=== PATIENT | male | born 1940 | race Caucasian/White ===

== ENCOUNTER 2017-04-10 14:38 | Emergency (ER) | payer MEDICARE, SELFPAY ==
--- NOTE | 2017-04-10 | CT_ITS ---
CT head/brain wo con HISTORY: Headache, pain, contusion, abrasion, hematoma following injury to the right side of the forehead ITS.REASON: FALL ORDERING PHYSICIAN: Darline Catalan MD PATIENT AGE: 76 years COMPARISON: None TECHNIQUE: Axial images obtained without contrast. Brain and bone windows reviewed. FINDINGS: No midline shift, mass effect, intracranial hemorrhage, hydrocephalus, or extra-axial fluid collection is evident. Mild soft tissue swelling is present in the right frontal region on the right The calvarium has an unremarkable appearance. No mastoid effusion. No sinus air-fluid levels.. IMPRESSION: 1. No acute intracranial findings. 2. Right frontal scalp hematoma
[2017-04-10 15:15] VITALS: BP 139/86; PULSE 60; RESP 16; TEMP 36.4; O2SAT 96; BMI 23.8
--- NOTE | 2017-04-10 15:31 | CT_ITS ---
CT cervical spine wo con INDICATION: Neck pain following injury ITS.REASON: fall ORDERING PHYSICIAN: Darline Catalan MD PATIENT AGE: 76 years COMPARISON: None TECHNIQUE: Axial images are obtained without contrast. Sagittal and coronal reformatted images are reviewed as well. FINDINGS: No acute fracture is evident. There is multilevel cervical spondylosis. C2-C3: Anterior osteophytes with 4 mm anterolisthesis of C2 and bulging disc with right-sided foraminal narrowing and mild left foraminal narrowing from uncovertebral hypertrophy. C3-C4: Degenerative disc disease with endplate hypertrophic change and minimal central disc protrusion. C4-C5: Degenerative disc disease with endplate disc osteophyte complex and uncovertebral hypertrophy with moderate to severe bilateral foraminal narrowing and bilateral lateral recess narrowing greater on the left. C5-C6: Severe degenerative disc disease with endplate disc osteophyte complex and uncovertebral hypertrophy with borderline bony canal stenosis and severe bilateral foraminal narrowing C6-C7: Degenerative disc disease with bulging disc and endplate osteophytes. Moderate bilateral foraminal narrowing. C7-T1 3 mm anterolisthesis of C7. Lung apices are clear. There are scattered small lymph nodes in the neck. IMPRESSION: 1. No acute fracture. 2. Severe cervical spondylosis as described above with degenerative disc disease, bulging disc with disc osteophyte complexes, and uncovertebral hypertrophy with varying degrees of lateral recess and foraminal narrowing and borderline canal stenosis. Please see above for detailed description at each level.
--- NOTE | 2017-04-10 15:31 | CT_ITS ---
CT facial bones wo con CLINICAL INDICATION: Right-sided facial pain and swelling following injury with abrasion and hematoma ITS.REASON: fall ORDERING PHYSICIAN: Darline Catalan MD PATIENT AGE: 76 years TECHNIQUE:Axial, sagittal, and coronal images are generated and reviewed without contrast COMPARISON: None FINDINGS: No acute fracture or dislocation evident. Soft tissue swelling is present in the right frontal region. No underlying fracture. There is an old nasal bone fracture on the left There are scattered small nodes in the neck. Prior bilateral ocular surgery with scleral banding. IMPRESSION: 1. No acute fracture. 2. Right frontal scalp hematoma. 3. Old left nasal bone fracture
--- NOTE | 2017-04-10 17:10 | HMH.EDFALL ---
ED Disposition Clinical Impression: Nasal fracture, Soft tissue swelling Disposition: Home, Self-Care Condition on Discharge: Good Additional Instructions: 1- rest. 2- wam soap and water. 3- daily neosporin. 4- do not blow your nose. 5- keflex 500 mg tid. 6- see pcp in am 7- follow up with dr ferguson. Prescriptions: cephALEXin [cephALEXin 500mg capsule] 500 mg PO QID #28 cap Referrals: Israel Ugalde [Primary Care Provider] - Kvng Ferguson MD [Staff Physician] - - Critical Care Critical Care Time: No Attestation: On 04/10/17, the high probability of a clinically significant, sudden or life threatening deterioration of the following system(s) required my full and direct attention, intervention and personal management. The time I documented below is in addition to time spent performing reported procedures but includes the following listed in this critical care notation. Medical Decision Making Vital Signs: 04/10/17 15:15 Temperature 97.6 F Temperature Source Oral Pulse Rate [Right Radial] 60 Respiratory Rate 16 Blood Pressure [Right Arm] 139/86 Blood Pressure Mean [Right Arm] 103 Blood Pressure Source [Right Arm] Automatic Cuff Blood Pressure Position [Right Arm] Supine 02 Sat by Pulse Oximetry 96 Oxygen Delivery Method Room Air Orders (Tests/Meds): ORDERS Category Date Time Status CT cervical spine wo con Stat Cat Scan 04/10/17 15:[address] facial bones wo con Stat Cat Scan 04/10/17 15:[address] head/brain wo con Routine Cat Scan 04/10/17 Taken - CT Data CT Scan: Head, C-Spine Time Received: 17:[address] Reviewed: Yes: I have viewed the radiologist's interpretation Preliminary Findings: Normal/NAD Findings Narrative: The CT scan shows soft tissue swelling righ tcheeck. Question old fracture nasal fracture. - Moisés Inquiry Pt receiving controlled substance: No Moisés was queried for this patient: No Fall HPI - General Chief Complaint: Fall Stated Complaint: AO 04/10/17 hit head on rock Mode of Arrival: Ambulatory Limitations: No Limitations Description of Symptoms (Recalled from ER Triage Doc. by RN): FELL AND HIT HEAD ON RIGHT SIDE. EMS SEEN PT HOURS AGO AND PT REFUSED TRANSFER AT THAT TIME. PT FELT THAT HE SHOULD COME TO HOSPITAL NOW D/T FEAR OF HIGH PAIN TOLERANCE. - History of Present Illness HPI Narrative: 76 years old white male who slipped over rocks at 10 am. He scarped his right face on the rocks.. Developed facial abrasions on the right cheek and right knee. There was no loss of consciousness there is no neck pain no nausea or vomiting. He is not on blood thinners. He was brought by the family for recheck. I discussed with him using [address] scan and he requested CT scan. MD complaint: fall Onset (ago): hour(s) (5-6 hours .) Fall from: standing Fall witnessed: no Place fall occurred: other Loss of consciousness: none Prolonged down time: no Symptoms prior to fall: none Context: tripped/slipped Location of injury: face, other (His right knee. ) Associated symptoms (after fall): denies - Related Data Previous Rx's Medication Instructions Recorded cephALEXin [cephALEXin 500mg 500 mg PO QID #28 cap 04/10/17 capsule] Allergies Allergy/AdvReac Type Severity Reaction Status Date / Time No Known Allergies Allergy Unverified 01/25/17 14:24 [facility] History I have reviewed the patient's past medical history: Yes (He has a right knee replacement history of infection. ) - Social History Alcohol Intake: never - Psychiatric History Expresses thoughts of harming self/others: None Suicide Plan Description: No Plan ROS Obtained: Yes All systems reviewed & no additional complaints Physical Exam - General General appearance: alert, in no apparent distress - Head Head exam: normocephalic, other (Superficial abrasions of the right cheekbone. No deformity. ) - Eye Eye exam: Present: normal ap
--- NOTE | 2017-04-10 17:13 | ED_ITS ---
ED Disposition Clinical Impression: Nasal fracture, Soft tissue swelling Disposition: Home, Self-Care Condition on Discharge: Good Additional Instructions: 1- rest. 2- wam soap and water. 3- daily neosporin. 4- do not blow your nose. 5- keflex 500 mg tid. 6- see pcp in am 7- follow up with dr ferguson. Prescriptions: cephALEXin [cephALEXin 500mg capsule] 500 mg PO QID #28 cap Referrals: Israel Ugalde [Primary Care Provider] - Kvng Ferguson MD [Staff Physician] - - Critical Care Critical Care Time: No Attestation: On 04/10/17, the high probability of a clinically significant, sudden or life threatening deterioration of the following system(s) required my full and direct attention, intervention and personal management. The time I documented below is in addition to time spent performing reported procedures but includes the following listed in this critical care notation. Medical Decision Making Vital Signs: 04/10/17 15:15 Temperature 97.6 F Temperature Source Oral Pulse Rate [Right Radial] 60 Respiratory Rate 16 Blood Pressure [Right Arm] 139/86 Blood Pressure Mean [Right Arm] 103 Blood Pressure Source [Right Arm] Automatic Cuff Blood Pressure Position [Right Arm] Supine 02 Sat by Pulse Oximetry 96 Oxygen Delivery Method Room Air Orders (Tests/Meds): ORDERS Category Date Time Status CT cervical spine wo con Stat Cat Scan 04/10/17 15:[address] facial bones wo con Stat Cat Scan 04/10/17 15:[address] head/brain wo con Routine Cat Scan 04/10/17 Taken - CT Data CT Scan: Head, C-Spine Time Received: 17:[address] Reviewed: Yes: I have viewed the radiologist's interpretation Preliminary Findings: Normal/NAD Findings Narrative: The CT scan shows soft tissue swelling righ tcheeck. Question old fracture nasal fracture. - Moisés Inquiry Pt receiving controlled substance: No Moisés was queried for this patient: No Fall HPI - General Chief Complaint: Fall Stated Complaint: AO 04/10/17 hit head on rock Mode of Arrival: Ambulatory Limitations: No Limitations Description of Symptoms (Recalled from ER Triage Doc. by RN): FELL AND HIT HEAD ON RIGHT SIDE. EMS SEEN PT HOURS AGO AND PT REFUSED TRANSFER AT THAT TIME. PT FELT THAT HE SHOULD COME TO HOSPITAL NOW D/T FEAR OF HIGH PAIN TOLERANCE. - History of Present Illness HPI Narrative: 76 years old white male who slipped over rocks at 10 am. He scarped his right face on the rocks.. Developed facial abrasions on the right cheek and right knee. There was no loss of consciousness there is no neck pain no nausea or vomiting. He is not on blood thinners. He was brought by the family for recheck. I discussed with him using [address] scan and he requested CT scan. MD complaint: fall Onset (ago): hour(s) (5-6 hours .) Fall from: standing Fall witnessed: no Place fall occurred: other Loss of consciousness: none Prolonged down time: no Symptoms prior to fall: none Context: tripped/slipped Location of injury: face, other (His right knee. ) Associated symptoms (after fall): denies - Related Data Previous Rx's Medication Instructions Recorded cephALEXin [cephALEXin 500mg 500 mg PO QID #28 cap 04/10/17 capsule] Allergies Allergy/AdvReac
[2017-04-10 17:30] VITALS: BP 135/78; PULSE 61; RESP 18; TEMP 36.7; O2SAT 96
== END 2017-04-10 17:30 | disposition home or self-care (01) ==
PROVIDERS: Emergency Provider Emergency Medicine; Family Provider Internal Medicine; PCP Internal Medicine
DX: S02.2XXA Fracture of nasal bones, initial encounter for closed fracture (principal); S00.81XA Abrasion of other part of head, initial encounter; W01.198A Fall on same level from slipping, tripping and stumbling with subsequent striking against other object, initial encounter; Y92.79 Other farm location as the place of occurrence of the external cause; Z96.651 Presence of right artificial knee joint
CPT/HCPCS: 70450; 70486; 72125; 99281

== ENCOUNTER 2017-08-02 19:12 | Emergency (ER) | payer MEDICARE, SELFPAY ==
[2017-08-02 19:18] VITALS: BP 169/78; PULSE 60; RESP 14; TEMP 36.4; O2SAT 100; BMI 24.9
--- NOTE | 2017-08-02 19:36 | HMH.EDEYEP ---
ED Disposition Clinical Impression: Foreign body of left eye Disposition: Home, Self-Care Condition on Discharge: Fair Instructions: DI for Skin Abscess Additional Instructions: 1- use gentamicine eye drops q 6 hours to the left eye. 2- cold compresses. 3- follow up withthe eye docpercy garza for afull eye exam. 4- return if needed. Referrals: Israel Ugalde [Primary Care Provider] - - Critical Care Critical Care Time: No Attestation: On 08/02/17, the high probability of a clinically significant, sudden or life threatening deterioration of the following system(s) required my full and direct attention, intervention and personal management. The time I documented below is in addition to time spent performing reported procedures but includes the following listed in this critical care notation. Medical Decision Making - Moisés Inquiry Pt receiving controlled substance: No Moisés was queried for this patient: No Vital Signs: 08/02/17 19:18 Temperature 97.6 F Temperature Source Oral Pulse Rate [Right Brachial] 60 Respiratory Rate 14 Blood Pressure [Right Arm] 169/78 Blood Pressure Mean [Right Arm] 108 Blood Pressure Source [Right Arm] Automatic Cuff Blood Pressure Position [Right Arm] Sitting 02 Sat by Pulse Oximetry 100 Oxygen Delivery Method Room Air Medical Decision Narrative: Under sterile technique using tetracaine and fluorescein stain I found a small tree-in-bud embedded in the low left lower fornix close to the epicanthus. Was removed in one piece using a Q-tip with no complication. Patient felt immediate relief. There was no corneal injury. Eye Problem HPI - General Chief complaint: Skin/Abscess/Foreign Body Stated complaint: AO [id number] FB(wood in Left eye Time Seen by Provider: 08/02/17 19:30 Mode of Arrival: Ambulatory Limitations: No Limitations Description of Symptoms (Recalled from ER Triage Doc. by RN): Pt has a piece of wood in his left eye. - History of Present Illness HPI Narrative: 77 years old male was walking [place] the [place] when a branch hit him in the left eye result of a foreign body in the left epicanthal. He is sitting in the room reading newspapers. chief complaint: foreign body Onset (ago): hour(s) (Hour prior to arrival.) Duration: constant Location: left eye Eye Symptoms: foreign body sensation Place: street/outdoors Mechanism: direct trauma Severity: mild Associated symptoms: none Treatments Prior to Arrival: none - Related Data Patient tetanus UTD: No Home Medications Medication Instructions Recorded Confirmed Bisoprol/Hydrochlorothiazide 5 mg PO DAILY 08/02/17 08/02/17 [Bisoprolol-Hctz 5-6.25 mg Tab] Losartan Potassium 100 mg PO DAILY 08/02/17 08/02/17 Allergies Allergy/AdvReac Type Severity Reaction Status Date / Time No Known Allergies Allergy Verified 08/02/17 19:25 [facility] History I have reviewed the patient's past medical history: Yes Medical History: Denies:: Diabetes Mellitus Type 1 Laterality Cases: Bilateral: Total Knee Replacement - Social History Alcohol Intake: never - Psychiatric History Expresses thoughts of harming self/others: None Suicide Plan Description: No Plan ROS Obtained: Yes All systems reviewed & no additional complaints Physical Exam - General General appearance: alert, in no apparent distress - Head Head exam: atraumatic, normocephalic, normal inspection - Eye Eye exam: Present: normal appearance, PERRL, EOMI. Absent: scleral icterus, conjunctival redness - ENT ENT exam: Present: normal exam, normal oropharynx, mucous membranes moist, TM's normal bilaterally, normal external ear exam - Neck Neck exam: Present: normal inspection, full ROM, trachea midline. Absent: meningismus, lymphadenopathy - Chest Chest inspection: Present: normal inspection, symmetric chest wall rise. Absent: tenderness - Respiratory Respiratory exam: Present: normal lung sounds bilaterally. Abse
--- NOTE | 2017-08-02 19:39 | ED_ITS ---
ED Disposition Clinical Impression: Foreign body of left eye Disposition: Home, Self-Care Condition on Discharge: Fair Instructions: DI for Skin Abscess Additional Instructions: 1- use gentamicine eye drops q 6 hours to the left eye. 2- cold compresses. 3- follow up withthe eye docpercy garza for afull eye exam. 4- return if needed. Referrals: Israel Ugalde [Primary Care Provider] - - Critical Care Critical Care Time: No Attestation: On 08/02/17, the high probability of a clinically significant, sudden or life threatening deterioration of the following system(s) required my full and direct attention, intervention and personal management. The time I documented below is in addition to time spent performing reported procedures but includes the following listed in this critical care notation. Medical Decision Making - Moisés Inquiry Pt receiving controlled substance: No Moisés was queried for this patient: No Vital Signs: 08/02/17 19:18 Temperature 97.6 F Temperature Source Oral Pulse Rate [Right Brachial] 60 Respiratory Rate 14 Blood Pressure [Right Arm] 169/78 Blood Pressure Mean [Right Arm] 108 Blood Pressure Source [Right Arm] Automatic Cuff Blood Pressure Position [Right Arm] Sitting 02 Sat by Pulse Oximetry 100 Oxygen Delivery Method Room Air Medical Decision Narrative: Under sterile technique using tetracaine and fluorescein stain I found a small tree-in-bud embedded in the low left lower fornix close to the epicanthus. Was removed in one piece using a Q-tip with no complication. Patient felt immediate relief. There was no corneal injury. Eye Problem HPI - General Chief complaint: Skin/Abscess/Foreign Body Stated complaint: AO [id number] FB(wood in Left eye Time Seen by Provider: 08/02/17 19:30 Mode of Arrival: Ambulatory Limitations: No Limitations Description of Symptoms (Recalled from ER Triage Doc. by RN): Pt has a piece of wood in his left eye. - History of Present Illness HPI Narrative: 77 years old male was walking [place] when a branch hit him in the left eye result of a foreign body in the left epicanthal. He is sitting in the room reading newspapers. chief complaint: foreign body Onset (ago): hour(s) (Hour prior to arrival.) Duration: constant Location: left eye Eye Symptoms: foreign body sensation Place: street/outdoors Mechanism: direct trauma Severity: mild Associated symptoms: none Treatments Prior to Arrival: none - Related Data Patient tetanus UTD: No Home Medications Medication Instructions Recorded Confirmed Bisoprol/Hydrochlorothiazide 5 mg PO DAILY 08/02/17 08/02/17 [Bisoprolol-Hctz 5-6.25 mg Tab] Losartan Potassium 100 mg PO DAILY 08/02/17 08/02/17 Allergies Allergy/AdvReac Type Severity Reaction Status Date / Time No Known Allergies Allergy Verified 08/02/17 19:25 [facility] History I have reviewed the patient's past medical history: Yes Medical History: Denies:: Diabetes Mellitus Type 1 Laterality Cases: Bilateral: Total Knee Replacement - Social History Alcohol Intake: never - Psychiatric History Expresses thoughts of harming self/others: None Suicide Plan Description: No Plan ROS Obtained: Yes All systems reviewed & no additional complaints Physical Exam - General G
[2017-08-02 19:47] VITALS: BP 160/78; PULSE 65; RESP 14; TEMP 36.9; O2SAT 100
== END 2017-08-02 19:57 | disposition home or self-care (01) ==
PROVIDERS: Emergency Provider Emergency Medicine; Family Provider Internal Medicine; PCP Internal Medicine
DX: T15.92XA Foreign body on external eye, part unspecified, left eye, initial encounter (principal); Z96.651 Presence of right artificial knee joint; Z96.652 Presence of left artificial knee joint
CPT/HCPCS: 65205; 99281

== ENCOUNTER → 2017-09-26 15:48 | Outpatient (CLI) | payer MEDICARE, SELFPAY ==
--- NOTE | 2017-09-26 15:57 | XR_ITS ---
XR foot LT min 3V, XR ankle LT min 3V Ordering Physician: Israel Ugalde Patient Age: 77 years: Male HISTORY: ITS.REASON: LT LATERAL ANKLE PAIN AND LT FOOT PAIN Left foot and ankle pain TECHNIQUE: Left foot 3 views. Left ankle 3 views. COMPARISON Left foot 3 views :07/27/2013 No previous left ankle study LEFT FOOT 3 VIEWS No acute findings. No fracture. No erosions. 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 There appears to been fusion at the PIP joint and possibly DIP joint of the second toe. Possibly the old healed fracture midshaft proximal phalanx second toe. Stable. The third fourth and fifth toe appear stable and intact. Metatarsals intact. Note very prominent sesamoid bone at the plantar aspect of first metatarsal neck. Mild degenerative changes first MTP joint. Plantar calcaneal spur 10 mm length noted. Sesamoid bone at the IMPRESSION: Left foot shows no acute findings. 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 Old Fusion at PIP joint second toe. Question Possible interval fusion at DIP joint second toe. Other observations in text LEFT ANKLE 3 VIEWS. There is narrowing at the medial aspect of the ankle mortise. Associated Sclerotic changes on both sides of this narrowed medial tibial talar joint... There is a large 3 cm x 0.8 cm old corticated osseous fragment off the tip of the medial malleolus.. May Reflects an old posttraumatic osseous fragment without osseous union.. Or possibly a large old hypertrophic bone fragment. The lateral malleolus appears intact. Posterior malleolus unremarkable. Plantar calcaneal spur again noted. IMPRESSION\......... Narrowing at the medial aspect of ankle mortise with slight inversion tilt of the talus associated. Sclerotic changes on both sides of this narrowed medial ankle joint reflecting advanced degenerative changes medially. Large old corticated osseous fragment off the tip of the medial malleolus. Likely reflecting old healed fracture fragment versus less likely large hypertrophic bone fragment
== END ==
PROVIDERS: PCP Internal Medicine; Visit Provider Internal Medicine
DX: M25.572 Pain in left ankle and joints of left foot; M79.672 Pain in left foot
CPT/HCPCS: 73610; 73630

== ENCOUNTER → 2017-11-02 14:47 | Outpatient (CLI) | payer MEDICARE, SELFPAY ==
--- NOTE | 2017-11-02 14:49 | MR_ITS ---
MR foot LT wo/w con HISTORY: Left foot pain and instability following injury ITS.REASON: ankle pain ORDERING PHYSICIAN: Deja Batista DPM PATIENT AGE: 77 years Comparison: 09/26/2017 TECHNIQUE: Standard multiplanar multiecho sequences are performed without and with gadolinium enhancement. FINDINGS: There are multiple abnormalities described in the ankle MRI report regarding the ankle and hindfoot. Please see that report for detail. This report will focus on the mid and forefoot. Phalanx of the great toe is either hypoplastic or there has been prior amputation of the tuft. No acute fractures are evident. Mild amount of fluid surrounds the flexor hallucis longus tendon sheath in the mid to hindfoot region consistent with tenosynovitis. No bone bruise or fracture. Metatarsals are normal in alignment. There are osteoarthritic changes at the head of the first metatarsal with sesamoids and there is mild hypertrophic changes of the distal aspect of the first metatarsal. IMPRESSION: 1. Tenosynovitis of the flexor hallucis longus tendon sheath with mild osteoarthritic change. 2. No acute fracture
--- NOTE | 2017-11-02 14:49 | MR_ITS ---
MR ankle LT wo/w con HISTORY: Left ankle pain and instability. Injury 6 weeks ago with persistent pain, lateral ankle pain numbness ITS.REASON: ankle pain ORDERING PHYSICIAN: Deja Batista DPM PATIENT AGE: 77 years Comparison: 09/26/2017 TECHNIQUE: Standard multiplanar multiecho sequences are performed without and with gadolinium enhancement. FINDINGS: Along the talar down medially there is a 6 mm area of decreased T1 and increased T2 signal. On the lateral aspect of the talar down there is an area of decreased T1 and increased T2 signal measuring approximately 8 mm. These areas are consistent with osteochondrosis. A prominent ununited ossification center or old fracture noted at the medial malleolus region. There is some bone marrow edema involving the distal aspect of the fibula just proximal to the level of the ankle joint. This shows some mild enhancement. The tibiotalar space is slightly widened laterally. The anterior talofibular ligament is not identified consistent with tear of the ATFL. There is a small amount of fluid in this region. The anterior posterior tibiofibular ligaments and posterior talofibular ligament appears intact. Bone marrow edema is present involving the lateral aspect of the calcaneus and the subtalar region. This area does demonstrate some enhancement as well. At this region there is thickening with some mild enhancement of the peroneus longus tendon with a small amount of fluid in this region. A partial tear of the tendon is a consideration. A complete tear is not felt to be present. The peroneus brevis is unremarkable. There are mild osteoarthritic changes of the subtalar joint with a small amount fluid at the sinus Tarsi region. Mild osteoarthritic changes are also present at the ankle joint IMPRESSION: 1. Bone marrow edema of the distal fibula and lateral mid aspect of the calcaneus. There is some mild enhancement at these areas. This may be due to bone bruises. One cannot exclude the possibility of infection. Please correlate with patient's clinical parameters 2. Increased T2 signal of the erroneous longus at the region of the abnormal signal of the calcaneus with a small amount fluid in this area consistent with tenosynovitis. A partial tear is also a consideration. 3. Osteochondrosis of the talar dome. 4. Nonvisualization of the anterior talofibular ligament consistent with ligamentous tear with ankle joint effusion
[2017-11-02 15:27] LABS: Blood Urea Nitrogen 22 mg/dL (7-18); Creatinine,Serum 1.07 mg/dL (0.70-1.30); Estimated Glomerular Filt Rate 67 ml/min (>60); GFR (African American) 81 ML/MIN (>60)
== END ==
PROVIDERS: Family Provider Internal Medicine; PCP Internal Medicine; Visit Provider Podiatrist
DX: M25.372 Other instability, left ankle (principal); M25.572 Pain in left ankle and joints of left foot; S82.52XK Displaced fracture of medial malleolus of left tibia, subsequent encounter for closed fracture with nonunion
CPT/HCPCS: 36415; 73223; 73720; 82565; 84520; A9576

== ENCOUNTER 2018-01-10 13:00 | Outpatient (RCR) | payer MEDICARE, SELFPAY ==
--- NOTE | 2017-11-10 10:37 | HMH.PTOPEV ---
PT Outpatient Evaluation Rehab PT Outpatient Evaluation Start: 11/10/17 09:09 Freq: Status: Active Protocol: Document 11/10/17 10:24 JIGNESH (Rec: 11/10/17 10:37 PHORNE [id number]) Electronically Signed By Cabrera Torres, PT 11/10/17 10:24 Outpatient Therapy Subjective History Subjective History Pt is 77 yowm who presents with c/o pain in left lateral ankle and foot x ~ 2 mos with insidious onset of symptoms. He reports dropping a heavy object on his foot several months ago, but had no problems until 1-2 mos later and is not sure if they are related. He reports hx of multiple ankle sprains throughout his lifetime. He had MRI which shows tendinitis of peroneus longus and nonexistent ATFL ligament. 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 Chief Complaint Pain Weakness Symptom Type Ache Sharp Symptoms Aggravated By Physical Activity Walking Prior Functional Limitations None Current Functional Limitations Standing Walking Symptom Description Constant but Variable Level of pain today (0-10) 2 Pain scale - at its worst (0-10) 9 Ankle/Foot Eval Gait Observation General Gait Pattern Observation Antalgic Gait Palpation Tenderness left Ankle/Foot Palpation Findings Tenderness Ankle/Foot Palpation Overall Comment ATFL and peroneal tendon ATF TTP positive ROM Ankle/Foot Dorsiflexion w/Knee Extended 0-5 Active Range Motion (degrees) Ankle/Foot Plantar Flexion Active Range 0-30 of Motion (degrees) Ankle/Foot Eversion Active Range of 0-5 Motion (degrees) Ankle/Foot Inversion Active Range of 0-45 Motion (degrees) MMT Ankle Dorsiflexion Strength Grade 5 Normal Ankle Plantarflexion Strength Grade 5 Normal Foot Eversion Strength Grade 4 Good Foot Inversion Strength Grade 4 Good Special Tests Ankle Anterior Drawer Test Positive Left Talar Tilt Test Positive Left Outpatient Therapy Assessment Impairments Problems/Impairmments Palpation Tenderness Impaired Range of Motion Impaired Strength
== END 2018-01-10 13:05 | disposition home or self-care (01) ==
LOC: PT 13:00
PROVIDERS: Family Provider Internal Medicine; PCP Internal Medicine; Visit Provider Podiatrist
DX: M25.372 Other instability, left ankle (principal); M25.572 Pain in left ankle and joints of left foot; M76.72 Peroneal tendinitis, left leg
CPT/HCPCS: 97010; 97014; 97016; 97033; 97035; 97110; 97140; 97163; G0283

== ENCOUNTER 2019-08-25 18:09 | Emergency (ER) | payer MEDICARE, SELFPAY ==
[2019-08-25] VITALS (7 sets, daily range): BP systolic 120–156; BP diastolic 55–79; PULSE 55–81; RESP 16–20; TEMP 36.6–36.7; O2SAT 96–99; BMI 24.0
--- NOTE | 2019-08-25 19:11 | ECG_ITS ---
APPROVED REPORT Exam: Resting ECG HR:53 bpm ECG Measurements Heart Rate 53 AXES [place] 180 P 50 QRSd 74 QRS 59 QT 436 T 53 QTc 409 <Conclusion> Sinus bradycardia Otherwise normal ECG Electronically signed by : Harshal Haley, 08/26/2019 06:35:45
--- NOTE | 2019-08-25 19:11 | XR_ITS ---
PROCEDURE: XR CHEST 2V Patient Age:79Y CLINICAL HISTORY: near syncope twice tonight but nonsmoker The COMPARISON: ABDPELW/O CT ABD PELVIS W/O CONTRAST from 02/20/[address] cervical spine wo con from 04/10/2017 FINDINGS: PA and lateral chest performed upright. No previous dedicated chest studies for comparison Lungs appear well expanded and clear with nothing definitely acute . Cardiomediastinal silhouette and pulmonary vascularity are within normal limits. The lungs are clear without infiltrates, suspicious nodules, or pleural effusions. No acute bony abnormalities.. A marginal osteophytes throughout the T-spine of most evident anteriorly to the right. IMPRESSION: Lungs clear with nothing definitely acute Dictated by: Mango Barnes MD 08/25/2019 19:55 Electronically signed by Mango Barnes MD in [place] 08/25/2019 19:55
[2019-08-25 19:32] LABS: Basophils % 0.6 % (0.1-2.0); Eosinophils # 0.3 K/mm3 (0.0-0.4); Eosinophils % 3.9 % (0.1-12.0); Hematocrit 43.1 % (42.0-52.0); Hemoglobin 15.3 g/dL (14.1-18.0); Lymphocytes # 1.8 K/mm3 (0.7-4.5); Lymphocytes % 25.8 % (10-50); Mean Corpuscular HGB Conc 35.6 g/dL (31.8-35.4); Mean Corpuscular Hemoglobin 31.6 pg (27.0-31.2); Mean Corpuscular Volume 88.8 fl (80-94); Mean Platelet Volume 8.5 fl (7.4-10.4); Monocytes # 0.5 K/mm3 (0.1-1.0); Monocytes % 6.6 % (1.7-9.3); Neutrophils # 4.3 K/mm3 (1.8-7.8); Neutrophils % 63.1 % (37.0-80.0); Platelet Count 228 K/mm3 (142-424); Red Blood Count 4.85 M/mm3 (4.60-6.20); Red Cell Distribution Width 12.8 % (11.5-17.5); White Blood Count 6.8 K/mm3 (4.8-10.8)
[2019-08-25 19:35] LABS: Anion Gap 14.4 mEq/L (5-15); Blood Urea Nitrogen 20 mg/dl (9-20); Calcium 9.9 mg/dl (8.4-10.2); Carbon Dioxide 30 mmol/L (22.0-30.0); Chloride 104 mmol/L (98-107); Creatinine Clearance Estimated 56 mL/min (50-200); Estimated Glomerular Filt Rate 58 ml/min (>60); GFR (African American) 70 ML/MIN (>60); Glucose 132 mg/dl (74-100); Potassium 4.4 mmoL/L (3.5-5.1); Sodium 144 mmol/L (136-145)
[2019-08-25 19:56] LABS: Troponin I < 0.01 ng/ml (0.00-0.034)
[2019-08-25 22:33] LABS: Troponin I < 0.01 ng/ml (0.00-0.034)
--- NOTE | 2019-08-25 22:49 | HMH.EDDIZZ ---
ED Disposition Clinical Impression: Near syncope Disposition: Home, Self-Care Condition on Discharge: Good Instructions: Fainting Additional Instructions: call pcp tuesday for testing and follow up and return if any problems Referrals: Israel Ugalde [Primary Care Provider] - - Critical Care Critical Care Time: No Attestation: On 08/25/19, the high probability of a clinically significant, sudden or life threatening deterioration of the following system(s) required my full and direct attention, intervention and personal management. The time I documented below is in addition to time spent performing reported procedures but includes the following listed in this critical care notation. Medical Decision Making - Medical Records Medical records reviewed: Yes: I reviewed the patient's medical records. - Moisés Inquiry Pt receiving controlled substance: No Vital Signs: 08/25/19 19:04 08/25/19 19:12 08/25/19 19:15 Temperature 98 F Temperature Source Oral Pulse Rate [Left Radial] 59 L 55 L Pulse Rate [Orthostatic Lying Left Radial] 59 L Pulse Rate [Orthostatic Standing Left Radial] 59 L Respiratory Rate 16 Blood Pressure [Orthostatic Lying Right Arm] 141/73 H Blood Pressure [Orthostatic Standing Right Arm] 145/65 H Blood Pressure [Right Arm] 144/73 H 145/55 H Blood Pressure Mean [Right Arm] 96 85 Blood Pressure Source [Right Arm] Automatic Cuff Blood Pressure Position [Right Arm] Sitting Sitting 02 Sat by Pulse Oximetry 98 96 Oxygen Delivery Method Room Air Room Air 08/25/19 19:55 08/25/19 20:30 08/25/19 21:00 Temperature Temperature Source Pulse Rate [Left Radial] 60 60 60 Pulse Rate [Orthostatic Lying Left Radial] Pulse Rate [Orthostatic Standing Left Radial] Respiratory Rate 18 20 18 Blood Pressure [Orthostatic Lying Right Arm] Blood Pressure [Orthostatic Standing Right Arm] Blood Pressure [Right Arm] 131/71 156/79 H 131/73 Blood Pressure Mean [Right Arm] 91 104 92 Blood Pressure Source [Right Arm] Automatic Cuff Automatic Cuff Automatic Cuff Blood Pressure Position [Right Arm] Supine Supine Supine 02 Sat by Pulse Oximetry 97 99 98 Oxygen Delivery Method Room Air Room Air Room Air - Lab Data Lab results reviewed: Yes: I reviewed the patient's lab results. Lab Results 08/25/19 18:25: WBC 6.8, RBC 4.85, Hgb 15.3, Hct 43.1, MCV 88.8, MCH 31.6 H, MCHC 35.6 H, RDW 12.8, Plt Count 228, MPV 8.5, Neut % (Auto) 63.1, Lymph % (Auto) 25.8, [place] % (Auto) 6.6, Eos % (Auto) 3.9, Baso % (Auto) 0.6, Neut # (Auto) 4.3, Lymph # (Auto) 1.8, [place] # (Auto) 0.5, Eos # (Auto) 0.3, Baso # (Auto) 0.0 08/25/19 18:25: Sodium 144, Potassium 4.4, Chloride 104, Carbon Dioxide 30, Anion Gap 14.4, BUN 20, Creatinine 1.20, Estimated Creat Clear 56, Estimated GFR 58 L, Est GFR ( Amer) 70, Glucose 132 H, Calcium 9.9, Troponin I < 0.01 08/25/19 22:00: Troponin I < 0.01 Result diagrams: 08/25/19 18:25 08/25/19 18:25 Orders (Tests/Meds): ORDERS Category Date Time Status Troponin I Q3H Lab 08/26/19 01:15 Ordered - ECG Data Tracing #1 Normal Sinus Rhythm: Yes Ischemic changes: non-specific ST-T wave changes Dizzy HPI - General Chief Complaint: Dizziness Stated Complaint: Almost passed out twice Time Seen by Provider: 08/25/19 21:00 Mode of Arrival: Ambulatory Source of Information: Patient, Medical Record Limitations: No Limitations Description of Symptoms (Recalled from ER Triage Doc. by RN): to ed per pvt car with c/o feeling lightheaded and almost passed out twice this afternoon . pt denies any nasuea, vomiting, chest pain, sob. pt denies any c/o at present - History of Present Illness HPI Narrative: pt with acute episode x 2 of brief near syncope with no aura/visual or nfocal neuro sx- not related to standing/meds or fever or exposure - no sense of cardiac arrthymia and no chest pain and no nausea or diaphoresis- MD complaint: near syncope Onset (ago):
[2019-08-25 22:53] LABS: Microscopic, Urine URINE MICROSCOPIC (MICROSCOPIC)
[2019-08-25 22:54] LABS: Appearance,Urine CLEAR (Clear); Bilirubin,Urine Negative (Negative); Blood, Urine Negative (Negative); Color,Urine YELLOW (Yellow); Glucose,Urine (UA) Negative (Negative); Ketones,Urine Negative (Negative); Leukocyte Esterase,Urine 1+ (Negative); Nitrate,Urine Negative (Negative); PH,Urine 5.5 (5.0-8.5); Protein,Urine Negative (Negative); Specific Gravity, Urine >= 1.030 (1.005-1.030); Urobilinogen,Urine 0.2 EU/dl (0.2)
== END 2019-08-26 00:03 | disposition home or self-care (01) ==
PROVIDERS: Emergency Medicine; Emergency Provider Emergency Medicine; PCP Internal Medicine
DX: R55 Syncope and collapse (principal); I10 Essential (primary) hypertension; E78.5 Hyperlipidemia, unspecified; Z88.0 Allergy status to penicillin; Z79.899 Other long term (current) drug therapy
CPT/HCPCS: 36415; 71046; 80048; 81001; 84484; 85025; 87086; 93005; 99284

== ENCOUNTER → 2019-08-29 14:45 | Outpatient (CLI) | payer MEDICARE, SELFPAY | PROVIDERS: PCP Internal Medicine; Visit Provider Internal Medicine | DX: R55 Syncope and collapse (principal); I10 Essential (primary) hypertension | CPT/HCPCS: 93225; 93226 ==

== ENCOUNTER → 2019-09-05 11:23 | Outpatient (CLI) | payer MEDICARE, SELFPAY ==
--- NOTE | 2019-09-05 | CA_ITS ---
APPROVED REPORT Exam: Exercise Treadmill Technologist: Cassi Morrow Ht: 6 ft 0 in Wt: 174 lbs BSA: 2.01 m2 HR: 56 bpm BP: 182/80 mmHg Indications: Hypertension/Synope Medical History Medications: Pravastatin,,,,, HCTZ,,,,, BisOPROLOL,,,,, GlUCOsamine,,,,, CoQ10,,,,, Stress Test Details Test: Marcus HR Resting HR: 60 bpm Max Heart Rate (APMHR): 140 bpm Max HR Achieved: 140 bpm Target HR (85% APMHR): 119 bpm % of APMHR: 100 Recovery HR: 62 bpm BP Resting BP: 182.0/80.0 mmHg Max BP: 210.0/74.0 mmHg Recovery BP: 179.0/81.0 mmHg ECG Clinical Exercise duration: 06:00 min Highest Stage Achieved: Exercise capacity: 7.0 METs Stress ECG Conclusion Resting ECG: Sinus bradycardia, PAC's Patient exercised 6:00 on Marcus Protocol. Test stopped due to shortness of air, fatigue. Symptoms: No chest pain. Arrhythmias/Ectopy: Occasional PAC. Occasional PVC, [address]-T Changes: 2.[address] depression laterally and 1.5 mm inferiorly. Conclusion: GXT positive for ischemia. Myoview images reported separately. Test Summary REST . . . . . . . Standing REST 10:58 0.0 0.0 60 . 182/ 80 . . Stage 1 01:00 10.0 1.7 85 . . . . Stage 1 02:00 10.0 1.7 103 . . . . Stage 1 03:00 10.0 1.7 107 . 164/ 60 . . Stage 2 01:00 12.0 2.5 122 . . . . Stage 2 . . . . . . . Myoview Injected Stage 2 02:00 12.0 2.5 130 . . . . Stage 2 03:00 12.0 2.5 140 . . . Stop exercise at 06:00 RECOVERY 01:00 0.0 0.0 109 . 210/ 74 . . RECOVERY 02:00 0.0 0.0 88 . 210/ 74 . . RECOVERY 03:00 0.0 0.0 62 . 210/ 74 . . RECOVERY 04:00 0.0 0.0 70 . 204/ 81 . . RECOVERY 05:00 0.0 0.0 60 . 204/ 81 . . RECOVERY 06:00 0.0 0.0 59 . 185/ 81 . . RECOVERY 07:00 0.0 0.0 63 . 185/ 81 . . RECOVERY 08:00 0.0 0.0 60 . 179/ 81 . . RECOVERY 09:00 0.0 0.0 61 . 179/ 81 . . RECOVERY 09:23 0.0 0.0 63 . 174/ 80 . . Electronically signed by : Juan Turpin, 09/06/2019 10:38:39
--- NOTE | 2019-09-05 | CA_ITS ---
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) Ht: 6 ft 0 in Wt: 174lbs BSA: 2.01 BP: 131/73 mmHg Indications: HTN, syncope 2D Dimensions LVOT 1.98 cm (M/F) 1.5-2.5 M-Mode Dimensions RVDd 2.70 cm (0.9-2.6) LVDd 4.36 cm (3.5-5.7) LVDs 3.27 cm (3.5-5.7) IVSd 1.01 cm (0.6-1.1) PWd 0.83 cm (0.6-1.1) EF (Teich) 49.70% FS 25.00% EDV (Teich) 85.80 mL ESV (Teich) 43.20 mL LV Diastology E/A Ratio 0.93 Mitral Valve MV A Velocity 84.00 (40-130 cm/s) Left Ventricle Left atrium is mildly enlarged, left ventricle is normal size, mild concentric left ventricular hypertrophy, visually estimated ejection fraction 55% with no regional wall motion abnormality, diastolic parameters are inconclusive. Right Ventricle Right atrium and right ventricular qualitatively normal size and function. Aortic Valve Aortic valve is thickened and calcified leaflet chordae display good mobility, there is no aortic stenosis or aortic insufficiency. Mitral Valve Mitral valve leaflets are minimally thickened, there is no mitral stenosis, there is mild mitral regurgitation. Tricuspid Valve Tricuspid valve is grossly normal, there is mild tricuspid regurgitation, tricuspid regurgitation jet velocity is inadequate for calculation of the right ventricular systolic pressure. Pulmonic Valve Pulmonic valve is poorly visualized. Great Vessels Aortic root is normal size. Pericardium No significant pericardial effusion noted Conclusion 1. Mildly enlarged left atrium, normal left ventricular size, mild concentric left ventricular hypertrophy, visually estimated ejection fraction 55% with no regional wall motion abnormality, diastolic parameters are inconclusive. 2. Thickened and calcified aortic valve without Doppler evidence of aortic stenosis or aortic insufficiency. 3. Mild mitral and tricuspid regurgitation. 4. No significant pericardial effusion noted. Electronically signed by : Juan Turpin, 09/06/2019 16:11:01
--- NOTE | 2019-09-05 11:26 | NM_ITS ---
APPROVED REPORT Exam: Nuclear Stress Test Indication: SOB, Syncope, Fatigue, HTN, High cholesterol, Family history Patient Location: Outpatient Stress Tech: Cassi Morrow [place] Tech:Vira [place], ARRT, RT (R)(N) Ht: 6 ft 0 in Wt: 174 lbs HR: 56 bpm BP: 182/80 mmHg BSA: 2.01 m2 History: SOB, Syncope, Fatigue, HTN, High cholesterol, Family history Procedure: Patient exercised on Marcus protocol 6:00 minutes and sec, resting heart rate 56 bpm, resting blood pressure 182/80 mmHg, with exercise maximum heart rate achived was 140 bpm which is Greater than 85 % of the maximum predicted heart rate and blood pressure was 210/74 mmHg. Test was stopped due to SOA and Fatigue. Patient denied any complaint of chest pain. Patient has Adequate exercise capacity, achieved 7.0 METs of workload on treadmill, the blood pressure response to exercise was Hypertensive. Electrocardiogram Resting electrocardiogram showed sinus rhythm, with exercise there is 1.[address] segment depression noted from the baseline EKG. The EKG portion of the exercise Myoview is positive for ischemia. Cardiac Stress and Resting SPECT Images: Cardiac Stress and Resting SPECT images were obtained using technetium 99m Myoview 31.4 mCi stress and 10.71 mCi at rest. Gated SPECT for the analysis of segmental wall motion and calculation of the ejection fraction also done. Cardiac stress and resting SPECT images show a fixed defect inferoseptally with normal coronary gated SPECT is likely secondary to soft tissue attenuation, no reversible ischemia seen, computer derived ejection fraction is 52% with no obvious regional wall motion abnormality, however there appears to be mild transient ischemic dilatation of the left ventricle raising the concerns for presence of balanced ischemia. Right ventricle is normal size and contractility. Conclusion: 1. The EKG portion of the exercise Myoview is positive for ischemia, patient has adequate exercise capacity achieved 7 mets of workload on treadmill, the blood pressure response to exercise was hypertensive, there was no exercise-induced chest discomfort, test was stopped due to shortness of breath. 2. No scintigraphic evidence of reversible ischemia seen, however there appears to be mild transient ischemic dilatation of the left ventricle seen raising the concerns for presence of balanced ischemia. Computer derived ejection fraction is 52% with no regional wall motion abnormality, right ventricle is normal size and contractility. 3. Abnormal exercise Myoview study. Electronically signed by : Juan Turpin, 09/06/2019 10:42:26
--- NOTE | 2019-09-05 12:24 | HMH.ITSHM ---
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 []LOSARTAN BISOPROLOL
== END ==
PROVIDERS: PCP Internal Medicine; Visit Provider Internal Medicine
DX: R55 Syncope and collapse (principal); I10 Essential (primary) hypertension; R06.02 Shortness of breath
CPT/HCPCS: 78452; 93017; 93306; A9502

== ENCOUNTER → 2019-12-19 16:09 | Outpatient (CLI) | payer MEDICARE, SELFPAY ==
--- NOTE | 2019-12-19 | MR_ITS ---
PROCEDURE: MR LUMBAR SPINE WO CON CLINICAL INDICATION: LBP Severe low back pain COMPARISON: CT ABDPELW/O CT ABD PELVIS W/O CONTRAST from 02/20/2013 CR LS5 LUMBAR SPINE 5 VIEWS from 09/04/2016 TECHNIQUE: Standard multiplanar multiecho sequences are performed without contrast. 3-D MIP and myelographic images are also rendered and reviewed FINDINGS: There is multilevel lumbar spondylosis. The spinal cord ends at the T12-L1 level. Multilevel anterior osteophytes are noted. T10-T11: Degenerative disc disease with anterior osteophytes. T12-L1: Degenerate disc disease with anterior osteophytes and minimal bulging disc with 2 mm retrolisthesis of T12. L1-L2: Degenerate disc disease with mild facet and ligamentum hypertrophy with mild lateral recess narrowing slightly greater on the right and mild bilateral foraminal narrowing. L2-L3: Degenerative disc disease with bulging disc and small central disc protrusion along with moderate to severe facet and ligamentum hypertrophy with moderate to severe right foraminal narrowing and moderate left foraminal narrowing. There is moderate bilateral lateral recess narrowing. There is borderline canal stenosis at 13 mm. This is accentuated by posterior lamina hypertrophy. L3-L4: Degenerative disc disease with bulging disc along with facet and ligamentum hypertrophy with severe right foraminal narrowing and moderate to severe left foraminal narrowing. L4-5: Degenerative disc disease with 5 mm anterolisthesis of L4 with bulging disc with moderate to severe facet and ligamentum hypertrophy. There is severe bilateral foraminal narrowing. There is transverse narrowing of the canal at 10 mm. L5-S1: Degenerative disc disease with grade 1 spondylitic spondylolisthesis of L5 on S1 of 7 mm. Prominent facet and ligamentum hypertrophic changes present. There is moderate to severe right foraminal narrowing and severe left foraminal narrowing from the facet and ligamentum hypertrophy. Bulging disc is present at this level. No extruded herniated disc is evident IMPRESSION: Abnormal MRI of the lumbar spine. There is multilevel lumbar spondylosis with degenerative disc disease, bulging disc, endplate osteophytes, along with facet and ligamentum hypertrophy with 5 mm anterolisthesis of L4 on L5 and grade 1 spondylitic spondylolisthesis of L5 on S1 with areas of severe lateral recess and foraminal narrowing. Please see above for detailed description at each level. Dictated by: Zak Baez MD 12/20/2019 11:27 Zak Baez MD in [place] 12/20/2019 11:27
== END ==
PROVIDERS: PCP Internal Medicine; Visit Provider Internal Medicine
DX: M54.5 Low back pain (principal)
CPT/HCPCS: 72148; 76376

== ENCOUNTER → 2020-01-30 15:24 | Outpatient (CLI) | payer MEDICARE, SELFPAY ==
--- NOTE | 2020-01-30 15:31 | XR_ITS ---
PROCEDURE: XR TIBIA FIBULA RT 2V CLINICAL INDICATION: RIGHT LOWER LEG PAIN COMPARISON: CR [id number] KNEE-4 OR 5 VIEWS-RT from 02/18/2015 CR XR KNEE RT 3V from 01/30/2020 FINDINGS: There is a total knee prosthesis present. The prosthesis appears be in good position. No fracture or dislocation. No lytic or blastic change. There is a small metallic density along the mid calf medially and may be something upon or within the patient. There are mild degenerative changes at the ankle joint. IMPRESSION: Status post total knee replacement. Please see above for detail possible small foreign body at the mid calf region medially Dictated by: Zak Baez MD 01/30/2020 16:04 Zak Baez MD in [place] 01/30/2020 16:04
--- NOTE | 2020-01-30 15:32 | XR_ITS ---
PROCEDURE: XR TIBIA FIBULA RT 2V CLINICAL INDICATION: RIGHT LOWER LEG PAIN COMPARISON: CR [id number] KNEE-4 OR 5 VIEWS-RT from 02/18/2015 CR XR KNEE RT 3V from 01/30/2020 FINDINGS: There is a total knee prosthesis present. The prosthesis appears be in good position. No fracture or dislocation. No lytic or blastic change. There is a small metallic density along the mid calf medially and may be something upon or within the patient. There are mild degenerative changes at the ankle joint. IMPRESSION: Status post total knee replacement. Please see above for detail possible small foreign body at the mid calf region medially Dictated by: Zak Baez MD 01/30/2020 16:04 Zak Baez MD in [place] 01/30/2020 16:04
== END ==
PROVIDERS: PCP Internal Medicine; Visit Provider Internal Medicine
DX: M25.561 Pain in right knee (principal); M79.661 Pain in right lower leg
CPT/HCPCS: 73562; 73590

== ENCOUNTER → 2020-03-12 10:57 | Outpatient (CLI) | payer MEDICARE, SELFPAY ==
--- NOTE | 2020-03-12 11:16 | XR_ITS ---
PROCEDURE: XR ANKLE LT MIN 3V CLINICAL INDICATION: LT ANKLE PAIN/SWELLING COMPARISON: CR [id number] XR ankle LT min 3V from 09/26/2017 FINDINGS: There is an old ununited fracture of the medial malleolar region. Osteoarthritic changes are present at the ankle joint with mild inversion the ankle. Bony hypertrophic changes are present at the distal aspect of the fibula. No acute fracture or dislocation is evident. No lytic or blastic change. IMPRESSION: No change no acute finding. Osteoarthritic changes are present at the ankle with narrowing of the joint space medially with inversion of the talus and bony hypertrophy of the medial and lateral malleolar region with an old fracture of the medial malleolus. Dictated by: Zak Baez MD 03/12/2020 12:01 Zak Baez MD in [place] 03/12/2020 12:01
== END ==
PROVIDERS: PCP Internal Medicine; Visit Provider Internal Medicine
DX: M25.572 Pain in left ankle and joints of left foot (principal); M25.472 Effusion, left ankle
CPT/HCPCS: 73610

== ENCOUNTER → 2020-06-09 15:32 | Outpatient (CLI) | payer MEDICARE, SELFPAY ==
[2020-06-09 16:39] LABS: Coronavirus 19 IgG Antibody Positive (Negative); Coronavirus 19 IgM Antibody Negative (Negative)
== END ==
PROVIDERS: Visit Provider Surgery
DX: Z01.812 Encounter for preprocedural laboratory examination (principal); Z20.822 Contact with and (suspected) exposure to COVID-19; Z12.11 Encounter for screening for malignant neoplasm of colon
CPT/HCPCS: 86328

== ENCOUNTER 2020-06-11 08:00 | Day surgery (SDC) | payer MEDICARE, SELFPAY ==
[2020-06-09 10:19] VITALS: BMI 23.7
[2020-06-11] VITALS (7 sets, daily range): BP systolic 99–185; BP diastolic 57–87; PULSE 54–66; RESP 18; TEMP 36.1–36.2; O2SAT 95–98
--- NOTE | 2020-06-11 10:05 | HMH.SCOPE ---
- Procedure: Date: 06/11/20 Patient Date of :: 1940 Procedure Performed:: Total colonoscopy to terminal ileum with polypectomy using snare and biopsy forceps Indications:: Patient is a 79-year-old male referred by Dr. Ugalde for colonoscopy. He is somewhat hard of hearing. He does state he has had a previous colonoscopy but has been quite a while . About 3 weeks ago prior to evaluation in the office he had multiple stools of significant fresh rectal bleeding. He does state that he had a hard stool the day before and had to strain. He has no family history of colon cancer. Of note, the patient is on Plavix due to coronary stents placed and sees Dr. Cohen. He has not had any subsequent bleeding. Performing Provider:: Harpal Maradiaga MD Referring Provider:: Israel Ugalde MD Sedation:: MAC sedation Procedure:: Patient was taken to endoscopy procedure room. He was positioned in lateral decubitus position. Adequate intravenous sedation was achieved with anesthesia titration of propofol. Digital examination was performed which was unremarkable. Variable stiffness Olympus colonoscope was inserted via the anus. Retroflexion was performed within the rectum immediately he has some minor nonbleeding internal hemorrhoids and rectal varicosity. Colonoscope was advanced to the cecum without difficulty. Colonic preparation was good. Ileocecal valve and appendiceal orifice were identified. Colonoscope was advanced a short distance into the terminal ileum briefly which appeared grossly normal. Colonoscope was withdrawn to the colon with careful surveillance. In the ascending colon there was a small diminutive possibly hyperplastic appearing polyp removed with cold cutting snare. At the hepatic flexure there was a tiny diminutive possible hyperplastic appearing polyp removed with biopsy forceps. In the descending colon there was a subtle polyp, possibly prolapsing polyp, removed with cold cutting snare. Rectosigmoid region there was a hyperplastic appearing polyp removed with cold biopsy forceps. He did have sigmoid diverticulosis. Colonoscope was withdrawn Findings:: Appreciable sigmoid diverticulosis Diminutive polyps as noted above, likely hyperplastic and benign. Nonbleeding internal hemorrhoids Recommendations:: Rectal bleeding likely due to internal hemorrhoids and less likely resolved diverticular bleed. Potential repeat colonoscopy pending the polyp results Complications:: None immediately apparent Estimated blood obtained (mL): 1
--- NOTE | 2020-06-11 11:25 | HMH.ANESCL ---
[facility] Anesthesia Checklist - Patient Identification Patient Identification: Arm Band - Structural Data Admitted From: Home Planned Operative Procedure/s: Colonoscopy Consent for Planned Operative Procedure(s) Verified: Yes Verified Documents: Surgical Consent, History and Physical - NPO Status Verified Time NPO: 00:00 - Additional verifications Anesthesia Reactions: No - Airway Assessment C-Spine Mobility Assessed: Yes TMJ Mobility Assessed: Yes Dentition: Good Dentition - Neurological Assessment Level of Consciousness: Awake, Alert - Anesthesia Plan Anesthesia Risk discussed: Yes Anesthesia Plan: Verified ASA Class: III Anesthesia Type: [facility] History Medical History: Reports:: Hyperlipidemia, Hypertension Denies:: Cancer, Diabetes Mellitus Type 1, Diabetes Mellitus Type 2, Internal Pacemaker, Lung Disease, MRSA, Seizures *Have you ever received a pneumonia vaccine?: Yes *Have you received a flu vaccine this season?: Yes Other Medical History: Reports: Arthritis Anesthesia experience/problems:: None Laterality Cases: Left: Carpal Tunnel Release, Bilateral: Total Knee Replacement Other Surgeries: Yes: Other. No: Pacemaker Amputation: No Fractures: Yes - *Social History Last grade of school completed: Some college Smoking Status: Never smoker Alcohol Intake: never Alcohol Intake Frequency:: other Substance Use Type: denies use *Occupational Status:: retired Housing: house Household Members: spouse *Travel in the last 8 weeks: None Family Hx:: Cancer, Hypertension, Heart Attack, Stroke
== END 2020-06-11 11:11 | disposition home or self-care (01) ==
LOC: OUTP 08:01
PROVIDERS: PCP Internal Medicine; Visit Provider Surgery
PROC: 0DJD8ZZ Inspection of Lower Intestinal Tract, Via Natural or Artificial Opening Endoscopic (ICD-10-PCS; principal; 2020-06-11 09:00)
DX: K57.30 Diverticulosis of large intestine without perforation or abscess without bleeding (principal); K63.5 Polyp of colon; K64.0 First degree hemorrhoids; Z79.02 Long term (current) use of antithrombotics/antiplatelets; E78.5 Hyperlipidemia, unspecified; I10 Essential (primary) hypertension; M19.90 Unspecified osteoarthritis, unspecified site; Z82.3 Family history of stroke; Z80.9 Family history of malignant neoplasm, unspecified; Z82.49 Family history of ischemic heart disease and other diseases of the circulatory system; Z79.82 Long term (current) use of aspirin; Z79.899 Other long term (current) drug therapy
CPT/HCPCS: 45380; 45385; 88305

== ENCOUNTER 2020-07-16 18:23 | Emergency (ER) | payer MEDICARE, SELFPAY ==
[2020-07-16 18:24] VITALS: BP 182/75; PULSE 56; RESP 18; TEMP 36.4; O2SAT 100; BMI 23.6
[2020-07-16 18:30] VITALS: BP 185/87; PULSE 52; RESP 17; O2SAT 100; BMI 23.6
--- NOTE | 2020-07-16 18:43 | ECG_ITS ---
APPROVED REPORT Exam: Resting ECG HR:53 bpm ECG Measurements Heart Rate 53 AXES [place] 192 P 89 QRSd 74 QRS 52 QT 438 T 66 QTc 410 Conclusion Sinus bradycardia Otherwise normal ECG Electronically signed by : Harshal Haley, 07/19/2020 11:02:44
[2020-07-16 18:47] VITALS: BMI 23.6
--- NOTE | 2020-07-16 18:48 | XR_ITS ---
PROCEDURE INFORMATION: Exam: XR Chest Exam date and time: 07/16/2020 6:48 PM Age: 80 years old Clinical indication: Prior surgery; Surgery date: 6+ months; Patient HX: Syncopal, no chest symptoms, HX of stents TECHNIQUE: Imaging protocol: XR of the chest. Views: 1 view. COMPARISON: CR XR CHEST 2V 08/25/2019 7:19 PM FINDINGS: Lungs: Calcified granulomas within the lower lobes bilaterally. Lungs are mildly hyperexpanded, compatible with chronic obstructive pulmonary physiologic changes. Pleural spaces: Unremarkable. No pleural effusion. No pneumothorax. Heart/Mediastinum: Normal. Vasculature: Atherosclerotic disease of the thoracic aorta. Bones/joints: Multilevel thoracic spine degenerative disc space narrowing and osteophyte formation. IMPRESSION: No acute cardiopulmonary abnormality.
[2020-07-16 19:04] LABS: Basophils % 0.6 % (0.1-2.0); Eosinophils # 0.3 K/mm3 (0.0-0.4); Eosinophils % 5.1 % (0.1-12.0); Hematocrit 36.5 % (42.0-52.0); Hemoglobin 12.9 g/dL (14.1-18.0); Lymphocytes # 1.4 K/mm3 (0.7-4.5); Lymphocytes % 27.6 % (10-50); Mean Corpuscular HGB Conc 35.3 g/dL (31.8-35.4); Mean Corpuscular Hemoglobin 30.4 pg (27.0-31.2); Mean Corpuscular Volume 86.1 fl (80-94); Mean Platelet Volume 8.7 fl (7.4-10.4); Monocytes # 0.4 K/mm3 (0.1-1.0); Monocytes % 7.4 % (1.7-9.3); Neutrophils % 59.3 % (37.0-80.0); Platelet Count 180 K/mm3 (142-424); Red Blood Count 4.24 M/mm3 (4.60-6.20)
[2020-07-16 19:11] LABS: Anion Gap 15.2 mEq/L (5-15); Blood Urea Nitrogen 24 mg/dl (9-20); Calcium 9.1 mg/dl (8.4-10.2); Carbon Dioxide 24 mmol/L (22.0-30.0); Chloride 106 mmol/L (98-107); Creatinine Clearance Estimated 59 mL/min (50-200); Estimated Glomerular Filt Rate 64 ml/min (>60); GFR (African American) 78 ML/MIN (>60); Glucose 116 mg/dl (74-100); Potassium 4.2 mmoL/L (3.5-5.1); Sodium 141 mmol/L (136-145)
[2020-07-16 19:23] LABS: Troponin I < 0.01 ng/ml (0.00-0.034)
[2020-07-16 19:31] VITALS: BP 143/70; PULSE 56; RESP 19; O2SAT 97
--- NOTE | 2020-07-16 19:39 | HMH.EDGENADL ---
ED Disposition Clinical Impression: Lightheadedness Disposition: Home, Self-Care Condition on Discharge: Good Additional Instructions: Call Dr. Cantor tomorrow to make an appointment to be seen as soon as possible for evaluation. Return to the emergency room if worse lightheadedness or if you faint. Return if chest pain or shortness of breath. Referrals: Israel Ugalde [Primary Care Provider] - - Critical Care Critical Care Time: No Attestation: On 07/16/20, the high probability of a clinically significant, sudden or life threatening deterioration of the following system(s) required my full and direct attention, intervention and personal management. The time I documented below is in addition to time spent performing reported procedures but includes the following listed in this critical care notation. Medical Decision Making - Medical Records Medical records reviewed: Yes: I reviewed the patient's medical records. MR Sheldon: Reviewed records from his evaluation for lightheadedness last year. Seen in the emergency department with a negative work-up. Had an outpatient stress test that was positive. He says he was then referred to Dr. Cantor and had a heart cath with stent placement. - Moisés Inquiry Pt receiving controlled substance: No Vital Signs: 07/16/20 18:24 07/16/20 18:30 07/16/20 19:31 Temperature 97.5 F L Temperature Source Oral Pulse Rate 56 L Pulse Rate [Left Brachial] 56 L 52 L Respiratory Rate 18 17 19 Blood Pressure 143/70 H Blood Pressure [Left Arm] 182/75 H 185/87 H Blood Pressure Mean [Left Arm] 110 119 Blood Pressure Source [Left Arm] Manual Cuff/ Doppler Automatic Cuff Blood Pressure Position [Left Arm] Sitting Sitting 02 Sat by Pulse Oximetry 100 100 97 Oxygen Delivery Method Room Air Room Air - Lab Data Lab Results 07/16/20 18:53: WBC 5.0, RBC 4.24 L, Hgb 12.9 L, Hct 36.5 L, MCV 86.1, MCH 30.4, MCHC 35.3, RDW 13.0, Plt Count 180, MPV 8.7, Neut % (Auto) 59.3, Lymph % (Auto) 27.6, [place] % (Auto) 7.4, Eos % (Auto) 5.1, Baso % (Auto) 0.6, Neut # (Auto) 3.0, Lymph # (Auto) 1.4, [place] # (Auto) 0.4, Eos # (Auto) 0.3, Baso # (Auto) 0.0 07/16/20 18:53: Sodium 141, Potassium 4.2, Chloride 106, Carbon Dioxide 24, Anion Gap 15.2 H, BUN 24 H, Creatinine 1.10, Estimated Creat Clear 59, Estimated GFR 64, Est GFR ( Amer) 78, Glucose 116 H, Calcium 9.1, Troponin I < 0.01 Result diagrams: 07/16/20 18:53 07/16/20 18:53 Orders (Tests/Meds): ORDERS Category Date Time Status Troponin I Q3H Lab 07/16/20 22:00 Ordered Troponin I Q3H Lab 07/17/20 01:00 Ordered Medical Decision Narrative: Patient states that 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 He is stable at this point and I feel he can follow-up as an outpatient and does not require transfer. He is advised to call Dr. Cantor's office tomorrow to arrange expeditious follow-up. General Adult HPI - General Chief complaint: Dizziness Stated complaint: H headed Time Seen by Provider: 07/16/20 19:39 Mode of Arrival: Ambulatory Source of Information: Patient Limitations: No Limitations Description of Symptoms (Recalled from ER Triage Doc. by RN): PATIENT C/O EPISODES OF LIGHTHEADEDNESS AND NEAR-SYNCOPE. HE REPORTS SEEING AN [facility] . 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 PATIENT DENIES CHEST PAIN AT THIS TIME - History of Present Illness HPI narrative: States that he is having episodes of lightheadedness for the past week. He had some episodes a week ago, some yesterday, and then [facility] Currently asymptomatic. No syncope. Not associated with chest pain, shortness of breath, nausea, diaphoresis, palpitations, or tachycardia. He is concerned because he had similar symptoms, although worse, last year and was discovered to have coronary artery
[2020-07-16 20:01] VITALS: BP 152/67; PULSE 58; RESP 17; O2SAT 97
[2020-07-16 20:22] VITALS: BP 151/67; PULSE 55; RESP 18; TEMP 36.6; O2SAT 98
== END 2020-07-16 20:25 | disposition home or self-care (01) ==
PROVIDERS: Emergency Provider Emergency Medicine; PCP Internal Medicine
DX: R42 Dizziness and giddiness (principal); R11.0 Nausea; I10 Essential (primary) hypertension; E78.5 Hyperlipidemia, unspecified; Z79.899 Other long term (current) drug therapy
CPT/HCPCS: 71045; 80048; 84484; 85025; 93005; 99282

== ENCOUNTER → 2020-07-29 16:02 | Outpatient (POV) | payer MEDICARE, SELFPAY | PROVIDERS: Visit Provider Dermatology | DX: Z00.00 Encounter for general adult medical examination without abnormal findings (principal) ==

== ENCOUNTER 2020-09-12 20:31 | Emergency (ER) | payer MEDICARE, SELFPAY ==
[2020-09-12 20:35] VITALS: BP 122/68; PULSE 62; RESP 20; TEMP 36.8; O2SAT 97
[2020-09-12 20:36] VITALS: BMI 23.7
--- NOTE | 2020-09-12 20:36 | XR_ITS ---
PROCEDURE INFORMATION: Exam: XR Chest Exam date and time: 09/12/2020 8:36 PM Age: 80 years old Clinical indication: Injury or trauma; Fall; Blunt trauma (contusions or hematomas); Additional info: Trauma alert TECHNIQUE: Imaging protocol: XR of the chest. Views: 1 view. COMPARISON: CR XR CHEST PORTABLE 07/16/2020 6:56 PM FINDINGS: Lungs: Mild diffuse interstitial prominence/coarsening suggesting COPD. No focal consolidation. Pleural spaces: No pleural effusion. No pneumothorax. Heart/Mediastinum: Normal heart size. Aortic atherosclerosis. Bones/joints: Scattered degenerative changes. No acute displaced fracture. IMPRESSION: Findings suspicious for COPD. No acute finding.
--- NOTE | 2020-09-12 20:36 | XR_ITS ---
PROCEDURE INFORMATION: Exam: XR Pelvis Exam date and time: 09/12/2020 8:36 PM Age: 80 years old Clinical indication: Injury or trauma; Fall; Blunt trauma (contusions or hematomas); Left; Hip; Additional info: Trauma alert TECHNIQUE: Imaging protocol: XR pelvis. Views: 1 or 2 view. COMPARISON: MR LUMBAR SPINE WO CON 12/19/2019 4:27 PM FINDINGS: Bones/joints: No acute displaced fracture. Mild degenerative change of both hips. Degenerative spurring of the SI joints and pubic symphysis. Lower lumbar spondylosis. Nonaggressive focus of sclerosis, possibly a bone island, in the left femoral diaphysis is partially visualized. Soft tissues: Unremarkable. Vasculature: Scattered atherosclerotic calcifications. IMPRESSION: No acute displaced fracture.
--- NOTE | 2020-09-12 20:38 | PC.NURSE ---
2130 - trauma alert called 2137 - trauma alert cancelled
--- NOTE | 2020-09-12 20:39 | CT_ITS ---
PROCEDURE INFORMATION: Exam: CT Abdomen And Pelvis With Contrast Exam date and time: 09/12/2020 8:39 PM Age: 80 years old Clinical indication: Injury or trauma; Additional info: Trauma alert, fall off ladder TECHNIQUE: Imaging protocol: Computed tomography of the abdomen and pelvis with contrast. Radiation optimization: All CT scans at this facility use at least one of these dose optimization techniques: automated exposure control; mA and/or kV adjustment per patient size (includes targeted exams where dose is matched to clinical indication); or iterative reconstruction. Contrast material: ISOVUE; Contrast volume: 100 ml; Contrast route: IV; COMPARISON: CR XR PELVIS 1-2V 09/12/2020 8:43 PM FINDINGS: Lungs: The visualized lung bases are unremarkable. Liver: No evidence of acute hepatic injury. Few scattered subcentimeter low-attenuation liver lesions are too small for definitive evaluation, but statistically most likely benign. Gallbladder and bile ducts: No gallbladder wall thickening. No radio-opaque stones. No common bile duct dilation. Pancreas: Unremarkable. No main pancreatic duct dilation. Spleen: Normal. No splenomegaly. Adrenal glands: Unremarkable. Kidneys and ureters: No hydronephrosis. There is a 1.3 cm left renal cyst, with probable thin internal septation (Bosniak category 2), no follow-up recommended. Stomach and bowel: Total colonic diverticulosis, most extensive in the sigmoid region. No evidence of acute diverticulitis. No bowel obstruction. Small hiatal hernia. Appendix: Normal appendix, with calcification noted the appendiceal tip. Intraperitoneal space: No pneumoperitoneum. No ascites. Vasculature: Normal caliber of the abdominal aorta. Scattered calcified atherosclerotic plaque. Lymph nodes: Mildly enlarged mary hepatis lymph nodes measuring up to 1.2 cm in short axis, nonspecific, but probably reactive in nature. Scattered subcentimeter retroperitoneal lymph nodes. Urinary bladder: Bladder is partially fluid-filled, without evidence of wall thickening. Reproductive: Prostatomegaly. Bones/joints: [employer] image demonstrates a remote right forearm fracture with plate and screw fixation. At least 1 of the fixation screws appears to be fractured. No acute fracture. Chronic L5 pars defects with grade 1 anterolisthesis at L5-S1. Chronic mild degenerative malalignment at other lumbar levels. Multilevel spondylosis. Soft tissues: Unremarkable. IMPRESSION: 1. No evidence of acute traumatic injury within the abdomen/pelvis. 2. Chronic findings as above.
--- NOTE | 2020-09-12 20:39 | CT_ITS ---
PROCEDURE INFORMATION: Exam: CT Thoracic Spine Without Contrast Exam date and time: 09/12/2020 8:39 PM Age: 80 years old Clinical indication: Injury or trauma; Additional info: Trauma alert, fall off ladder TECHNIQUE: Imaging protocol: Computed tomography images of the thoracic spine without contrast. Radiation optimization: All CT scans at this facility use at least one of these dose optimization techniques: automated exposure control; mA and/or kV adjustment per patient size (includes targeted exams where dose is matched to clinical indication); or iterative reconstruction. COMPARISON: MR LUMBAR SPINE WO CON 12/19/2019 4:27 PM FINDINGS: Vertebrae: Thoracic vertebral body heights are maintained. No acute fracture of the thoracic spine. Mild retrolisthesis of T12 on L1 is unchanged compared to prior MRI of 12/19/2019. Grade 1 anterolisthesis of C7 on T1 is favored to be chronic/degenerative in nature. Discs/Spinal canal/Neural foramina: Multilevel spondylosis with scattered neural foraminal narrowing. No evidence of a high-grade spinal canal stenosis. Soft tissues: Incidental punctate nonobstructing left renal calculus and 1.1 cm left renal cyst. Vasculature: Aortic atherosclerosis. Lungs: Visualized lungs demonstrate mild bronchial wall thickening suggesting chronic bronchitis. There is also paraseptal emphysema/bleb formation in the medial right lower lobe. Biapical scarring. Heart: Coronary stents. IMPRESSION: 1. No acute thoracic spine fracture. 2. Grade 1 anterolisthesis of C7 on T1 is favored to be chronic/degenerative. Unchanged mild chronic grade 1 anterolisthesis of C7 on T1 as compared to 12/19/2019. 3. Spondylosis with scattered neural foraminal narrowing.
--- NOTE | 2020-09-12 20:39 | CT_ITS ---
PROCEDURE INFORMATION: Exam: CT Head Without Contrast Exam date and time: 09/12/2020 8:39 PM Age: 80 years old Clinical indication: Injury or trauma; Additional info: Trauma alert, fall off ladder TECHNIQUE: Imaging protocol: Computed tomography of the head without contrast. Radiation optimization: All CT scans at this facility use at least one of these dose optimization techniques: automated exposure control; mA and/or kV adjustment per patient size (includes targeted exams where dose is matched to clinical indication); or iterative reconstruction. COMPARISON: HEADWO CT head/brain wo con 04/10/2017 3:53 PM FINDINGS: Brain: Mild age-related volume loss. No acute intracranial hemorrhage, midline shift or intracranial mass effect. Cerebral ventricles: No hydrocephalus. Paranasal sinuses: Visualized sinuses are unremarkable. No fluid levels. Mastoid air cells: Visualized mastoid air cells are well aerated. Bones/joints: Unremarkable. No acute fracture. Soft tissues: Unremarkable. IMPRESSION: No acute intracranial abnormality.
--- NOTE | 2020-09-12 20:39 | CT_ITS ---
PROCEDURE INFORMATION: Exam: CT Lumbar Spine Without Contrast Exam date and time: 09/12/2020 8:39 PM Age: 80 years old Clinical indication: Injury or trauma; Additional info: Trauma alert, fall off ladder TECHNIQUE: Imaging protocol: Computed tomography images of the lumbar spine without contrast. Radiation optimization: All CT scans at this facility use at least one of these dose optimization techniques: automated exposure control; mA and/or kV adjustment per patient size (includes targeted exams where dose is matched to clinical indication); or iterative reconstruction. COMPARISON: MR LUMBAR SPINE WO CON 12/19/2019 4:27 PM FINDINGS: Vertebrae: Lumbar vertebral body heights are maintained. No acute fracture. Chronic bilateral L5 pars defects with grade 1 anterolisthesis of L5 on S1. Grade 1 retrolisthesis of T12 on L1 and grade 1 anterolisthesis of L4 on L5 are also unchanged compared to prior lumbar spine MRI exam of 12/19/2019. Multilevel disc height loss and facet osteoarthropathy. 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 L1-L2: Mild bilateral neural foraminal narrowing. L2-L3: Moderate to high-grade spinal canal stenosis. Probable high-grade lateral recess stenosis, which may affect the descending L3 nerve roots. High-grade bilateral neural foraminal stenosis with exiting nerve root impingement. L3-L4: Moderate spinal canal stenosis. Moderate effacement of the lateral recesses. High-grade bilateral neural foraminal stenosis with exiting nerve root impingement. L4-L5: [id number] spinal canal stenosis. Moderate to high-grade lateral recess effacement, which may affect the descending L5 nerve roots. High-grade bilateral neural foraminal stenosis with exiting nerve root impingement. L5-S1: Chronic pars defects. High-grade bilateral neural foraminal stenosis with exiting nerve root impingement. Mild right greater than left lateral recess effacement. No spinal canal stenosis. Kidneys and ureters: Incidental punctate nonobstructing left renal calculus and 1.1 cm left renal cyst (no follow-up of this cyst recommended). Stomach and bowel: Incidental colonic diverticulosis. Vasculature: Aortic atherosclerosis. Soft tissues: Unremarkable. IMPRESSION: 1. No acute lumbar spine fracture. 2. Chronic L5 pars defects. Multilevel mild malalignment is unchanged compared to 12/19/2019. 3. Spondylosis as detailed above.
--- NOTE | 2020-09-12 20:39 | CT_ITS ---
PROCEDURE INFORMATION: Exam: CTA Chest With Contrast Exam date and time: 09/12/2020 8:39 PM Age: 80 years old Clinical indication: Injury or trauma; Additional info: Trauma alert, fall off ladder TECHNIQUE: Imaging protocol: Computed tomographic angiography of the chest with contrast. 3D rendering (Not supervised by radiologist): MIP and/or 3D reconstructed images were created by the technologist. Radiation optimization: All CT scans at this facility use at least one of these dose optimization techniques: automated exposure control; mA and/or kV adjustment per patient size (includes targeted exams where dose is matched to clinical indication); or iterative reconstruction. Contrast material: ISOVUE 370; Contrast volume: 100 ml; Contrast route: INTRAVENOUS (IV); COMPARISON: CR XR CHEST PORTABLE 09/12/2020 8:41 PM FINDINGS: Pulmonary arteries: No incidental pulmonary embolus. Aorta: Thoracic aorta is upper limits of normal in caliber. Scattered atherosclerotic plaque. No evidence of dissection, within limits of suboptimal contrast opacification of the systemic arterial circulation. Lungs: Mild diffuse bronchial wall thickening suggesting chronic bronchitis. Scarring with bleb formation in the posteromedial right lower lobe. No airspace consolidation or evidence of pneumonia. Indeterminate 0.3 cm nodule in the right lower lobe anteriorly (series 2, image 205). Pleural spaces: Unremarkable. No pneumothorax. No pleural effusion. Heart: Normal heart size. No pericardial effusion. Coronary stents. Mediastinal space: No mediastinal hematoma. Small hiatal hernia. Lymph nodes: Nonspecific borderline/mildly enlarged bilateral hilar and subcarinal lymph nodes, measuring up to 1 cm in short axis. These are probably reactive in nature. Shotty bilateral axillary lymph nodes, which appear to have fatty radha, likely benign/reactive. Bones/joints: Scattered degenerative changes. No acute fracture. Soft tissues: Unremarkable. IMPRESSION: 1. No evidence of acute traumatic injury within the thorax. 2. Chronic findings as above, including an indeterminate 0.3 cm nodule in the right lower lobe. For patients at low risk (minimal or absent history of smoking and of other known risk factors), no routine follow-up is indicated. For patients at high risk (history of smoking or of other known risk factors), consider optional CT Chest at 12 months. (Reference: Tiara) References: Tiara Kay, et al. Guidelines for Management of Incidental Pulmonary Nodules Detected on CT Images: From the Fleischner Society 2017. Radiology. 2017;284(1):228-243.
--- NOTE | 2020-09-12 20:39 | CT_ITS ---
PROCEDURE INFORMATION: Exam: CT Cervical Spine Without Contrast Exam date and time: 09/12/2020 8:39 PM Age: 80 years old Clinical indication: Injury or trauma; Additional info: Trauma alert, fall off ladder TECHNIQUE: Imaging protocol: Computed tomography images of the cervical spine without contrast. Radiation optimization: All CT scans at this facility use at least one of these dose optimization techniques: automated exposure control; mA and/or kV adjustment per patient size (includes targeted exams where dose is matched to clinical indication); or iterative reconstruction. COMPARISON: [facility] CT cervical spine wo con 04/10/2017 3:56 PM FINDINGS: Bones/joints: Grade 1 anterolisthesis of C2 on C3. Trace retrolisthesis of C4 on C5. Vertebral body heights are preserved. Nonspecific straightening. Moderate degenerative change about the dens. Moderate prevertebral osteophytosis. There are bilateral facet joint degenerative changes. Discs/Spinal canal/Neural foramina: At least mild central canal stenosis at C4-C5 and C5-C6. Multilevel cervical foraminal stenoses. Lungs: Lung apices are normal. Pleural spaces: No visible pneumothorax. Vasculature: Vascular calcification. Soft tissues: Unremarkable. IMPRESSION: No acute cervical spine fracture.
[2020-09-12 20:52] LABS: Chloride 108 mmol/L (98-107)
[2020-09-12 20:53] LABS: Sodium 144 mmol/L (136-145)
[2020-09-12 20:54] LABS: Basophils # 0.1 K/mm3 (0-0.2); Basophils % 0.7 % (0.1-2.0); Eosinophils # 0.4 K/mm3 (0.0-0.4); Hematocrit 37.9 % (42.0-52.0); Hemoglobin 12.9 g/dL (14.1-18.0); Lymphocytes # 1.6 K/mm3 (0.7-4.5); Lymphocytes % 24.7 % (10-50); Mean Corpuscular Hemoglobin 29.1 pg (27.0-31.2); Mean Corpuscular Volume 85.6 fl (80-94); Mean Platelet Volume 8.3 fl (7.4-10.4); Monocytes # 0.4 K/mm3 (0.1-1.0); Monocytes % 6.4 % (1.7-9.3); Neutrophils # 4.1 K/mm3 (1.8-7.8); Neutrophils % 62.1 % (37.0-80.0); Platelet Count 208 K/mm3 (142-424); Red Blood Count 4.43 M/mm3 (4.60-6.20); Red Cell Distribution Width 12.8 % (11.5-17.5); White Blood Count 6.6 K/mm3 (4.8-10.8)
[2020-09-12 20:55] LABS: Alanine Aminotransferase 30 U/L (12-78); Alkaline Phosphatase 91 U/L (38-126); Aspartate Amino Transferase 36 U/L (17-59); Bilirubin,Total 0.4 mg/dl (0.2-1.3); Blood Urea Nitrogen 24 mg/dl (9-20); Carbon Dioxide 26 mmol/L (22.0-30.0); Creatinine Clearance Estimated 57 mL/min (50-200); Estimated Glomerular Filt Rate 64 ml/min (>60); GFR (African American) 78 ML/MIN (>60); Lipase 56 U/L (23-300)
[2020-09-12 20:56] LABS: Albumin Level 4.5 g/dl (3.5-5.0); Albumin/Globulin Ratio 1.4 (1.1-1.8); Calcium 9.3 mg/dl (8.4-10.2); Globulin 3.2 g/dL (1.3-3.2); Glucose 139 mg/dl (74-100); Total Protein,Serum 7.7 g/dl (6.3-8.2)
[2020-09-12 21:03] LABS: Activated Partial Thrombo Time 24.7 seconds (22.8-30.6); Prothrombin Time 10.5 seconds (10.1-12.5)
[2020-09-12 21:05] LABS: INR 0.88 (0.9-1.1)
--- NOTE | 2020-09-12 21:10 | PC.NURSE ---
pt to rad at this time
--- NOTE | 2020-09-12 22:57 | PC.NURSE ---
assisted pt with urinal at this time
--- NOTE | 2020-09-13 00:59 | XR_ITS ---
PROCEDURE INFORMATION: Exam: XR Right Shoulder Exam date and time: 09/13/2020 12:59 AM Age: 80 years old Clinical indication: Injury or trauma; Fall; Blunt trauma (contusions or hematomas); Right; Injury date: 09/12/2020; Injury details: Fell off ladder aprox 10 feet; Patient HX: Fell off ladder pain RT shoulder TECHNIQUE: Imaging protocol: XR Right shoulder. Views: 2 or more views. COMPARISON: CR XR CHEST PORTABLE 09/12/2020 8:41 PM FINDINGS: Bones/joints: No acute fracture. No dislocation. Moderate AC joint osteoarthrosis with undersurface osteophytes. Mild to moderate glenohumeral joint degenerative change. Chronic rotator cuff tendinopathy suggested. Partially imaged spondylosis. Soft tissues: Aortic atherosclerosis is noted. IMPRESSION: No acute fracture or dislocation.
--- NOTE | 2020-09-13 00:59 | XR_ITS ---
PROCEDURE INFORMATION: Exam: XR Right Hand Exam date and time: 09/13/2020 12:59 AM Age: 80 years old Clinical indication: Injury or trauma; Fall; Blunt trauma (contusions or hematomas) and laceration; Right; Injury date: 09/12/2020; Injury details: Fell off ladder aprox 10 feet pain in hand and laceration middle finger RT TECHNIQUE: Imaging protocol: XR Right hand. Views: 3 or more views. COMPARISON: No relevant prior studies available. FINDINGS: Bones/joints: No acute displaced fracture. No dislocation. Corticated/chronic ossific bodies are seen near the dorsal carpus and several joints. Scattered degenerative changes, most advanced at the 2nd and 3rd DIP joints, as well as the 1st MCP joint, with suggested chronic subluxation of the 1st MCP joint. There are erosive changes of the 1st metacarpal head also noted, and there may be superimposed longstanding inflammatory arthropathy of the 1st MCP joint. Scattered subchondral cyst or small erosions involving the 2nd and 3rd MCP and PIP joints. Soft tissues: Irregularity of the distal 3rd finger suggesting laceration site. On the lateral image, there is an apparent 3 mm radiopacity, potentially a foreign body. IMPRESSION: 1. No acute fracture. 2. Suggested laceration of the distal 3rd finger, with a possible 3 mm foreign body. Request correlation with direct inspection. 3. 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
--- NOTE | 2020-09-13 00:59 | XR_ITS ---
PROCEDURE INFORMATION: Exam: XR Right Forearm Exam date and time: 09/13/2020 12:59 AM Age: 80 years old Clinical indication: Injury or trauma; Fall; Blunt trauma (contusions or hematomas); Arm, lower; Right; Injury date: 09/12/2020; Injury details: Fell off ladder aprox 10 feet pain RT forearm, hand and shoulder; Prior surgery; Surgery date: 6+ months; Surgery type: FX pinning TECHNIQUE: Imaging protocol: XR Right forearm. Views: 2 views. COMPARISON: No relevant prior studies available. FINDINGS: Bones/joints: No acute osseous fracture. Remote proximal diaphyseal fracture of the ulna with plate and screw fixation. The most distal screw is fractured, an age-indeterminate finding. Moderate degenerative change of the elbow joint. Corticated/chronic ossific bodies are seen near the olecranon process and posterior elbow joint line. Corticated ossific body also visualized near the dorsal carpal bones. Advanced degenerative changes of the thumb MCP joint with chronic-appearing subluxation. Soft tissues: Normal. IMPRESSION: 1. No acute fracture or dislocation. 2. Remote, transfixed fracture of the proximal ulna. Age-indeterminate fracture of the most distal screw.
--- NOTE | 2020-09-13 02:12 | HMH.EDTRAUMA ---
ED Disposition Clinical Impression: Fall from ladder Qualifiers: Encounter type: initial encounter Qualified Code(s): W11.XXXA - Fall on and from ladder, initial encounter Disposition: Home, Self-Care Condition on Discharge: Good Additional Instructions: Follow up with your primary care doctor next week. You will need to have your 9 nonabsorbable stitches removed. Return to the emergency department for any signs of infection as we discussed. Return to the emergency department immediately for any other new or worsening symptoms. Referrals: Israel Ugalde [Primary Care Provider] - - Critical Care Critical Care Time: No Attestation: On 09/12/20, the high probability of a clinically significant, sudden or life threatening deterioration of the following system(s) required my full and direct attention, intervention and personal management. The time I documented below is in addition to time spent performing reported procedures but includes the following listed in this critical care notation. Medical Decision Making - Moisés Inquiry Pt receiving controlled substance: No Vital Signs: 09/12/20 20:35 Temperature 98.2 F Temperature Source Oral Pulse Rate [Right] 62 Respiratory Rate 20 Blood Pressure [Right Arm] 122/68 Blood Pressure Mean [Right Arm] 86 Blood Pressure Source [Right Arm] Manual Cuff/ Auscultation 02 Sat by Pulse Oximetry 97 Oxygen Delivery Method Room Air - Lab Data Lab Results 09/12/20 20:38: WBC 6.6, RBC 4.43 L, Hgb 12.9 L, Hct 37.9 L, MCV 85.6, MCH 29.1, MCHC 34.0, RDW 12.8, Plt Count 208, MPV 8.3, Neut % (Auto) 62.1, Lymph % (Auto) 24.7, Preston % (Auto) 6.4, Eos % (Auto) 6.0, Baso % (Auto) 0.7, Neut # (Auto) 4.1, Lymph # (Auto) 1.6, Preston # (Auto) 0.4, Eos # (Auto) 0.4, Baso # (Auto) 0.1 09/12/20 20:38: PT 10.5, INR 0.88 L, APTT 24.7 09/12/20 20:38: Sodium 144, Potassium 4.0, Chloride 108 H, Carbon Dioxide 26, Anion Gap 14.0, BUN 24 H, Creatinine 1.10, Estimated Creat Clear 57, Estimated GFR 64, Est GFR ( Amer) 78, Glucose 139 H, Calcium 9.3, Total Bilirubin 0.4, AST 36, ALT 30, Alkaline Phosphatase 91, Total Protein 7.7, Albumin 4.5, Globulin 3.2, Albumin/Globulin Ratio 1.4, Lipase 56 Result diagrams: 09/12/20 20:38 09/12/20 20:38 Orders (Tests/Meds): ED MEDICATIONS Generic Name Dose Route Start Last Admin Trade Name Freq PRN Reason Stop Dose Admin Sodium Chloride 10 ml 09/12/20 21:14 09/12/20 21:15 Sodium Chloride 0.9% 10ml Syr (Rad Only) IV 10/12/20 21:13 10 ml NEEDED PRN Administration Maintain IV Site Discontinued Medications Generic Name Dose Route Start Last Admin Trade Name Freq PRN Reason Stop Dose Admin Iopamidol 100 ml 09/12/20 21:14 09/12/20 21:15 Iopamidol-370 (76%);100ml Bottle IV 09/12/20 21:15 100 ml ONCE ONE Administration Lidocaine HCl 20 ml 09/13/20 00:36 Lidocaine 1% 20ml Mdv SQ 09/13/20 00:37 ONCE ONE Sodium Chloride 40 ml 09/12/20 21:14 09/12/20 21:15 0.9 % Sodium Chloride 50 Ml Vial IV 09/12/20 21:15 40 ml ONCE ONE Administration ORDERS Category Date Time Status Urinalysis and Microscopic Stat Lab 09/12/20 20:44 Ordered Medical Decision Narrative: The patient is an 80-year-old male who reports falling 10 feet off of a ladder onto a fence and then onto the ground. Differential diagnosis includes intracranial hemorrhage, skull fracture, spinal injury, rib fractures, intra-abdominal injury. Given his mechanism and to obtain full trauma scans and labs and then reassess. On exam the patient is well-appearing with stable vital signs. He has no tenderness to palpation on exam and is moving all extremities and ambulate into the emergency department. All scans were reviewed and unremarkable. The patient's right upper extremity was x-rayed and revealed no acute fractures. There was a potential foreign body in his right third digit. The finger was blocked and the hand was cleaned. The carlos
[2020-09-13 02:24] VITALS: BP 120/76; PULSE 59; RESP 18; TEMP 36.8; O2SAT 99
== END 2020-09-13 02:25 | disposition home or self-care (01) ==
PROVIDERS: Emergency Provider Emergency Medicine; PCP Internal Medicine
DX: S41.111A Laceration without foreign body of right upper arm, initial encounter (principal); S61.212A Laceration without foreign body of right middle finger without damage to nail, initial encounter; S61.411A Laceration without foreign body of right hand, initial encounter; W11.XXXA Fall on and from ladder, initial encounter; Y92.019 Unspecified place in single-family (private) house as the place of occurrence of the external cause; T07.XXXA Unspecified multiple injuries, initial encounter; E78.5 Hyperlipidemia, unspecified; I10 Essential (primary) hypertension; D68.9 Coagulation defect, unspecified
CPT/HCPCS: 12001; 70450; 71045; 71275; 72125; 72128; 72131; 72170; 73030; 73090; 73130; 74177; 80053; 83690; 85025; 85610; 85730; 99282; Q9967

== ENCOUNTER → 2020-09-16 15:47 | Outpatient (CLI) | payer MEDICARE, SELFPAY ==
--- NOTE | 2020-09-16 15:56 | XR_ITS ---
PROCEDURE: XR KNEE LT 3V CLINICAL INDICATION: S/P FALL, LT MEDIAL KNEE PAIN COMPARISON: CR [id number] KNEE-3 VIEWS-LT from 08/13/2013 CR [id number] KNEE-4 OR 5 VIEWS-RT from 02/18/2015 CR [id number] KNEE-4 OR 5 VIEWS-LT from 02/18/2015 CR XR KNEE RT 3V from 01/30/2020 FINDINGS: No fracture or dislocation. No lytic or blastic change. There is normal mineralization. Status post total knee arthroplasty. Good alignment. No evidence of orthopedic complication. Other findings:There is a small metallic density along the medial aspect of the distal thigh in the subcutaneous region consistent with a small foreign body at 3 mm. Unchanged. IMPRESSION: No acute findings. Dictated by: Zak Baez MD 09/16/2020 17:10 Zak Baez MD in [place] 09/16/2020 17:10
== END ==
PROVIDERS: PCP Internal Medicine; Visit Provider Internal Medicine
DX: M25.562 Pain in left knee (principal); W11.XXXA Fall on and from ladder, initial encounter
CPT/HCPCS: 73562

== ENCOUNTER 2020-10-24 20:55 | Emergency (ER) | payer MEDICARE, SELFPAY ==
[2020-10-24 20:58] VITALS: RESP 16; TEMP 36.5; O2SAT 99; BMI 21.9
[2020-10-24 21:11] VITALS: BP 130/59; PULSE 66; O2SAT 99
--- NOTE | 2020-10-24 21:21 | HMH.EDGENADL ---
ED Disposition Clinical Impression: Toe pain Qualifiers: Laterality: left Qualified Code(s): M79.675 - Pain in left toe(s) Disposition: Home, Self-Care Condition on Discharge: Good Additional Instructions: Clindamycin as prescribed. Take ibuprofen 600 mg 4 times a day. Rest and elevate your foot. Continue wearing your orthopedic boot. See your primary care doctor on Tuesday for recheck. Return the emergency department if severe pain, increasing redness, swelling, or fever. Prescriptions: clindamycin HCL [Clindamycin HCl] 300 mg PO QID #40 cap Transmission Status: Received by [facility] Referrals: Israel Ugalde [Primary Care Provider] - - Critical Care Critical Care Time: No Attestation: On 10/24/20, the high probability of a clinically significant, sudden or life threatening deterioration of the following system(s) required my full and direct attention, intervention and personal management. The time I documented below is in addition to time spent performing reported procedures but includes the following listed in this critical care notation. Medical Decision Making - Moisés Inquiry Pt receiving controlled substance: No Vital Signs: 10/24/20 20:58 10/24/20 21:11 10/24/20 22:06 Temperature 97.7 F 98.2 F Temperature Source Oral Oral Pulse Rate 66 65 Respiratory Rate 16 20 Blood Pressure 130/59 L 109/44 L 02 Sat by Pulse Oximetry 99 99 Oxygen Delivery Method Room Air Room Air Orders (Tests/Meds): ED MEDICATIONS Generic Name Dose Route Start Last Admin Trade Name Freq PRN Reason Stop Dose Admin Clindamycin HCl 300 mg 10/24/20 22:07 Clindamycin 150mg Capsule PO 10/24/20 22:08 ONCE ONE Discontinued Medications Generic Name Dose Route Start Last Admin Trade Name Freq PRN Reason Stop Dose Admin Ibuprofen 600 mg 10/24/20 22:07 10/24/20 22:14 Ibuprofen 600 Mg Tablet PO 10/24/20 22:08 600 mg ONCE ONE Administration - Radiology Data #1 Image(s): Foot/Toes Image Reviewed: Yes I reviewed the patient's radiology image, Yes I have reviewed radiologist's interpretation PROCEDURE INFORMATION: Exam: XR Left Foot Exam date and time: 10/24/2020 9:32 PM Age: 80 years old Clinical indication: Pain; Foot; Left; Prior surgery; Surgery date: 6+ months; Surgery type: Staph in great toe; Additional info: Pain great toe area PT states he stepped on a nail. No puncture wound seen toes are red TECHNIQUE: Imaging protocol: XR Left foot. Views: 3 or more views. COMPARISON: FOOTLTWW MR foot LT wo/w con 11/02/2017 3:42 PM FINDINGS: Bones/joints: Chronic appearing degenerative changes of the midfoot and ankle. 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 Calcaneal spur. No fracture. No dislocation. Soft tissues: Normal. Vasculature: Vascular calcifications. IMPRESSION: Chronic changes without definite acute osseous abnormality. If there is concern for early osteomyelitis, MRI would have greater sensitivity. Medical Decision Narrative: Reexamined. The erythema on the dorsum of his foot has not resolved. I therefore feel we should treat for infection as well as starting anti-inflammatories. The patient also now tells me that he thinks he might have been mistaken and there may have been no blood on his sock after he stepped on the nail. General Adult HPI - General Stated complaint: stepped on nail approx 2 days ago Time Seen by Provider: 10/24/20 21:21 - History of Present Illness HPI narrative: Complains of pain in his left foot for 2 days. Indicates the pain is in his great toe and radiates up to the region of the distal first metatarsal. He says that he knows that he stepped on a nail a couple of days ago that went into a shoe. However, he cannot find any puncture wound. He says there was blood on his sock. He is afraid of sta
--- NOTE | 2020-10-24 21:32 | XR_ITS ---
PROCEDURE INFORMATION: Exam: XR Left Foot Exam date and time: 10/24/2020 9:32 PM Age: 80 years old Clinical indication: Pain; Foot; Left; Prior surgery; Surgery date: 6+ months; Surgery type: Staph in great toe; Additional info: Pain great toe area PT states he stepped on a nail. No puncture wound seen toes are red TECHNIQUE: Imaging protocol: XR Left foot. Views: 3 or more views. COMPARISON: FOOTLTWW MR foot LT wo/w con 11/02/2017 3:42 PM FINDINGS: Bones/joints: Chronic appearing degenerative changes of the midfoot and ankle. 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 Calcaneal spur. No fracture. No dislocation. Soft tissues: Normal. Vasculature: Vascular calcifications. IMPRESSION: Chronic changes without definite acute osseous abnormality. If there is concern for early osteomyelitis, MRI would have greater sensitivity.
[2020-10-24 22:06] VITALS: BP 109/44; PULSE 65; RESP 20; TEMP 36.8; O2SAT 99
== END 2020-10-24 22:38 | disposition home or self-care (01) ==
PROVIDERS: Emergency Provider Emergency Medicine; PCP Internal Medicine
DX: S91.132A Puncture wound without foreign body of left great toe without damage to nail, initial encounter (principal); W22.8XXA Striking against or struck by other objects, initial encounter; E78.5 Hyperlipidemia, unspecified; I10 Essential (primary) hypertension; Z79.899 Other long term (current) drug therapy
CPT/HCPCS: 73630; 99282

== ENCOUNTER → 2021-02-07 17:32 | Outpatient (CLI) | payer MEDICARE, SELFPAY | PROVIDERS: PCP Internal Medicine; Visit Provider Nurse Practitioner Family | DX: Z20.822 Contact with and (suspected) exposure to COVID-19 (principal) | CPT/HCPCS: C9803; U0003; U0005 ==

== ENCOUNTER → 2021-07-20 15:51 | Outpatient (CLI) | payer MEDICARE, SELFPAY ==
--- NOTE | 2021-07-20 15:58 | XR_ITS ---
FINAL REPORT CLINICAL HISTORY: FALL ON 07/15/21, Rt sided neck pain FINDINGS: CERVICAL SPINE Five views were obtained. There is no acute fracture. There is mild anterolisthesis of C2 on C3. There is mild retrolisthesis of C4 on C5. There are moderate degenerative changes with multilevel disc osteophyte complexes. There is multilevel, mild neural foraminal narrowing. IMPRESSION: No acute process. Moderate degenerative disc disease. Reviewed, Interpreted and Dictated by Harpal Alvares III, MD Transcribed by Carlos Gomez Authenticated and [facility]
--- NOTE | 2021-07-20 15:58 | XR_ITS ---
FINAL REPORT CLINICAL HISTORY: CLAVICAL PAIN FROM A FALL 07/15/21 COMPARISON: Shoulder x-ray dated September 13, 2020 FINDINGS: 2 views of the right clavicle were obtained. There is no acute fracture. There are mild degenerative changes of the acromioclavicular and the glenohumeral joints. There is no soft tissue abnormality. IMPRESSION: No acute process. Reviewed, Interpreted and Dictated by Harpal Alvares III, MD Transcribed by Carlos Gomez Authenticated and [facility]
== END ==
LOC: RAD 15:53
PROVIDERS: PCP Internal Medicine; Visit Provider Internal Medicine
DX: M54.2 Cervicalgia (principal); M25.511 Pain in right shoulder
CPT/HCPCS: 72050; 73000

== ENCOUNTER → 2021-07-21 12:56 | Outpatient (CLI) | payer MEDICARE, SELFPAY ==
--- NOTE | 2021-07-21 12:59 | CT_ITS ---
FINAL REPORT CLINICAL HISTORY: CONCUSSION W/O LOSS OF CONSCIOUSNESS FALL X1 WEEK AGO PAIN ABOVE RIGHT EYE COMPARISON: 09/12/2020 FINDINGS: Axial images of the head were obtained without contrast. Coronal reformatted images were also obtained.This study was performed with techniques to keep radiation doses as low as reasonably achievable (ALARA). Individualized dose reduction techniques using automated exposure control or adjustment of mA and/or kV according to the patient's size were employed. There is no evidence of intracranial hemorrhage or mass. The ventricular size is within normal limits. There is no evidence of shift of the midline structures. No abnormal extra axial fluid collection is identified. No skull abnormality is seen on the bone window images. IMPRESSION: No acute intracranial abnormality. Reviewed, Interpreted and Dictated by Harpal Alvares III, MD Transcribed by Carlos Gomez Authenticated and [facility]
== END ==
LOC: RAD 12:56
PROVIDERS: PCP Internal Medicine; Visit Provider Internal Medicine
DX: S06.0X0A Concussion without loss of consciousness, initial encounter (principal)
CPT/HCPCS: 70450

== ENCOUNTER 2021-08-20 19:35 | Emergency (ER) | payer MEDICARE, SELFPAY ==
[2021-08-20 19:36] VITALS: BP 140/78; PULSE 62; RESP 18; TEMP 36.6; O2SAT 98; BMI 23.6
--- NOTE | 2021-08-20 19:39 | HMH.EDEYEP ---
ED Disposition Clinical Impression: Corneal abrasion Subconjunctival hemorrhage Qualifiers: Laterality: right Qualified Code(s): H11.31 - Conjunctival hemorrhage, right eye Disposition: Home, Self-Care Condition on Discharge: Good Instructions: DI for Subconjunctival Hemorrhage, Corneal Abrasion, Polymyxin B and Trimethoprim Ophthalmic Referrals: Israel Ugalde MD [Primary Care Provider] - Time of Disposition: 19:50 - Critical Care Critical Care Time: No Attestation: On , the high probability of a clinically significant, sudden or life threatening deterioration of the following system(s) required my full and direct attention, intervention and personal management. The time I documented below is in addition to time spent performing reported procedures but includes the following listed in this critical care notation. Medical Decision Making - Medical Records Medical records reviewed: Yes: I reviewed the patient's medical records. - Moisés Inquiry Pt receiving controlled substance: No Eye Problem HPI - General Stated complaint: AO08/20/21@1800 right inj Time Seen by Provider: 08/20/21 19:39 Mode of Arrival: Ambulatory Source of Information: Patient - History of Present Illness HPI Narrative: 81-year-old male, presents with injury to the right eye earlier today, states a stick hit him in the eye, it happened this morning, and he states his noticed that there was redness which is why he presented to the emergency department. He denies any pain, change in visual acuity, blurry or double vision. chief complaint: eye pain - Related Data Home Medications Medication Instructions Recorded Confirmed Bisoprolol/Hydrochlorothiazide 5 mg PO DAILY 08/02/17 06/23/20 [Bisoprolol-Hctz 5-6.25 mg Tab] Losartan Potassium 100 mg PO DAILY 08/02/17 06/23/20 pravastatin 40 mg tablet 40 mg PO DAILY 90 Days tab 10/24/17 06/23/20 Glucosamine Sulfate Dipot Chlr 1,000 mg PO DAILY 08/28/18 06/23/20 [Glucosamine] Ubidecarenone [Co Q-10] 10 mg PO DAILY 08/28/18 06/23/20 Aspirin [Aspirin 81mg EC Tab] 81 mg PO DAILY 06/09/20 06/23/20 Clopidogrel Bisulfate [Plavix 75mg 75 mg PO DAILY 06/09/20 06/23/20 Tab] Previous Rx's Medication Instructions Recorded clindamycin HCL [Clindamycin HCl] 300 mg PO QID #40 cap 10/24/20 Allergies Allergy/AdvReac Type Severity Reaction Status Date / Time Penicillins Allergy Verified 06/23/20 14:10 [facility] History - Hepatitis A Screen Attestation statement:: This patient has been screened for Hepatitis A risk factors. Medical History: Reports:: Hyperlipidemia, Hypertension Denies:: Cancer, Chronic Obstructive Pulmonary Disease (COPD), Diabetes Mellitus Type 1, Diabetes Mellitus Type 2, Internal Pacemaker, Lung Disease, MRSA, Seizures Other Medical History: Reports: Arthritis Comment: Pt. reported Staph in the Right Knee (Complication after surgery) Laterality Cases: Left: Carpal Tunnel Release Other Surgeries: Yes: Colonoscopy, Other. No: Pacemaker Amputation: No Fractures: Yes Comment: right arm, left kneecap, left wrist fracture - Social History Smoking Status: Never smoker Alcohol Intake: never Alcohol Intake Frequency:: other Substance Use Type: denies use Occupational Status: retired Housing: house Household Members: spouse Family Hx:: Cancer, Hypertension, Heart Attack, Stroke ROS Obtained: Yes All systems reviewed & no additional complaints - Constitutional Constitutional: Reports system reviewed and no additional complaints, except as docu - Eyes Comments: Subconjunctival hemorrhage - ENT Ears, Nose, Mouth, and Throat: Reports system reviewed and no additional complaints, except as docu - Cardiovascular Cardiovascular: Reports system reviewed and no additional complaints, except as docu - Respiratory Respiratory: Reports system reviewed and no additional complaints, except as docu - Gastrointestinal Gastrointestingal: Reports:
[2021-08-20 20:18] VITALS: BP 138/79; PULSE 60; RESP 17; TEMP 36.6; O2SAT 99
== END 2021-08-20 20:30 | disposition home or self-care (01) ==
PROVIDERS: Emergency Provider Emergency Medicine; PCP Internal Medicine
DX: S05.01XA Injury of conjunctiva and corneal abrasion without foreign body, right eye, initial encounter (principal); W22.8XXA Striking against or struck by other objects, initial encounter; H11.31 Conjunctival hemorrhage, right eye
CPT/HCPCS: 99282

== ENCOUNTER 2021-09-26 19:02 | Emergency (ER) | payer MEDICARE, SELFPAY ==
[2021-09-26 19:50] VITALS: BP 116/73; PULSE 79; RESP 19; TEMP 36.8; O2SAT 98; BMI 23.3
--- NOTE | 2021-09-26 20:19 | HMH.EDUTC ---
[facility] Disposition Clinical Impression: Dizziness, Numbness and tingling of both lower extremities Disposition: Home, Self-Care Condition on Discharge: Good Instructions: DI for Numbness/Tingling Additional Instructions: follow up with pcp on tuesday if symptoms worsen or no improvement return or be seen in ed Referrals: Israel Ugalde MD [Primary Care Provider] - Time of Disposition: 20:47 Medical Decision Making - Moisés Inquiry Pt receiving controlled substance: No Vital Signs: 09/26/21 19:50 Temperature 98.2 F Temperature Source Oral Pulse Rate [Right Brachial] 79 Respiratory Rate 19 Blood Pressure [Right Arm] 116/73 Blood Pressure Mean [Right Arm] 87 Blood Pressure Source [Right Arm] Automatic Cuff Blood Pressure Position [Right Arm] Sitting 02 Sat by Pulse Oximetry 98 Oxygen Delivery Method Room Air Medical Decision Narrative: discussed with pt if he should be seen in ed and pt states he does not need that. offered labs and ekg and he was ok with ekg only. states he seen his die fitter 3 weeks ago and everything fine. pt states he does not need to be seen in ed, risk discussed [facility] HPI - General Chief complaint: Urgent [facility] Stated complaint: Right leg and foot going numb,light headed Time Seen by Provider: 09/26/21 20:19 Mode of Arrival: Ambulatory Source of Information: Patient Limitations: No Limitations Description of Symptoms (Recalled from Triage Doc. by RN): PATIENT C/O NUMBNESS TO RIGHT LEG AND FOOT THAT BEGAN THIS MORNING HEENT Symptoms (Recalled from RN notes): No Resp Symptoms (Recalled from RN notes): No Skin Symptoms (Recalled from RN notes): No MS Symptoms (Recalled from RN notes): Yes Functional Status (Recalled from RN notes): WNL - History of Present Illness Provider Complaint: 81 yr old male presents for rt leg and foot numbness. to states it has been going on for over 4 yrs in both legs(since knee surgery) but yesterday the numbess got worse. pt states he has pressure in his rt hip joint. pt states he was working outside today cutting trees when he became lightheaded x3. pt states each time he went in the house for 30 mins and symptoms improved. hx of a heat stroke - Related Data Home Medications Medication Instructions Recorded Confirmed Bisoprolol/Hydrochlorothiazide 5 mg PO DAILY 08/02/17 06/23/20 [Bisoprolol-Hctz 5-6.25 mg Tab] Losartan Potassium 100 mg PO DAILY 08/02/17 06/23/20 pravastatin 40 mg tablet 40 mg PO DAILY 90 Days tab 10/24/17 06/23/20 Glucosamine Sulfate Dipot Chlr 1,000 mg PO DAILY 08/28/18 06/23/20 [Glucosamine] Ubidecarenone [Co Q-10] 10 mg PO DAILY 08/28/18 06/23/20 Aspirin [Aspirin 81mg EC Tab] 81 mg PO DAILY 06/09/20 06/23/20 Clopidogrel Bisulfate [Plavix 75mg 75 mg PO DAILY 06/09/20 06/23/20 Tab] Previous Rx's Medication Instructions Recorded clindamycin HCL [Clindamycin HCl] 300 mg PO QID #40 cap 10/24/20 Allergies Allergy/AdvReac Type Severity Reaction Status Date / Time Penicillins Allergy Verified 06/23/20 14:10 - Worker's Comp Is this a Worker's Comp case?: No [facility] History - Hepatitis A Screen Attestation statement:: This patient has been screened for Hepatitis A risk factors. I have reviewed the patient's past medical history: Yes Medical History: Reports:: Hyperlipidemia, Hypertension Denies:: Cancer, Chronic Obstructive Pulmonary Disease (COPD), Diabetes Mellitus Type 1, Diabetes Mellitus Type 2, Internal Pacemaker, Lung Disease, MRSA, Seizures Other Medical History: Reports: Arthritis Comment: Pt. reported Staph in the Right Knee (Complication after surgery) Laterality Cases: Left: Carpal Tunnel Release Other Surgeries: Yes: Colonoscopy, Other. No: Pacemaker Amputation: No Fractures: Yes Comment: right arm, left kneecap, left wrist fracture - Social History Smoking Status: Never smoker Alcohol Intake: never Alcohol Intake Frequency:: other Substance Use Type: denies use
--- NOTE | 2021-09-26 20:37 | ECG_ITS ---
APPROVED REPORT Exam: Resting ECG HR:58 bpm ECG Measurements Heart Rate 58 AXES DC 172 P 40 QRSd 79 QRS 30 QT 429 T 53 QTc 427 Conclusion SINUS BRADYCARDIA Old st/tw changes UNCONFIRMED REPORT Electronically signed by : Harshal Haley MD 09/29/2021 21:31:21
[2021-09-26 20:51] VITALS: BP 116/73; PULSE 79; RESP 19; TEMP 36.8; O2SAT 98
== END 2021-09-26 20:52 | disposition home or self-care (01) ==
PROVIDERS: Emergency Provider Nurse Practitioner Family; PCP Internal Medicine
DX: R42 Dizziness and giddiness (principal); R20.0 Anesthesia of skin; E78.5 Hyperlipidemia, unspecified; I10 Essential (primary) hypertension
CPT/HCPCS: 93005; 99212; G0463

== ENCOUNTER → 2021-09-28 15:48 | Outpatient (CLI) | payer MEDICARE, SELFPAY ==
--- NOTE | 2021-09-28 16:00 | CT_ITS ---
FINAL REPORT TECHNIQUE: Axial images were performed through the brain.This study was performed with techniques to keep radiation doses as low as reasonably achievable, (ALARA). Individualized dose reduction techniques using automated exposure control or adjustment of mA and/or kV according to the patient''s size were employed. CLINICAL HISTORY: RULE OUT STROKE COMPARISON: 07/21/21 FINDINGS: There is mild atrophy. The ventricles are normal in size for the degree of atrophy. There is no extra-axial fluid or midline shift. There is no evidence of acute hemorrhage or mass. IMPRESSION: Atrophy. No acute intracranial process. Reviewed, Interpreted and Dictated by Frederick Hernandez MD Transcribed by Stephany Gonzalez Authenticated and [facility]
== END ==
LOC: RAD 15:53
PROVIDERS: PCP Internal Medicine; Visit Provider Internal Medicine
DX: R42 Dizziness and giddiness (principal)
CPT/HCPCS: 70450

== ENCOUNTER → 2021-10-06 12:24 | Outpatient (CLI) | payer MEDICARE, SELFPAY ==
[2021-10-06 15:27] LABS: Basophils % 0.6 % (0.1-2.0); Eosinophils # 0.2 K/mm3 (0.0-0.4); Hematocrit 37.7 % (42.0-52.0); Hemoglobin 12.3 g/dL (14.1-18.0); Lymphocytes % 27.4 % (10-50); Mean Corpuscular HGB Conc 32.6 g/dL (31.8-35.4); Mean Corpuscular Volume 91.8 fl (80-94); Mean Platelet Volume 9.3 fl (7.4-10.4); Monocytes # 0.3 K/mm3 (0.1-1.0); Monocytes % 8.5 % (1.7-9.3); Neutrophils # 2.1 K/mm3 (1.8-7.8); Neutrophils % 58.5 % (37.0-80.0); Platelet Count 190 K/mm3 (142-424); Red Blood Count 4.11 M/mm3 (4.60-6.20); Red Cell Distribution Width 12.9 % (11.5-17.5); White Blood Count 3.5 K/mm3 (4.8-10.8)
[2021-10-06 16:13] LABS: Alanine Aminotransferase 23 U/L (12-78); Albumin Level 3.7 g/dl (3.5-5.0); Albumin/Globulin Ratio 1.4 (1.1-1.8); Alkaline Phosphatase 80 U/L (38-126); Aspartate Amino Transferase 25 U/L (17-59); Bilirubin,Total 0.2 mg/dl (0.2-1.3); Blood Urea Nitrogen 21 mg/dl (9-20); Calcium 8.7 mg/dl (8.4-10.2); Carbon Dioxide 25 mmol/L (22.0-30.0); Chloride 110 mmol/L (98-107); Chol/HDL Ratio 3.1 (1-3.5); Cholesterol 101 mg/dl (140-200); Estimated Glomerular Filt Rate 72 ml/min (>60); GFR (African American) 87 ML/MIN (>60); Globulin 2.6 g/dL (1.3-3.2); Glucose 104 mg/dl (74-100); HDL Cholesterol 33 mg/dl (40-60); Sodium 143 mmol/L (136-145); Total Protein,Serum 6.3 g/dl (6.3-8.2); Triglycerides 116 mg/dl (30-150); VLDL Cholesterol 23 mg/dL (0-40)
[2021-10-06 16:41] LABS: Prostate Specific Ag Screen 1.2 ng/ml (0.0-4.0)
[2021-10-06 17:00] LABS: Vitamin B12 406 pg/mL (239-931)
[2021-10-13 15:47] LABS: Direct LDL Cholesterol 43 mg/dL (100-129)
== END ==
PROVIDERS: PCP Internal Medicine; Visit Provider Internal Medicine
DX: I25.10 Atherosclerotic heart disease of native coronary artery without angina pectoris (principal); I10 Essential (primary) hypertension; E78.5 Hyperlipidemia, unspecified; R73.01 Impaired fasting glucose; N40.1 Benign prostatic hyperplasia with lower urinary tract symptoms; Z12.5 Encounter for screening for malignant neoplasm of prostate
CPT/HCPCS: 80053; 80061; 82607; 85025; G0103

== ENCOUNTER → 2021-10-19 17:09 | Outpatient (CLI) | payer MEDICARE, SELFPAY ==
[2021-10-19 20:48] LABS: Reticulocyte % (Auto) 1.5 % (0.9-3.2)
[2021-10-19 21:18] LABS: Iron 103 ug/dL (49-181)
[2021-10-19 21:36] LABS: Total Iron Binding Capacity 279 ug/dL (261-462)
== END ==
PROVIDERS: PCP Internal Medicine; Visit Provider Internal Medicine
DX: D64.9 Anemia, unspecified (principal)
CPT/HCPCS: 83540; 83550; 85044

== ENCOUNTER → 2021-12-07 09:51 | Outpatient (CLI) | payer MEDICARE, SELFPAY | PROVIDERS: PCP Internal Medicine; Visit Provider Internal Medicine | DX: U07.1 COVID-19 (principal) | CPT/HCPCS: 87275; 87276; C9803; U0003; U0005 ==

== ENCOUNTER 2021-12-18 10:53 | Emergency (ER) | payer MEDICARE, SELFPAY ==
--- NOTE | 2021-12-18 10:48 | ECG_ITS ---
APPROVED REPORT Exam: Resting ECG HR:85 bpm ECG Measurements Heart Rate 85 AXES QRSd 88 QRS 58 QT 361 T 63 QTc 403 Conclusion ATRIAL FIBRILLATION SEPTAL MYOCARDIAL INFARCTION , OF INDETERMINATE AGE [40+ ms Q WAVE IN V1/V2] ABNORMAL ECG UNCONFIRMED REPORT Electronically signed by : Harshal Haley MD 12/18/2021 19:59:08
[2021-12-18 10:54] VITALS: BP 140/98; PULSE 94; RESP 18; TEMP 36.3; O2SAT 99; BMI 23.4
--- NOTE | 2021-12-18 11:20 | CT_ITS ---
FINAL REPORT TECHNIQUE: Axial CT images were performed through the head. Coronal reformatted images were submitted. This study was performed with techniques to keep radiation doses as low as reasonably achievable (ALARA). Individualized dose reduction techniques using automated exposure control or adjustment of mA and/or kV according to the patient's size were employed. CLINICAL HISTORY: concern for cva, near syncope COMPARISON: 09/28/2021 FINDINGS: There is mild atrophy. The ventricles are normal in size. There is no evidence of hemorrhage. There is no mass or edema identified. There is no abnormal extra-axial fluid seen. The sinuses are well aerated. IMPRESSION: No acute intracranial process. Mild atrophy Reviewed, Interpreted and Dictated by Frederick Hernandez MD Transcribed by Elicia Nance Authenticated and [facility]
--- NOTE | 2021-12-18 11:20 | XR_ITS ---
FINAL REPORT CLINICAL HISTORY: cough FINDINGS: SINGLE-VIEW CHEST The heart size is normal. The mediastinum is normal. The lungs are clear. There is no pneumothorax. IMPRESSION: No acute cardiopulmonary process. Reviewed, Interpreted and Dictated by Frederick Hernandez MD Transcribed by Christina Sloan Authenticated and [facility]
[2021-12-18 11:29] LABS: Basophils % 0.5 % (0.1-2.0); Eosinophils % 0.4 % (0.1-12.0); Hematocrit 41.1 % (42.0-52.0); Hemoglobin 13.3 g/dL (14.1-18.0); Lymphocytes # 2.3 K/mm3 (0.7-4.5); Lymphocytes % 30.7 % (10-50); Mean Corpuscular HGB Conc 32.3 g/dL (31.8-35.4); Mean Corpuscular Hemoglobin 28.9 pg (27.0-31.2); Mean Corpuscular Volume 89.5 fl (80-94); Mean Platelet Volume 8.4 fl (7.4-10.4); Monocytes # 0.6 K/mm3 (0.1-1.0); Neutrophils # 4.6 K/mm3 (1.8-7.8); Neutrophils % 60.4 % (37.0-80.0); Platelet Count 372 K/mm3 (142-424); Red Blood Count 4.59 M/mm3 (4.60-6.20); White Blood Count 7.5 K/mm3 (4.8-10.8)
[2021-12-18 11:31] LABS: Chloride 106 mmol/L (98-107); Sodium 144 mmol/L (136-145)
[2021-12-18 11:32] LABS: Potassium 3.6 mmoL/L (3.5-5.1)
[2021-12-18 11:34] LABS: Alanine Aminotransferase 41 U/L (12-78); Alkaline Phosphatase 73 U/L (38-126); Aspartate Amino Transferase 37 U/L (17-59); Bilirubin,Total 0.5 mg/dl (0.2-1.3); Blood Urea Nitrogen 27 mg/dl (9-20); Creatinine Clearance Estimated 61 mL/min (50-200); Estimated Glomerular Filt Rate 72 ml/min (>60); GFR (African American) 87 ML/MIN (>60)
[2021-12-18 11:35] LABS: Albumin Level 4.5 g/dl (3.5-5.0); Albumin/Globulin Ratio 1.5 (1.1-1.8); Anion Gap 19.6 mEq/L (5-15); Carbon Dioxide 22 mmol/L (22.0-30.0); Globulin 3.1 g/dL (1.3-3.2); Glucose 96 mg/dl (74-100); Magnesium 1.6 mg/dl (1.6-2.3); Total Protein,Serum 7.6 g/dl (6.3-8.2)
[2021-12-18 11:46] LABS: Troponin I < 0.01 ng/ml (0.00-0.034)
[2021-12-18 12:00] VITALS: BP 117/63; PULSE 84; RESP 22; O2SAT 98
[2021-12-18 12:30] VITALS: BP 108/57; PULSE 57; RESP 20; O2SAT 99
--- NOTE | 2021-12-18 12:43 | PC.NURSE ---
updated pt and family about poc at this time.
--- NOTE | 2021-12-18 12:53 | PC.NURSE ---
contacting rad to check on status of CT report
[2021-12-18 13:01] VITALS: BP 114/63; PULSE 55; RESP 20; O2SAT 100
--- NOTE | 2021-12-18 13:02 | HMH.EDDIZZ ---
Discharge Plan Disposition Patient Disposition: Home, Self-Care Condition: Good Chief Complaint: Dizziness Prescriptions Prescriptions: No Action pravastatin 40 mg tablet 40 mg PO DAILY 90 Days coenzyme Q10 10 MG capsule 10 mg PO DAILY glucosamine sulfate 2KCl 1,000 MG tablet 1,000 mg PO DAILY bisoprolol-hydrochlorothiazide 1 EACH tablet 5 mg PO DAILY losartan 100 MG tablet 100 mg PO DAILY clopidogrel 75 MG tablet 75 mg PO DAILY aspirin 81 MG tablet,delayed release (DR/EC) 81 mg PO DAILY clindamycin HCl 300 MG capsule 300 mg PO QID Qty: 40 0RF Referrals Follow up/Referrals: Provider,Referral, MD [Primary Care Provider] - See instructions Clinical Impressions Clinical Impression: Dizziness Instructions Patient Instructions: DI for Dizziness-Nonvertigo Discharge ED Provider: Lamont Theodore HPI General Chief Complaint: Dizziness Stated Complaint: chest pain Time Seen by Provider: 12/18/21 11:00 Mode of Arrival: Ambulatory Source of Information: Patient Limitations: No Limitations Description of Symptoms (Recalled from ER Triage Doc. by RN): c/o dizziness and leg pain. PT states that he woke with pain down his left leg and then when he stood up he got dizzy History of Present Illness HPI Narrative: Patient is a 81-year-old male with a past medical history of coronary artery disease who presents with concern for dizziness and leg pain. He says that he had COVID 10 days ago and has been recovering from that. He says he woke up today with left leg pain. He locates it in his left thigh. He did not go all the way down to his foot. He says that that happened a couple of times and it would randomly resolve. He says that he then stood up a few times and started to get a little dizzy. He says that he would have to sit down and relax and his symptoms would go away but it happened worse so he wanted to come in for evaluation. He denies any shortness of breath or chest pain during these episodes. Denies any numbness or tingling into his extremities. He says that his leg feels better and that his dizziness is resolved if he lies still. He says that it mainly happens when he stands up. Related Data Home Medications Medication Instructions Recorded Confirmed bisoprolol 5 5 mg PO DAILY High cholesterol 08/02/17 06/23/20 mg-hydrochlorothiazide 6.25 mg tablet losartan 100 mg tablet 100 mg PO DAILY HTN 08/02/17 06/23/20 pravastatin 40 mg tablet 40 mg PO DAILY Cholesterol 90 days 10/24/17 06/23/20 coenzyme Q10 10 mg capsule 10 mg PO DAILY Supplement 08/28/18 06/23/20 glucosamine sulfate 2KCl 1,000 mg 1,000 mg PO DAILY Supplement 08/28/18 06/23/20 tablet aspirin 81 mg tablet,delayed 81 mg PO DAILY Blood thinner 06/09/20 06/23/20 release clopidogrel 75 mg tablet 75 mg PO DAILY Blood thinner 06/09/20 06/23/20 Previous Rx's Medication Instructions Recorded clindamycin HCl 300 mg capsule 300 mg PO QID #40 caps 10/24/20 Allergies Allergy/AdvReac Type Severity Reaction Status Date / Time Penicillins Allergy Verified 06/23/20 14:10 PFSH PFS Social History Smoking Status: Never smoker alcohol intake: never substance use type: denies use current occupational status: retired Travel in the last 8 weeks: None household members: spouse housing: house current occupational exposures/hazards: No caffeine: Yes ROS Obtained: Yes All systems reviewed & no additional complaints except as documented A 14 point review of system was obtained and otherwise negative except per HPI Physical Exam General General appearance: alert and in no apparent distress Head Head exam: atraumatic, normocephalic and normal inspection Eye Eye exam: Present normal appearance, PERRL and EOMI ENT ENT exam: Present normal exam, normal oropharynx, mucous membranes moist, TM's normal bilaterally and normal external ear exam Neck Neck exam:
--- NOTE | 2021-12-18 13:06 | PC.NURSE ---
pt ambulated to the bathroom and back with no assistance and states he doesn't feel dizzy.
[2021-12-18 13:14] VITALS: BP 114/63; PULSE 55; RESP 20; TEMP 36.3; O2SAT 100
== END 2021-12-18 13:15 | disposition home or self-care (01) ==
PROVIDERS: Emergency Provider Student in an Organized Health Care Education/Training Program
DX: R42 Dizziness and giddiness (principal); M79.605 Pain in left leg
CPT/HCPCS: 70450; 71045; 80053; 83735; 84484; 85025; 93005; 96365; 99284

== ENCOUNTER → 2022-10-05 11:29 | Outpatient (CLI) | payer MEDICARE, SELFPAY ==
--- NOTE | 2022-10-05 | CA_ITS ---
APPROVED REPORT Exam: Pharmacologic Technologist: Anabel Leal, Ht: 6 ft 0 in Wt: 174 lbs BSA: 2.01 m2 HR: 52 bpm BP: 159/76 mmHg Rhythm: NSR Medical History Medications: Aspirin,,,,, Losartan,,,,, CloPIdogrel,,,,, BisOPROLOL,,,,, RoSUVASTATIN,,,,, Stress Test Details Test: Marcus HR Resting HR: 52 bpm Max Heart Rate (APMHR): 137 bpm Max HR Achieved: 124 bpm Target HR (85% APMHR): 116 bpm % of APMHR: 91 Recovery HR: 64 bpm HR response to stress: Normal HR response to stress BP Resting BP: 176.0/76.0 mmHg Max BP: 180.0/61.0 mmHg Recovery BP: 136.0/62.0 mmHg BP response to stress: Normal blood pressure response to stress. ECG Resting ECG: Sinus bradycardia, no significant ST changes Stress EC mm horizontal ST depression Arrhythmia: PACs, PVCs Recovery ECG: Return to baseline within 3 minutes of recovery Recovery Arrhythmia: PACs, PVCs Clinical Exercise duration: 07:56 min Highest Stage Achieved: III Exercise capacity: 10.1 METs Overall Exercise Capacity for Age: Good Stress ECG Conclusion The patient was able to exercise for a total of 7 minutes, 56 seconds. He achieved a total of 10.1 METs. He has good exercise capacity compared to age and sex matched peers. He has normal HR and BP response to exercise. Max HR: 124 % of PM: 91% Max BP: 180/61 METs: 10.1 Test stopped due to: Dyspnea Symptoms: Dyspnea Arrhythmias/Ectopy: PACs, PVCs ST-T Changes: 1mm horizontal ST depression Conclusion: Abnormal EKG response to exercise. Good exercise capacity. Myoview images are reported separately. Test Summary REST . . . . . . . Sitting REST 06:40 0.0 0.0 52 . 176/ 76 . . Stage 1 01:00 10.0 1.7 71 . . . . Stage 1 02:00 10.0 1.7 90 . . . . Stage 1 03:00 10.0 1.7 88 . 142/ 68 . . Stage 2 01:00 12.0 2.5 100 . . . . Stage 2 02:00 12.0 2.5 106 . . . . Stage 2 03:00 12.0 2.5 103 . 160/ 78 . . Stage 3 01:00 14.0 3.4 116 . . . . Stage 3 . . . . . . . Myoview Injected Stage 3 01:56 14.0 3.4 123 . . . Stop exercise at 07:56 RECOVERY 01:00 0.0 0.0 96 . . . . RECOVERY 02:00 0.0 0.0 86 . . . . RECOVERY 03:00 0.0 0.0 70 . 167/ 83 . . RECOVERY 04:00 0.0 0.0 63 . 180/ 61 . . RECOVERY 05:00 0.0 0.0 60 . 180/ 61 . . RECOVERY 06:00 0.0 0.0 63 . 180/ 61 . . RECOVERY 06:37 0.0 0.0 64 . 136/ 62 . . Electronically signed by : Nneka Saldana, 10/11/2022 16:31:25
--- NOTE | 2022-10-05 11:30 | NM_ITS ---
APPROVED REPORT Exam: Nuclear Stress Test Indication: soa..fatigue Patient Location: Outpatient Stress Tech: Cassi Morrow [place] Tech:YASH Glass RT (R)(N)(M) Ht: 6 ft 0 in Wt: 172 lbs HR: 52 bpm BP: 176/76 mmHg BSA: 2.00 m2 Rhythm: NSR TID: 1.09 History: SOA, fatigue Procedure: Patient exercised on Marcus protocol 7:56 minutes and sec, resting heart rate 52 bpm, resting blood pressure 176/76 mmHg, with exercise maximum heart rate achived was 124 bpm which is 91 % of the maximum predicted heart rate and blood pressure was 180/61 mmHg. Patient denied any complaint of chest pain. Patient has good exercise capacity, achieved 10.1 METs of workload on treadmill, the blood pressure response to exercise was normal. Cardiac Stress and Resting SPECT Images: Cardiac Stress and Resting SPECT images were obtained using technetium 99m Myoview 30.7 mCi stress and 9.99 mCi at rest. Raw images demonstrate significant GI radiotracer uptake in close proximity to the inferior LV wall. This may affect the diagnostic interpretation of the study findings. Resting and stress imaging in supine position demonstrate a small-sized, moderate, fixed perfusion defect in the basal inferior LV wall. This is no longer visualized with prone stress imaging. Findings are suggestive of artifact. Gated imaging demonstrates mild reduction in global and regional LV systolic function. LVEF is calculated at 49%. Conclusion: No definite fixed or reversible perfusion defects. Gated imaging demonstrates mild reduction in global and regional LV systolic function. LVEF is calculated at 49%. Electronically signed by : Nneka Saldana, 10/11/2022 16:37:27
== END ==
LOC: RAD 11:30
PROVIDERS: Visit Provider Internal Medicine
DX: R06.09 Other forms of dyspnea (principal)
CPT/HCPCS: 78452; 93017; A9502

== ENCOUNTER 2023-01-21 22:46 | Emergency (ER) | payer MEDICARE, SELFPAY ==
[2023-01-21 22:47] VITALS: BP 168/71; PULSE 60; RESP 18; TEMP 36.6; O2SAT 97; BMI 22.6
[2023-01-21 22:56] VITALS: BP 168/71; PULSE 58; O2SAT 98
--- OUTSIDE RECORDS SUMMARY | 2023-01-21 22:56 | XMS_ITS | Clinical Summary ---
Author Name Unknown Address [address] [place] [address] Phone Organization [facility] Address [address] [place] [address] Phone Care Team Providers Care Cognos Analyst Name Role Phone Zak DREW, Dakotah Dye [ ] Conditions or Problems Problem Name Problem Code Onset Date Status Entry Date Provider Comment Standard Description Annotate Dysuria 39087691 (SNOMED CT) 08/17 Active 08/17 Neli Bray Dysuria Prediabetes 223724020 (SNOMED CT) 08/13 Active 08/13 Sara L Prediabetes Staph epi septic arthritis, 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
--- OUTSIDE RECORDS SUMMARY | 2023-01-21 22:56 | XMS_ITS | Continuity of Care Document ---
Author Name Unknown Organization [facility] Address [address] [place] [id number] Phone Care Team Providers Care Ash Collector Name Role Phone Unavailable Unavailable Unavailable Procedures Procedure Date Offic/outpt E&m Estab Minor 10 07 Ophth Serv: Exam-eval; Interme Advance Directives Directive [...] on Encounter Offic/outpt E&m Estab Minor [address], [id number], tel:[phone] [facility] No Information No Information [facility] [address] [place] [address], [id number], tel:[phone] [facility]
[2023-01-21 23:03] VITALS: BP 130/90; PULSE 66; O2SAT 94
--- NOTE | 2023-01-21 23:17 | XR_ITS ---
PROCEDURE INFORMATION: Exam: XR Left Tibia and Fibula Exam date and time: 01/21/2023 11:35 PM Age: 82 years old Clinical indication: Pain; Lower leg; Left; Additional info: Fall pain TECHNIQUE: Imaging protocol: Radiologic exam of the left tibia and fibula. Views: 2 views. COMPARISON: CR XR FOOT LT MIN 3V 10/24/2020 9:33 PM FINDINGS: Bones/joints: Left knee arthroplasty in anatomic alignment with patellar resurfacing button. No loosening or evidence for fracture. Well corticated osseous densities around the medial and lateral malleolus; likely chronic Soft tissues: Normal. IMPRESSION: 1. Left knee arthroplasty in anatomic alignment with patellar resurfacing button. 2. No loosening or evidence for acute fracture.
--- NOTE | 2023-01-21 23:17 | XR_ITS ---
PROCEDURE INFORMATION: Exam: XR Left Knee Exam date and time: 01/21/2023 11:35 PM Age: 82 years old Clinical indication: Pain; Knee; Left; Additional info: Fall pain TECHNIQUE: Imaging protocol: Radiologic exam of the left knee. Views: 3 views. COMPARISON: CR XR KNEE LT 3V 09/16/2020 4:17 PM FINDINGS: Bones/joints: Left knee arthroplasty in anatomic alignment with patellar resurfacing button. No loosening or evidence for fracture. Soft tissues: Normal. IMPRESSION: 1. Left knee arthroplasty in anatomic alignment with patellar resurfacing button. 2. No loosening or evidence for fracture.
--- NOTE | 2023-01-21 23:17 | CT_ITS ---
PROCEDURE INFORMATION: Exam: CT Orbits Without Contrast Exam date and time: 01/21/2023 11:31 PM Age: 82 years old Clinical indication: Eye pain; Left; Additional info: Fall, head/left eye trauma, double vision TECHNIQUE: Imaging protocol: Computed tomography of the orbits without contrast. Radiation optimization: All CT scans at this facility use at least one of these dose optimization techniques: automated exposure control; mA and/or kV adjustment per patient size (includes targeted exams where dose is matched to clinical indication); or iterative reconstruction. REPORTING DATA: Count of CT and Cardiac NM exams in prior 12 months: This patient has received 0 known CTs and 0 known cardiac nuclear medicine studies in the 12 months prior to the current study. COMPARISON: CT HEAD/BRAIN WO CON 21/01/2023 23:28 FINDINGS: Paranasal sinuses: Normal. No air-fluid levels. Orbital cavities: Orbits are normal. Globes are unremarkable. Bones/joints: No acute orbital fractures. Left nasal and maxillary sinus wall fractures. Soft tissues: No significant facial soft tissue swelling. IMPRESSION: No acute orbital fractures.
--- NOTE | 2023-01-21 23:17 | XR_ITS ---
PROCEDURE INFORMATION: Exam: XR Left Shoulder Exam date and time: 01/21/2023 11:35 PM Age: 82 years old Clinical indication: Pain; Shoulder; Left; Additional info: Left shoulder pain, fall TECHNIQUE: Imaging protocol: Radiologic exam of the left shoulder. Views: 2 or more views. COMPARISON: CT CERVICAL SPINE WO CON 01/21/2023 11:33 PM FINDINGS: Bones/joints: No fracture or bone destruction. Mild irregularity of the greater tuberosity. Mild AC joint hypertrophy. Glenohumeral articulation is normal.. Soft tissues: Normal. IMPRESSION: No acute findings.
--- NOTE | 2023-01-21 23:18 | CT_ITS ---
PROCEDURE INFORMATION: Exam: CT Cervical Spine Without Contrast Exam date and time: 01/21/2023 11:33 PM Age: 82 years old Clinical indication: Neck pain; Additional info: Fall, advanced age TECHNIQUE: Imaging protocol: Computed tomography of the cervical spine without contrast. Radiation optimization: All CT scans at this facility use at least one of these dose optimization techniques: automated exposure control; mA and/or kV adjustment per patient size (includes targeted exams where dose is matched to clinical indication); or iterative reconstruction. REPORTING DATA: Count of CT and Cardiac NM exams in prior 12 months: This patient has received 0 known CTs and 0 known cardiac nuclear medicine studies in the 12 months prior to the current study. COMPARISON: CT CERVICAL SPINE WO CON 07/15/2020 21:05 FINDINGS: Bones/joints: Moderate bilateral neural foraminal stenosis from C3-C7. Straightening of the curvature of the cervical spine is likely positional. Multilevel degenerative changes of the cervical spine producing multiple levels of mild and moderate spinal canal stenosis. Lungs: Lung apices are normal. Soft tissues: Unremarkable. IMPRESSION: No acute fracture or malalignment of the cervical spine.
--- NOTE | 2023-01-21 23:18 | CT_ITS ---
PROCEDURE INFORMATION: Exam: CT Head Without Contrast Exam date and time: 01/21/2023 11:28 PM Age: 82 years old Clinical indication: Pain; Other: Fall; Additional info: Fall, double vision TECHNIQUE: Imaging protocol: Computed tomography of the head without contrast. Radiation optimization: All CT scans at this facility use at least one of these dose optimization techniques: automated exposure control; mA and/or kV adjustment per patient size (includes targeted exams where dose is matched to clinical indication); or iterative reconstruction. REPORTING DATA: Count of CT and Cardiac NM exams in prior 12 months: This patient has received 0 known CTs and 0 known cardiac nuclear medicine studies in the 12 months prior to the current study. COMPARISON: CT HEAD/BRAIN WO CON 12/18/2021 12:19 FINDINGS: Brain: Mild chronic brain volume loss and chronic small vessel ischemic changes. Small foci of bilateral frontal lobe encephalomalacia. Cerebral ventricles: No ventriculomegaly. Paranasal sinuses: Mild mucosal thickening in the paranasal sinuses. Mastoid air cells: Visualized mastoid air cells are well aerated. Orbital cavities: Status post bilateral cataract surgery. Bones/joints: Unremarkable. No acute fracture. Soft tissues: Unremarkable. IMPRESSION: No acute intracranial findings.
--- NOTE | 2023-01-21 23:25 | HMH.EDGENADL ---
Discharge Plan Disposition Patient Disposition: Home, Self-Care Prescriptions Prescriptions: No Action pravastatin 40 mg tablet 40 mg PO DAILY 90 Days coenzyme Q10 10 MG capsule 10 mg PO DAILY glucosamine sulfate 2KCl 1,000 MG tablet 1,000 mg PO DAILY bisoprolol-hydrochlorothiazide 1 EACH tablet 5 mg PO DAILY losartan 100 MG tablet 100 mg PO DAILY clopidogrel 75 MG tablet 75 mg PO DAILY aspirin 81 MG tablet,delayed release (DR/EC) 81 mg PO DAILY clindamycin HCl 300 MG capsule 300 mg PO QID Qty: 40 0RF Referrals Follow up/Referrals: Israel Ugalde MD [Primary Care Provider] - See instructions Activity Restrictions/Add. Instructions Additional Instructions/Restrictions: Please call and follow-up with your eye doctor next week. If your vision worsens, recommend more urgent evaluation. Please take Tylenol and ibuprofen as needed for pain. Clinical Impressions Clinical Impression: Vertical diplopia, Fall, Blunt trauma of face Laceration of nose Qualifiers: Encounter type: initial encounter Qualified Code(s): S01.21XA - Laceration without foreign body of nose, initial encounter Discharge ED Provider: Torres Liu General Adult HPI General Chief complaint: Fall Stated complaint: AO fall 01/21, nose and left eye pain Time Seen by Provider: 01/21/23 23:00 Mode of Arrival: Ambulatory Source of Information: Patient and Relative Limitations: No Limitations Description of Symptoms (Recalled from ER Triage Doc. by RN): Patient reports he was hanging nolan lights and tripped and fell in his yard over some railroad ties and landed face first into a tree branch that caused injury to left eye, laceration to nose. Patient denies loss of conciousness. Patient also reports left knee and left shoulder pain with movement. Ambulatory after fall. Patient reports double vision , pupils 2mm equal at time of triage. Patient takes plavix. History of Present Illness HPI narrative: 82-year-old male, history of coronary artery disease on Plavix, history of hypertension presents with head trauma and diplopia. He reports that he tripped and fell striking his head in his garden causing a laceration of his nose and abrasion above the left eye. He reports diplopia, over and under, resolves when either eye closes. He reports that his vision is otherwise completely normal. He denies any blockage extraocular movement, denies any pain with extraocular movement. He also reports left shoulder pain and left upper tib-fib pain. Denies loss of consciousness. Related Data Home Medications Medication Instructions Recorded Confirmed bisoprolol 5 5 mg PO DAILY High cholesterol 08/02/17 06/23/20 mg-hydrochlorothiazide 6.25 mg tablet losartan 100 mg tablet 100 mg PO DAILY HTN 08/02/17 06/23/20 pravastatin 40 mg tablet 40 mg PO DAILY Cholesterol 90 days 10/24/17 06/23/20 coenzyme Q10 10 mg capsule 10 mg PO DAILY Supplement 08/28/18 06/23/20 glucosamine sulfate 2KCl 1,000 mg 1,000 mg PO DAILY Supplement 08/28/18 06/23/20 tablet aspirin 81 mg tablet,delayed 81 mg PO DAILY Blood thinner 06/09/20 06/23/20 release clopidogrel 75 mg tablet 75 mg PO DAILY Blood thinner 06/09/20 06/23/20 Previous Rx's Medication Instructions Recorded clindamycin HCl 300 mg capsule 300 mg PO QID #40 caps 10/24/20 Allergies Allergy/AdvReac Type Severity Reaction Status Date / Time Penicillins Allergy Verified 06/23/20 14:10 [facility] Disclaimer: The information contained in this section may have been updated after the patient was seen, as this information can be updated by other users. Social History Smoking Status: Never smoker alcohol intake: never substance use type: denies use current occupational status: retired Travel in the last 8 weeks: None household members: spouse housing: house current occupational exposures/hazards: No caffeine: Yes ROS Obtained: Yes A
--- NOTE | 2023-01-21 23:44 | PC.NURSE ---
pt to radiology
--- NOTE | 2023-01-21 23:49 | PC.NURSE ---
pt back in room from radiology
[2023-01-22 00:10] VITALS: BP 148/64; PULSE 49; O2SAT 99
[2023-01-22 00:30] VITALS: BP 135/62; PULSE 51; O2SAT 98
[2023-01-22 01:00] VITALS: BP 137/60; PULSE 52; RESP 18; O2SAT 99
--- NOTE | 2023-01-22 01:19 | PC.NURSE ---
pc to [facility] for consult from Ophthalmology
--- NOTE | 2023-01-22 01:36 | PC.NURSE ---
on phone with dr nayeli galvez
[2023-01-22 02:04] VITALS: BP 146/70; PULSE 65; RESP 18; TEMP 36.7; O2SAT 97
--- NOTE | 2023-01-25 09:43 | PC.NURSE ---
patient called back into the ER to ask what imaging he had done due to him having a retina appointment scheduled today for his eye injury that he ended up coming to the ER for this past Tuesday; I told him what would be beneficial to his appt and transferred him to [facility] about getting a disc burned for his medical records.
== END 2023-01-22 02:05 | disposition home or self-care (01) ==
PROVIDERS: Emergency Provider Emergency Medicine; PCP Internal Medicine
DX: S01.21XA Laceration without foreign body of nose, initial encounter (principal); S00.212A Abrasion of left eyelid and periocular area, initial encounter; H53.2 Diplopia; I25.10 Atherosclerotic heart disease of native coronary artery without angina pectoris; I10 Essential (primary) hypertension; Z79.01 Long term (current) use of anticoagulants; W01.118A Fall on same level from slipping, tripping and stumbling with subsequent striking against other sharp object, initial encounter; M54.2 Cervicalgia; M79.662 Pain in left lower leg; M25.512 Pain in left shoulder
CPT/HCPCS: 70450; 70480; 72125; 73030; 73562; 73590; 99285

== ENCOUNTER → 2023-01-27 15:21 | Outpatient (CLI) | payer MEDICARE, SELFPAY ==
[2023-01-27 15:53] LABS: Basophils % 0.6 % (0.1-2.0); Eosinophils # 0.2 K/mm3 (0.0-0.4); Eosinophils % 4.5 % (0.1-12.0); Hematocrit 39.8 % (42.0-52.0); Hemoglobin 13.8 g/dL (14.1-18.0); Lymphocytes # 1.5 K/mm3 (0.7-4.5); Lymphocytes % 27.5 % (10-50); Mean Corpuscular HGB Conc 34.7 g/dL (31.8-35.4); Mean Corpuscular Volume 89.1 fl (80-94); Mean Platelet Volume 8.6 fl (7.4-10.4); Monocytes # 0.4 K/mm3 (0.1-1.0); Monocytes % 6.9 % (1.7-9.3); Neutrophils # 3.3 K/mm3 (1.8-7.8); Neutrophils % 60.5 % (37.0-80.0); Platelet Count 190 K/mm3 (142-424); Red Blood Count 4.47 M/mm3 (4.60-6.20); Red Cell Distribution Width 12.5 % (11.5-17.5); White Blood Count 5.4 K/mm3 (4.8-10.8)
[2023-01-27 16:18] LABS: Erythrocyte Sedimentation Rate 45 mm/hr (0-20)
[2023-01-27 16:33] LABS: Blood Urea Nitrogen 25 mg/dl (9-20); Estimated Glomerular Filt Rate 64 ml/min (>60); GFR (African American) 77 ML/MIN (>60)
[2023-01-27 16:38] LABS: C-Reactive Protein 0.4 mg/L (0-4)
== END ==
PROVIDERS: PCP Internal Medicine; Visit Provider Ophthalmology
DX: H53.2 Diplopia (principal)
CPT/HCPCS: 36415; 82565; 84520; 85025; 85651; 86140

== ENCOUNTER 2023-02-14 16:08 | Outpatient (CLI) | payer MEDICARE, SELFPAY ==
--- NOTE | 2023-02-14 16:18 | XR_ITS ---
PROCEDURE INFORMATION: Exam: XR Left Ribs with PA Chest Exam date and time: 02/14/2023 4:20 PM Age: 82 years old Clinical indication: Injury or trauma; Fall; Rib area, left side; Blunt trauma; Additional info: Fall 01/29, left lateral chest pain TECHNIQUE: Imaging protocol: Radiologic exam of the left ribs with PA chest. Views: 3 views COMPARISON: CR XR CHEST PORTABLE 12/18/2021 11:38 AM FINDINGS: Lungs: No evidence of acute pulmonary disease or infiltrates; lung alfred appear clear. Pleural spaces: No large effusion or pneumothorax. Heart/Mediastinum: No evidence of mediastinal widening or cardiac silhouette enlargement; the mediastinum and heart appear within normal limits for contour and size. Vasculature: Scattered atherosclerotic disease of the arterial vasculature. There are calcifications of the aortic arch. Bones/joints: No evidence of acute osseous abnormalities within the visualized portions of the thoracic spine and ribs. Osseous structures appear appropriate for patient age. IMPRESSION: 1. No displaced rib fracture is identified. 2. No dense parenchymal consolidation, pleural effusion, or pneumothorax.
== END 2023-02-14 23:59 ==
LOC: RAD 16:12
PROVIDERS: PCP Internal Medicine; Visit Provider Internal Medicine
DX: R07.89 Other chest pain (principal); W19.XXXA Unspecified fall, initial encounter
CPT/HCPCS: 71101

== ENCOUNTER 2023-03-25 12:07 | Outpatient (CLI) | payer MEDICARE, SELFPAY ==
[2023-03-25 12:39] LABS: Blood Urea Nitrogen 20 mg/dl (9-20); Estimated Glomerular Filt Rate 71 ml/min (>60); GFR (African American) 86 ML/MIN (>60)
--- NOTE | 2023-03-25 13:02 | MR_ITS ---
FINAL REPORT CLINICAL HISTORY: DIPLOPLA COMPARISON: None FINDINGS: Multiplanar MR imaging of the brain was performed without and with contrast. There is motion on many images that limits overall image quality. There is mild age-appropriate atrophy. Scattered foci of increased T2 signal are seen in the cerebral white matter that have a nonspecific appearance but likely represent mild chronic ischemic/gliotic changes. There is no evidence of intracranial hemorrhage or mass. No abnormal ventricular dilatation is identified. There is no evidence of shift of the midline structures. No abnormal extra-axial fluid collection is seen. No area of abnormal restricted diffusion is identified. The posterior fossa and brainstem have an unremarkable appearance. No abnormal contrast enhancement is seen. Normal major vessel vascular flow voids are seen. Mild soft tissue thickening is present in the ethmoid air cells. IMPRESSION: Mild atrophy and chronic ischemic/gliotic changes. No acute intracranial abnormality. Reviewed, Interpreted and Dictated by Harpal Alvares III, MD Transcribed by Maryann Hays Authenticated and [facility]
--- NOTE | 2023-03-25 13:02 | MR_ITS ---
FINAL REPORT CLINICAL HISTORY: DIPLOPLA COMPARISON: None FINDINGS: Multiplanar MR imaging of the orbits was performed without and with contrast. There is motion on many images which somewhat limits overall image quality. The globes are intact without evidence of hemorrhage or mass. The extraocular muscles are intact. The optic nerves have an unremarkable appearance. There is no evidence of intraorbital mass or abnormal fluid collection. No abnormal contrast enhancement is identified. The optic chiasm has an unremarkable appearance. Mild soft tissue thickening is present in the ethmoid air cells. IMPRESSION: No mass or abnormal contrast enhancement Reviewed, Interpreted and Dictated by Harpal Alvares III, MD Transcribed by Maryann Hays Authenticated and [facility]
[2023-03-25] MEDS: GADOTERIDOL INJ 17ML SYRINGE 15 ML IV (15:00)
[2023-03-25] MEDS: SODIUM CHLORIDE 0.9% 10ML SYR (RAD ONLY) 10 ML IV (15:00)
== END 2023-03-25 23:59 ==
LOC: RAD 12:07
PROVIDERS: PCP Internal Medicine; Visit Provider Ophthalmology
DX: H53.2 Diplopia (principal)
CPT/HCPCS: 36415; 70543; 70553; 82565; 84520; A9576

== ENCOUNTER 2023-03-30 12:19 | Outpatient (CLI) | payer MEDICARE, SELFPAY ==
[2023-03-30 12:41] LABS: Basophils % 0.3 % (0.1-2.0); Eosinophils # 0.3 K/mm3 (0.0-0.4); Eosinophils % 4.8 % (0.1-12.0); Hematocrit 40.5 % (42.0-52.0); Hemoglobin 13.3 g/dL (14.1-18.0); Lymphocytes # 1.7 K/mm3 (0.7-4.5); Lymphocytes % 28.5 % (10-50); Mean Corpuscular HGB Conc 32.9 g/dL (31.8-35.4); Mean Corpuscular Hemoglobin 30.3 pg (27.0-31.2); Mean Corpuscular Volume 92.2 fl (80-94); Mean Platelet Volume 8.3 fl (7.4-10.4); Monocytes # 0.5 K/mm3 (0.1-1.0); Monocytes % 8.6 % (1.7-9.3); Neutrophils # 3.4 K/mm3 (1.8-7.8); Neutrophils % 57.8 % (37.0-80.0); Platelet Count 186 K/mm3 (142-424); Red Cell Distribution Width 12.8 % (11.5-17.5); White Blood Count 5.8 K/mm3 (4.8-10.8)
[2023-03-30 13:33] LABS: Alanine Aminotransferase 29 U/L (12-78); Albumin Level 4.2 g/dl (3.5-5.0); Albumin/Globulin Ratio 1.5 (1.1-1.8); Alkaline Phosphatase 71 U/L (38-126); Anion Gap 7.7 mEq/L (5-15); Aspartate Amino Transferase 32 U/L (17-59); Bilirubin,Total 0.9 mg/dl (0.2-1.3); Blood Urea Nitrogen 25 mg/dl (9-20); Calcium 9.7 mg/dl (8.4-10.2); Carbon Dioxide 30 mmol/L (22.0-30.0); Chloride 109 mmol/L (98-107); Chol/HDL Ratio 3.2 (1-3.5); Cholesterol 103 mg/dl (140-200); Estimated Glomerular Filt Rate 81 ml/min (>60); GFR (African American) 98 ML/MIN (>60); Globulin 2.8 g/dL (1.3-3.2); Glucose 99 mg/dl (74-100); HDL Cholesterol 32 mg/dl (40-60); Potassium 4.7 mmoL/L (3.5-5.1); Sodium 142 mmol/L (136-145); Triglycerides 129 mg/dl (30-150); VLDL Cholesterol 26 mg/dL (0-40)
[2023-03-30 13:44] LABS: Direct LDL Cholesterol 50.32 mg/dL (100-129)
== END 2023-03-30 23:59 ==
LOC: LAB.DROPOF 12:19
PROVIDERS: PCP Internal Medicine; Visit Provider Internal Medicine
DX: I11.9 Hypertensive heart disease without heart failure (principal); Z12.5 Encounter for screening for malignant neoplasm of prostate; E78.5 Hyperlipidemia, unspecified; G60.9 Hereditary and idiopathic neuropathy, unspecified; I25.10 Atherosclerotic heart disease of native coronary artery without angina pectoris; Z95.820 Peripheral vascular angioplasty status with implants and grafts; M15.0 Primary generalized (osteo)arthritis; Z96.653 Presence of artificial knee joint, bilateral
CPT/HCPCS: 80053; 80061; 85025; G0103

== ENCOUNTER 2023-04-20 16:04 | Outpatient (CLI) | payer MEDICARE, SELFPAY ==
[2023-04-20 17:48] LABS: Iron 109 ug/dL (49-181)
[2023-04-20 17:57] LABS: Total Iron Binding Capacity 282 ug/dL (261-462)
[2023-04-20 19:22] LABS: Vitamin B12 459 pg/mL (239-931)
== END 2023-04-20 23:59 ==
LOC: LAB 16:07
PROVIDERS: PCP Internal Medicine; Visit Provider Internal Medicine
DX: D64.9 Anemia, unspecified (principal)
CPT/HCPCS: 36415; 82607; 82746; 83540; 83550

== ENCOUNTER 2023-06-22 16:49 | Outpatient (CLI) | payer MEDICARE, SELFPAY ==
[2023-06-22 20:05] LABS: Anion Gap 14.6 mEq/L (5-15); Blood Urea Nitrogen 25 mg/dl (9-20); Calcium 9.8 mg/dl (8.4-10.2); Carbon Dioxide 28 mmol/L (22.0-30.0); Chloride 105 mmol/L (98-107); Estimated Glomerular Filt Rate 58 ml/min (>60); GFR (African American) 70 ML/MIN (>60); Glucose 64 mg/dl (74-100); Potassium 4.6 mmoL/L (3.5-5.1); Sodium 143 mmol/L (136-145)
== END 2023-06-22 23:59 | disposition home or self-care (01) ==
LOC: LAB.DROPOF 16:51
PROVIDERS: PCP Internal Medicine; Visit Provider Internal Medicine
DX: I10 Essential (primary) hypertension (principal)
CPT/HCPCS: 80048

== ENCOUNTER 2023-09-15 15:57 | Observation (INO) | payer MEDICARE, SELFPAY ==
[2023-09-15] VITALS (10 sets, daily range): BP systolic 93–136; BP diastolic 41–94; PULSE 62–84; RESP 16–18; TEMP 36.7–37.9; O2SAT 93–99; BMI 24.0; BMI 23.4
--- NOTE | 2023-09-15 16:05 | ECG_ITS ---
APPROVED REPORT Exam: Resting ECG HR:78 bpm ECG Measurements Heart Rate 78 AXES NH 179 P 80 QRSd 82 QRS 69 QT 381 T 60 QTc 414 Conclusion SINUS RHYTHM NONSPECIFIC T-WAVE ABNORMALITY BORDERLINE ECG Electronically signed by : ERINN ANNE, 09/15/2023 23:32:12
--- NOTE | 2023-09-15 16:10 | PC.NURSE ---
Dr. Alberto at [facility] for pt eval
--- NOTE | 2023-09-15 16:18 | CT_ITS ---
PROCEDURE INFORMATION: Exam: CT Head Without Contrast Exam date and time: 09/15/2023 5:03 PM Age: 83 years old Clinical indication: Other: Weakness; Additional info: Severe back pain, SOA, weakness, injury TECHNIQUE: Imaging protocol: Computed tomography of the head without contrast. Radiation optimization: All CT scans at this facility use at least one of these dose optimization techniques: automated exposure control; mA and/or kV adjustment per patient size (includes targeted exams where dose is matched to clinical indication); or iterative reconstruction. COMPARISON: MR HEAD/BRAIN WO/W CON 03/25/2023 1:01 PM FINDINGS: Brain: Age-related involutional changes and chronic microvascular ischemic disease. No evidence for acute transcortical infarct. No mass effect or midline shift. No extra-axial collection. No acute intracranial hemorrhage. Basal cisterns are patent. Cerebral ventricles: No ventriculomegaly. Paranasal sinuses: Visualized sinuses are unremarkable. No fluid levels. Mastoid air cells: Visualized mastoid air cells are well aerated. Bones: Unremarkable. No acute fracture. Soft tissues: Unremarkable. IMPRESSION: No evidence for acute transcortical infarct, acute intracranial hemorrhage, or mass effect.
--- NOTE | 2023-09-15 16:18 | CT_ITS ---
PROCEDURE INFORMATION: Exam: CT Thoracic Spine Without Contrast Exam date and time: 09/15/2023 5:06 PM Age: 83 years old Clinical indication: Other: Severe back pain; Additional info: Severe back pain, SOA, weakness, injury TECHNIQUE: Imaging protocol: Computed tomography of the thoracic spine without contrast. Radiation optimization: All CT scans at this facility use at least one of these dose optimization techniques: automated exposure control; mA and/or kV adjustment per patient size (includes targeted exams where dose is matched to clinical indication); or iterative reconstruction. COMPARISON: 1. CT THORACIC SPINE WO CON 09/12/2020 9:[address] CERVICAL SPINE WO CON 09/15/2023 5:[address] LUMBAR SPINE WO CON 09/15/2023 5:06 PM FINDINGS: Bones/joints: There is exaggeration of the spinal curvature. There is diffuse osseous demineralization. No evidence of acute spondylolisthesis or vertebral subluxation. Vertebral body heights are generally preserved, but some endplate sclerosis and anterior osteophytes are noted at multiple levels. Narrowing of multiple intervertebral disc spaces observed, indicative of degenerative disc disease. Hypertrophic changes are seen in the facet joints, consistent with osteoarthritis. No fractures or bony lesions identified. No abnormalities seen in adjacent osseous structures. Soft tissues: Unremarkable. Other findings: No obvious abnormalities seen in the prevertebral and paravertebral soft tissues. IMPRESSION: Degenerative changes without acute abnormality detected.
--- NOTE | 2023-09-15 16:18 | CT_ITS ---
PROCEDURE INFORMATION: Exam: CT Lumbar Spine Without Contrast Exam date and time: 09/15/2023 5:06 PM Age: 83 years old Clinical indication: Other: Severe back pain; Additional info: Severe back pain, SOA, weakness, injury TECHNIQUE: Imaging protocol: Computed tomography of the lumbar spine without contrast. Radiation optimization: All CT scans at this facility use at least one of these dose optimization techniques: automated exposure control; mA and/or kV adjustment per patient size (includes targeted exams where dose is matched to clinical indication); or iterative reconstruction. COMPARISON: 1. CT LUMBAR SPINE WO CON 09/12/2020 9:10 PM 2. MR LUMBAR SPINE WO CON 12/19/2019 4:[address] THORACIC SPINE WO CON 09/15/2023 5:06 PM FINDINGS: Bones/joints: There is diffuse osseous demineralization. There is anterolisthesis of L5 on S1. There is multilevel degenerative change with loss of intervertebral disc space as well as vacuum phenomenon and osteophyte formation. There is slight anterolisthesis of L4 on L5. There is significant canal narrowing at L2-L3 with bilateral facet arthropathy. Lungs: There are areas of subpleural reticulation throughout the visualized lungs which are nonspecific. Soft tissues: Unremarkable. IMPRESSION: Multilevel degenerative change with significant canal narrowing noted at L2-L3.
--- NOTE | 2023-09-15 16:18 | CT_ITS ---
PROCEDURE INFORMATION: Exam: CT Cervical Spine Without Contrast Exam date and time: 09/15/2023 5:06 PM Age: 83 years old Clinical indication: Severe back pain; Additional info: Severe back pain, SOA, weakness, injury TECHNIQUE: Imaging protocol: Computed tomography of the cervical spine without contrast. Radiation optimization: All CT scans at this facility use at least one of these dose optimization techniques: automated exposure control; mA and/or kV adjustment per patient size (includes targeted exams where dose is matched to clinical indication); or iterative reconstruction. COMPARISON: CT CERVICAL SPINE WO CON 01/21/2023 11:33 PM FINDINGS: Bones: No acute fracture or traumatic subluxation. No spondylolisthesis. The atlantooccipital and atlantoaxial articulations are intact. Occipital condyles are intact. Facet joint alignments are maintained. Age-related degenerative disc disease. Multilevel degenerative changes of the cervical spine. Prevertebral and retropharyngeal spaces: No prevertebral soft tissue swelling. Lungs: Lung apices are normal. Soft tissues: Unremarkable. IMPRESSION: No acute fracture or traumatic subluxation.
--- NOTE | 2023-09-15 16:18 | CT_ITS ---
PROCEDURE INFORMATION: Exam: CTA Chest With Contrast Exam date and time: 09/15/2023 5:11 PM Age: 83 years old Clinical indication: Shortness of breath; Additional info: Severe back pain, SOA, weakness, injury TECHNIQUE: Imaging protocol: Computed tomographic angiography of the chest with contrast. Exam focused on the arteries. 3D rendering (Not supervised by radiologist): MIP and/or 3D reconstructed images were created by the technologist. Radiation optimization: All CT scans at this facility use at least one of these dose optimization techniques: automated exposure control; mA and/or kV adjustment per patient size (includes targeted exams where dose is matched to clinical indication); or iterative reconstruction. Contrast material: ISOVUE; Contrast volume: 80 ml; Contrast route: INTRAVENOUS (IV); COMPARISON: 1. CT CERVICAL SPINE WO CON 09/15/2023 5:[address] THORACIC SPINE WO CON 09/15/2023 5:[address] CERVICAL SPINE WO CON 01/21/2023 11:33 PM FINDINGS: Pulmonary arteries: Normal. No pulmonary emboli. Aorta: There is atherosclerotic disease of the visualized aorta and its major branch vessels. Lungs: There are calcified granulomas in the right lung base. Scattered areas of bronchial wall thickening which are likely chronic inflammatory. A few areas of subpleural reticulation are noted, nonspecific. Pleural spaces: Unremarkable. No pneumothorax. No pleural effusion. Heart: Unremarkable. No cardiomegaly. No pericardial effusion. Coronary arteries: There is moderate coronary atherosclerotic disease/calcification although evaluation is limited secondary to the non gated nature of the study. Lymph nodes: There are mildly prominent mediastinal lymph nodes which are nonenlarged. Pancreas: There is fatty replacement of the pancreas. Bones/joints: There is diffuse degenerative disease of the visualized osseous structures. Soft tissues: Unremarkable. IMPRESSION: No evidence for clinically relevant pulmonary arterial filling defect, dense parenchymal consolidation, pleural effusion, or pneumothorax. No acute intrathoracic anomaly.
--- NOTE | 2023-09-15 16:18 | CT_ITS ---
PROCEDURE INFORMATION: Exam: CTA Abdomen and Pelvis With Contrast Exam date and time: 09/15/2023 5:11 PM Age: 83 years old Clinical indication: Shortness of breath; Additional info: Severe back pain, SOA, weakness, injury TECHNIQUE: Imaging protocol: Computed tomographic angiography of the abdomen and pelvis with contrast. Exam focused on the arteries. 3D rendering (Not supervised by radiologist): MIP and/or 3D reconstructed images were created by the technologist. Radiation optimization: All CT scans at this facility use at least one of these dose optimization techniques: automated exposure control; mA and/or kV adjustment per patient size (includes targeted exams where dose is matched to clinical indication); or iterative reconstruction. Contrast material: ISOVUE 370; Contrast volume: 100 ml; Contrast route: INTRAVENOUS (IV); COMPARISON: 1. CT ABDOMEN PELVIS W CON 09/12/2020 9:[address] ANGIO CHEST PE PROTOCOL 09/15/2023 5:11 PM FINDINGS: Lungs: Scattered areas of bronchial wall thickening which are likely chronic inflammatory. A few areas of subpleural reticulation are noted, nonspecific. There is some periosteophyte fibrosis noted within the lungs. Aorta: There is atherosclerotic disease of the visualized aorta and its major branch vessels. Celiac trunk and mesenteric arteries: There is significant narrowing and occlusion at the origin of the celiac axis (image 117 series 1006). This appears diff backfill via the SMA. Renal arteries: No occlusion or significant stenosis. Right iliac arteries: No occlusion or significant stenosis. Left iliac arteries: No occlusion or significant stenosis. Liver: No mass. Gallbladder and biliary ducts: Unremarkable. No calcified stones. No ductal dilation. Pancreas: There is fatty replacement of the pancreas. Spleen: Unremarkable. No splenomegaly. Adrenal glands: Unremarkable. No mass. Kidneys and ureters: Unremarkable. No solid mass. No hydronephrosis. Stomach and bowel: There are scattered colonic diverticula without evidence for active diverticulitis. There is large volume stool throughout the colon. Appendix: No evidence of appendicitis. Intraperitoneal space: Unremarkable. No free air. No significant fluid collection. Lymph nodes: There are mildly prominent but nonenlarged and nonspecific retroperitoneal nodes. Mildly prominent nodes in the central mesentery, nonspecific. Urinary bladder: Unremarkable. No mass. Reproductive: Unremarkable as visualized. Bones/joints: There is diffuse degenerative disease of the visualized osseous structures. There is diffuse osseous demineralization. There is anterolisthesis of L5 on S1 with bilateral pars interarticularis defects. Soft tissues: Unremarkable. IMPRESSION: 1. No acute traumatic injury is identified. 2. 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
--- NOTE | 2023-09-15 16:24 | PC.NURSE ---
RT notified of VBG order
[2023-09-15 16:26] LABS: Basophils % 0.8 % (0.1-2.0); Eosinophils % 0.5 % (0.1-12.0); Hematocrit 41.1 % (42.0-52.0); Lymphocytes # 0.9 K/mm3 (0.7-4.5); Lymphocytes % 28.3 % (10-50); Mean Corpuscular HGB Conc 34.1 g/dL (31.8-35.4); Mean Corpuscular Hemoglobin 30.8 pg (27.0-31.2); Mean Corpuscular Volume 90.2 fl (80-94); Mean Platelet Volume 10.5 fl (7.4-10.4); Monocytes # 0.3 K/mm3 (0.1-1.0); Neutrophils # 1.9 K/mm3 (1.8-7.8); Neutrophils % 61.4 % (37.0-80.0); Platelet Count 132 K/mm3 (142-424); Red Blood Count 4.56 M/mm3 (4.60-6.20); Red Cell Distribution Width 13.8 % (11.5-17.5); White Blood Count 3.2 K/mm3 (4.8-10.8)
[2023-09-15 16:28] LABS: VBG Base Excess -3.8 mmol/L (-2.4-2.3); VBG HCO3 21.2 mmol/L (23-30); VBG Oxygen Saturation 39.3 % (50-70); VBG PCO2 35.9 mmol/L (35-51); VBG PH 7.39 mmol/L (7.31-7.41); VBG Total CO2 22.3 mmol/L (23-27)
[2023-09-15 16:30] LABS: Lactate Venous 3.1 mmol/L (0.4-2.0)
[2023-09-15 16:31] LABS: Coronavirus 19, PCR Not Detected (NotDetected); Influenza A, PCR Not Detected (NotDetected); Influenza B, PCR Not Detected (NotDetected)
[2023-09-15 16:33] LABS: Activated Partial Thrombo Time 29.7 seconds (22.8-30.6); INR 0.95 (0.9-1.1); Prothrombin Time 10.7 seconds (10.1-12.5)
[2023-09-15 16:42] LABS: Alanine Aminotransferase 131 U/L (12-78); Albumin Level 4.3 g/dl (3.5-5.0); Albumin/Globulin Ratio 1.2 (1.1-1.8); Alkaline Phosphatase 127 U/L (38-126); Aspartate Amino Transferase 135 U/L (17-59); Bilirubin,Total 1.5 mg/dl (0.2-1.3); Blood Urea Nitrogen 56 mg/dl (9-20); Calcium 9.2 mg/dl (8.4-10.2); Carbon Dioxide 22 mmol/L (22.0-30.0); Chloride 105 mmol/L (98-107); Creatinine Clearance Estimated 24 mL/min (50-200); Estimated Glomerular Filt Rate 25 ml/min (>60); GFR (African American) 30 ML/MIN (>60); Globulin 3.5 g/dL (1.3-3.2); Glucose 137 mg/dl (74-100); Sodium 138 mmol/L (136-145); Total Protein,Serum 7.8 g/dl (6.3-8.2)
[2023-09-15 16:59] LABS: Troponin I 0.01 ng/ml (0.00-0.034)
[2023-09-15 17:00] LABS: T4 (Thyroxine) 8.8 ug/dl (5.53-11.0)
[2023-09-15 17:01] LABS: C-Reactive Protein 22.3 mg/L (0-4)
[2023-09-15 17:08] LABS: Microscopic, Urine URINE MICROSCOPIC (MICROSCOPIC)
[2023-09-15] MEDS: LACTATED RINGERS 1000ML 2,260 ML 1130 ML IV (17:09)
[2023-09-15 17:11] LABS: Appearance,Urine CLEAR (Clear); Blood, Urine Negative (Negative); Color,Urine YELLOW (Yellow); Glucose,Urine (UA) Negative (Negative); Ketones,Urine Negative (Negative); Leukocyte Esterase,Urine Negative (Negative); Nitrate,Urine Negative (Negative); PH,Urine 5.5 (5.0-8.5); Protein,Urine 1+ (Negative); Specific Gravity, Urine >= 1.030 (1.005-1.030)
[2023-09-15 17:13] LABS: Thyroid Stimulating Hormone 1.19 uIU/mL (0.465-4.68)
[2023-09-15] MEDS: SODIUM CHLORIDE 0.9% 10ML SYR (RAD ONLY) 10 ML IV (17:14)
[2023-09-15] MEDS: IOPAMIDOL-370 (76%);100ML BOTTLE 80 ML IV (17:14)
[2023-09-15] MEDS: 0.9 % SODIUM CHLORIDE 50 ML VIAL IV (17:14)
[2023-09-15 17:15] LABS: Procalcitonin 1.51 ng/mL (0.0-2.0)
[2023-09-15 17:16] LABS: Bilirubin,Urine 1+ (Negative)
[2023-09-15 17:25] LABS: Amorphous Sediment,Urine 2+ /lpf; Bacteria,Urine Trace /lpf; Calcium Oxalate Crystals,Urine 1+ /lpf; Squamous Epithelial Cell,Urine Occasional #/hpf (0-5); WBC,Urine Occasional #/hpf (0-3)
[2023-09-15 17:43] LABS: NT Pro Brain Natriuretic Pep. 368 pg/mL (0-450)
--- NOTE | 2023-09-15 18:23 | [facility].EDCP ---
Discharge Plan Disposition Patient Disposition: Admitted Clinical Impressions Clinical Impression: ISHA (acute kidney injury), Transaminitis Discharge ED Provider: Yani Alberto HPI General Chief Complaint: Shortness of Breath/Dyspnea Stated Complaint: SOA, weak dizzy Time Seen by Provider: 09/15/23 16:09 Mode of Arrival: Wheelchair Source of Information: Patient Limitations: No Limitations Description of Symptoms (Recalled from ER Triage Doc. by RN): shortness of breath History of Present Illness HPI narrative: This patient is an 83-year-old male with a history of CAD, hypertension, hyperlipidemia, and chronic back pain presented to the emergency department for evaluation with multiple complaints. He states that for 5 or 6 days now, he has not been sleeping. He also believes that he may have injured his back having to pick up attendant and move his . He also states that he has been feeling very lightheaded and short of breath, stating that anytime he does any sort of minimal exertion he gets very short of breath. it feels almost like when he had his prior heart attack. He notes that he nearly passes out anytime he stands up. He tried to go to his primary care office today and they sent him here for evaluation. Related Data Home Medications ?Medication ?Instructions ?Recorded ?Confirmed coenzyme Q10 10 mg capsule 10 mg PO DAILY Supplement 08/28/18 09/15/23 glucosamine sulfate 2KCl 1,000 mg 1,000 mg PO DAILY Supplement 08/28/18 09/15/23 tablet aspirin 81 mg tablet,delayed 81 mg PO DAILY Blood thinner 06/09/20 09/15/23 release losartan 100 1 tab PO DAILY 09/15/23 09/15/23 mg-hydrochlorothiazide 25 mg tablet rosuvastatin 10 mg tablet 10 mg PO DAILY 09/15/23 09/15/23 Previous Rx's ?Medication ?Instructions ?Recorded clopidogrel 75 mg tablet See Rx Instructions .Route 08/17/23 .COMPLEX #90 tabs bisoprolol 5 See Rx Instructions .Route 09/14/23 mg-hydrochlorothiazide 6.25 mg .COMPLEX #90 tabs tablet Allergies Allergy/AdvReac Type Severity Reaction Status Date / Time Penicillins Allergy Verified 06/23/20 14:10 [facility] Disclaimer: The information contained in this section may have been updated after the patient was seen, as this information can be updated by other users. Medical History (Updated 09/15/23 @ 23:17 by Yani Alberto DO) Hypertension History of heart attack Social History Smoking Status: Never smoker alcohol intake: never substance use type: denies use current occupational status: retired Travel in the last 8 weeks: None household members: spouse housing: house current occupational exposures/hazards: No caffeine: Yes ROS Obtained: Yes All systems reviewed & no additional complaints except as documented Physical Exam General General appearance: alert and in no apparent distress Head Head exam: atraumatic and normocephalic Eye Eye exam: Present normal appearance, PERRL and EOMI ENT ENT exam: Present mucous membranes dry and normal external ear exam Neck Neck exam: Present normal inspection, full ROM and trachea midline; Absent tenderness Chest Chest inspection: Present normal inspection and symmetric chest wall rise; Absent tenderness Respiratory Respiratory exam: Present normal lung sounds bilaterally; Absent respiratory distress, wheezes, stridor or accessory muscle use Cardiovascular Cardiovascular exam: Present regular rate and normal rhythm Abdominal Exam Abdominal exam: Present soft; Absent distention, tenderness or guarding Extremities Exam Extremities exam: Present normal inspection, full ROM and normal capillary refill; Absent tenderness or edema Back Exam Back exam: Present normal inspection and full ROM; Absent tenderness Neurological Exam Neurological exam: Present alert, oriented X3, CN II-XII intact and normal gait; Absent motor sensory deficit Psychiatric Psychiatric exam: Present normal affect and normal mood Skin Skin exam: Present warm and dry HEART Score HEART Score HEART Score assessment performed?: Yes History (anamnesis): Slightly suspicious ECG: Normal Age: >65 years Risk factors: Atherosclerosis history Troponin: </= normal limit HEART Score: 4 Critical Care Critical Care Time Critical Care Time: No Medical Decision Making Moisés Inquiry Pt receiving controlled substance: No Vital Signs Vital Signs: 09/15/23 15:58 09/15/23 16:55 09/15/23 17:31 Temperature 99.2 F Temperature Source Oral Pulse Rate 75 Pulse Rate [Orthostatic Lying] 76 Pulse Rate [Orthostatic Sitting] 73 Pulse Rate [Orthostatic Standing] 78 Pulse Rate [Right] 81 Respiratory Rate 18 Blood Pressure 99/47 L Blood Pressure [Orthostatic Lying] 98/51 L Blood Pressure [Orthostatic Sitting] 100/41 L Blood Pressure [Orthostatic Standing] 93/44 L Blood Pressure [Right Arm] 132/94 H Blood Pressure Mean [Right Arm] 106 Blood Pressure Position 02 Sat by Pulse Oximetry 93 L 98 Oxygen Delivery Method Room Air Room Air 09/15/23 18:00 09/15/23 18:31 09/15/23 20:24 Temperature 98.1 F Temperature Source Oral Pulse Rate 68 72 81 Pulse Rate [Orthostatic Lying] Pulse Rate [Orthostatic Sitting] Pulse Rate [Orthostatic Standing] Pulse Rate [Right] Respiratory Rate 16 Blood Pressure 101/42 L 102/43 L 127/61 Blood Pressure [Orthostatic Lying] Blood Pressure [Orthostatic Sitting] Blood Pressure [Orthostatic Standing] Blood Pressure [Right Arm] Blood Pressure Mean [Right Arm] Blood Pressure Position Supine 02 Sat by Pulse Oximetry 95 99 Oxygen Delivery Method Room Air Room Air Room Air Lab Data Labs: Lab Results 09/15/23 16:09: WBC 3.2 L, RBC 4.56 L, Hgb 14.0 L, Hct 41.1 L, MCV 90.2, MCH 30.8, MCHC 34.1, RDW 13.8, Plt Count 132 L, MPV 10.5 H, Neut % (Auto) 61.4, Lymph % (Auto) 28.3, [place] % (Auto) 9.0, Eos % (Auto) 0.5, Baso % (Auto) 0.8, Neut # (Auto) 1.9, Lymph # (Auto) 0.9, [place] # (Auto) 0.3, Eos # (Auto) 0.0, Baso # (Auto) 0.0, PT 10.7, INR 0.95, APTT 29.7, Sodium 138, Potassium 4.0, Chloride 105, Carbon Dioxide 22, Anion Gap 15.0, BUN 56 H, Creatinine 2.50 H, Estimated Creat Clear 24, Estimated GFR 25 L, Est GFR ( Amer) 30 L, Glucose 137 H, Calcium 9.2, Total Bilirubin 1.5 H, AST 135 H, ALT 131 H, Alkaline Phosphatase 127 H, Troponin I 0.01, C-Reactive Protein 22.3 H, NT-Pro-B Natriuret Pep 368, Total Protein 7.8, Albumin 4.3, Globulin 3.5 H, Albumin/Globulin Ratio 1.2, Procalcitonin 1.51, TSH 1.19, Thyroxine (T4) 8.8 09/15/23 16:21: VBG pH 7.39, VBG pCO2 35.9, VBG pO2 24.0 L, VBG HCO3 21.2 L, VBG Total CO2 22.3 L, VBG O2 Saturation 39.3 L, VBG Base Excess -3.8 L, VBG Lactic Acid 3.1 H 09/15/23 16:24: SARS-CoV-2 (PCR) Not detected, Influenza A Untype (PCR) Not detected, Influenza Type B (PCR) Not detected 09/15/23 16:43: Urine Color Yellow, Urine Appearance Clear, Urine pH 5.5, Ur Specific [place] >= 1.030, Urine Protein 1+, Urine Glucose (UA) Negative, Urine Ketones Negative, Urine Blood Negative, Urine Nitrate Negative, Urine Bilirubin 1+ A, Urine Urobilinogen 1.0, Ur Leukocyte Esterase Negative, Urine RBC None, Urine WBC Occasional, Ur Squamous Epith Cells Occasional, Calcium Oxalate Crystal 1+, Amorphous Sediment 2+, Urine Bacteria Trace 09/15/23 19:35: Troponin I 0.01 09/15/23 16:09 09/15/23 16:09 Response Orders (Tests/Meds): ED MEDICATIONS Generic Name Dose Route Start Last Admin Trade Name Freq PRN Reason Stop Dose Admin Acetaminophen 650 mg 09/15/23 19:48 Acetaminophen 325mg Tab PO 10/15/23 19:47 Q4HP PRN Fever or Mild Pain (1-3) Morphine Sulfate 2 mg 09/15/23 19:48 Morphine 2mg/Ml Syringe IV 10/15/23 19:47 Q2HP PRN Severe Pain (7-10) Nicotine 21 mg 09/15/23 19:48 Nicotine 21mg/24hr Patch TD 10/15/23 19:47 DAILYP PRN Nicotine Cravings Ondansetron HCl 4 mg 09/15/23 19:48 Ondansetron 4mg/2ml Vial IV 10/15/23 19:47 Q8HP PRN Nausea Pantoprazole Sodium 40 mg 09/16/23 09:00 Pantoprazole 40mg Tablet PO 10/16/23 08:59 DAILY SUSI Sodium Chloride 10 ml 09/15/23 17:13 09/15/23 17:14 Sodium Chloride 0.9% 10ml Syr (Rad Only) IV 10/15/23 17:12 10 ml NEEDED PRN Administration Maintain IV Site Discontinued Medications Generic Name Dose Route Start Last Admin Trade Name Kayode PRN Reason Stop Dose Admin Lactated Ringer's 2,260 mls @ 1,130 mls/hr 09/15/23 16:48 09/15/23 17:09 Lactated Ringer's 1000 Ml Bag 30 ml/kg infuse over 2 hr (2260 ml) 09/15/23 18:47 1,130 mls/hr IV Administration .Q2H ONE Iopamidol 80 ml 09/15/23 17:13 09/15/23 17:14 Iopamidol-370 (76%);100ml Bottle IV 09/15/23 17:14 80 ml ONCE ONE Administration Sodium Chloride 50 ml 09/15/23 17:13 09/15/23 17:14 0.9 % Sodium Chloride 50 Ml Vial IV 09/15/23 17:14 50 ml ONCE ONE Administration ORDERS Category Date Time Status CT angio abdomen pelvis Stat Cat Scan 09/15/23 16:[address] cervical spine wo con Stat Cat Scan 09/15/23 16:[address] head/brain wo con Stat Cat Scan 09/15/23 16:[address] lumbar spine wo con Stat Cat Scan 09/15/23 16:[address] thoracic spine wo con Stat Cat Scan 09/15/23 16:18 Completed CTA Chest [CT angio chest PE protocol] Stat Cat Scan 09/15/23 16:18 Taken Activated Partial Thrombo Time Stat Lab 09/15/23 16:09 Completed BNP [NT Pro Brain Natriuretic Pep.] Stat Lab 09/15/23 16:09 Completed CBC w/Auto Diff [Complete Blood Count Auto Diff] Stat Lab 09/15/23 16:09 Completed CMP [Comprehensive Metabolic Panel] Stat Lab 09/15/23 16:09 Completed CRP [C-Reactive Protein] Stat Lab 09/15/23 16:09 Completed Complete Blood Count Auto Diff AMLAB Lab 09/16/23 06:00 Ordered Comprehensive Metabolic Panel AMLAB Lab 09/16/23 06:00 Ordered Magnesium AMLAB Lab 09/16/23 06:00 Ordered Procalcitonin Stat Lab 09/15/23 16:09 Completed Prothrombin Time INR Stat Lab 09/15/23 16:09 Completed Rapid PCR Covid and Flu A/B Stat Lab 09/15/23 16:24 Completed T4 (Thyroxine) Stat Lab 09/15/23 16:09 Completed TSH [Thyroid Stimulating Hormone] Stat Lab 09/15/23 16:09 Completed Trop I [Troponin I] Stat Lab 09/15/23 16:09 Completed Troponin I Q3H Lab 09/15/23 19:35 Completed Troponin I Q3H Lab 09/15/23 22:38 Received UA [Urinalysis and Microscopic] Stat Lab 09/15/23 16:43 Completed Blood Culture Stat Micro 09/15/23 17:39 Received VBG [Venous Blood Gas] Stat RT 09/15/23 16:21 Completed ECG Data Tracing #1: Attestation: I reviewed this ECG and interpreted as documented below: ECG Narrative: Normal sinus rhythm with a ventricular rate of 78 bpm. Minimal motion artifact noted. No acute ST changes concerning for ischemia. ECG initial impression date: 09/15/23 ECG initial impression time: 16:07 MDM Narrative Medical Decision Narrative: In summary, this patient is a 83-year-old male presenting to the Emergency Department for evaluation of multiple complaints, including several days of difficulty sleeping, back pain, chest pain, shortness of breath, and multiple episodes of presyncope. Differential diagnoses considered include but are not limited to ACS, dysrhythmia, CHF exacerbation, sepsis, traumatic injury, aortic pathology, CVA. Ruling out the most morbid conditions drove assessment. It should be noted patient's history includes CAD, hypertension, hyperlipidemia which may or may not be at goal therapy. This complicates all aspects of care by increasing patient's risk for morbidity. On exam, the patient is lying in bed in no acute distress. He appears dry on clinical exam with very dry mucous membranes. He complains of multiple issues and complaints including injury, chest pain, dyspnea on exertion, and multiple episodes of presyncope. Workup included broad lab workup to evaluate for infectious, metabolic, cardiac etiology of the patient's symptoms as well as scans from head to pelvis to look for any sort of traumatic injury, aortic pathology, or other reason that he would be unable to sleep, having pain, and having multiple episodes of presyncope.. I independently interpreted CT scan prior to the radiologist read and noted no obvious fracture of the spine, no obvious aortic pathology. Please see their read for final interpretation. Labs were obtained that demonstrated ISHA and transaminitis. Patient states that has not been eating or drinking very much at all, so I feel this is likely prerenal. He is still making good urine. Chest pain workup reassuring. Patient is leukopenic with elevated lactic acid, but he is afebrile, nontachycardic, and does not have notable source of infection. He was given 30 cc/kg bolus of IV fluids which made him feel a lot better and he finally developed an appetite. Ultimately given his ISHA and multiple complaints, I feel he would benefit from admission for continued monitoring. I had an interactive discussion with the hospitalist who admitted the patient.
--- NOTE | 2023-09-15 19:50 | P.HP_ITS ---
History of Present Illness *Admission Date: 09/15/23 *Reason for visit:: Feeling very lightheaded *History of present illness: This patient is an 83-year-old male with a history of CAD, hypertension, hyperlipidemia, and chronic back pain presented to the emergency department for evaluation with multiple complaints. He states that for 5 or 6 days now, he has not been sleeping. 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 He also states that he has been feeling very lightheaded and short of breath, stating that anytime he does any sort of minimal exertion he gets very short of breath. it feels almost like when he had his prior heart attack. He notes that he nearly passes out anytime he stands up. He tried to go to his primary care office today and they sent him here for evaluation. stated has not been properly drinking enough for the past four or five days. admitted for further management. [facility] Disclaimer: The information contained in this section may have been updated after the patient was seen, as this information can be updated by other users. Medical History (Updated 09/16/23 @ 02:06 by Victor Hugo Vance APRN) Hypertension History of heart attack Social History Smoking Status: Never smoker alcohol intake: never substance use type: denies use current occupational status: retired Travel in the last 8 weeks: None household members: spouse housing: house current occupational exposures/hazards: No caffeine: Yes Review of Systems Review of Systems Review of systems:: pertinent systems reviewed and negative unless documented below Meds Home Medications and Allergies Home Medications ?Medication ?Instructions ?Recorded ?Confirmed ?Type coenzyme Q10 10 mg capsule 10 mg PO DAILY Supplement 08/28/18 09/15/23 History glucosamine sulfate 2KCl 1,000 mg 1,000 mg PO DAILY Supplement 08/28/18 09/15/23 History tablet aspirin 81 mg tablet,delayed 81 mg PO DAILY Blood thinner 06/09/20 09/15/23 History release clopidogrel 75 mg tablet See Rx Instructions .Route 08/17/23 09/15/23 Rx .COMPLEX #90 tabs bisoprolol 5 See Rx Instructions .Route 09/14/23 09/15/23 Rx mg-hydrochlorothiazide 6.25 mg .COMPLEX #90 tabs tablet losartan 100 1 tab PO DAILY 09/15/23 09/15/23 History mg-hydrochlorothiazide 25 mg tablet rosuvastatin 10 mg tablet 10 mg PO DAILY 09/15/23 09/15/23 History New Prescriptions to Start Prescriptions: Allergies Allergy/AdvReac Type Severity Reaction Status Date / Time Penicillins Allergy Verified 06/23/20 14:10 Exam Data for Last 24 hours Vital signs and Labs for Last 24 Hours: Temp Pulse Resp BP Pulse Ox O2 Del Method 99.2 F 72 18 102/43 L 99 Room Air 09/15/23 15:58 09/15/23 18:31 09/15/23 15:58 09/15/23 18:31 09/15/23 18:31 09/15/23 18:31 Laboratory Results - last 24 hr 09/15/23 16:09: WBC 3.2 L, RBC 4.56 L, Hgb 14.0 L, Hct 41.1 L, MCV 90.2, MCH 30.8, MCHC 34.1, RDW 13.8, Plt Count 132 L, MPV 10.5 H, Neut % (Auto) 61.4, Lymph % (Auto) 28.3, [place] % (Auto) 9.0, Eos % (Auto) 0.5, Baso % (Auto) 0.8, Neut # (Auto) 1.9, Lymph # (Auto) 0.9, [place] # (Auto) 0.3, Eos # (Auto) 0.0, Baso # (Auto) 0.0, PT 10.7, INR 0.95, APTT 29.7, Sodium 138, Potassium 4.0, Chloride 105, Carbon Dioxide 22, Anion Gap 15.0, BUN 56 H, Creatinine 2.50 H, Estimated Creat Clear 24, Estimated GFR 25 L, Est GFR ( Amer) 30 L, Glucose 137 H, Calcium 9.2, Total Bilirubin 1.5 H, AST 135 H, ALT 131 H, Alkaline Phosphatase 127 H, Troponin I 0.01, C-Reactive Protein 22.3 H, NT-Pro-B Natriuret Pep 368, Total Protein 7.8, Albumin 4.3, Globulin 3.5 H, Albumin/Globulin Ratio 1.2, Procalcitonin 1.51, TSH 1.19, Thyroxine (T4) 8.8 09/15/23 16:21: VBG pH 7.39, VBG pCO2 35.9, VBG pO2 24.0 L, VBG HCO3 21.2 L, VBG Total CO2 22.3 L, VBG O2 Saturation 39.3 L, VBG Base Excess -3.8 L, VBG Lactic Acid 3.1 H 09/15/23 16:24: SARS-CoV-2 (PCR) Not detected, Influenza A Untype (PCR) Not detected, Influenza Type B (PCR) Not detected 09/15/23 16:43: Urine Color Yellow, Urine Appearance Clear, Urine pH 5.5, Ur Specific [place] >= 1.030, Urine Protein 1+, Urine Glucose (UA) Negative, Urine Ketones Negative, Urine Blood Negative, Urine Nitrate Negative, Urine Bilirubin 1+ A, Urine Urobilinogen 1.0, Ur Leukocyte Esterase Negative, Urine RBC None, Urine WBC Occasional, Ur Squamous Epith Cells Occasional, Calcium Oxalate Crystal 1+, Amorphous Sediment 2+, Urine Bacteria Trace I & O for Last 24 hours: Intake & Output 09/12/23 09/13/23 09/14/23 09/15/23 23:59 23:59 23:59 23:59 Weight 78.018 kg Constitutional Constitutional: no acute distress *Routine HEENT Exam Head: Present normocephalic Eye: Present EOMI and PERRL ENT: Present mucous membranes moist *Routine Neck Exam Neck: Present supple; Absent lymphadenopathy *Routine Respiratory Exam Respiratory: Present CTA bilaterally *Routine Cardiovascular Exam Cardiovascular: Present RRR *Routine Abdominal Exam Abdominal: Present soft and normoactive bowel sounds; Absent tenderness *Routine Rectal Exam Rectal:: deferred *Routine Genitalia Exam Genitalia:: deferred *Routine Extremities Exam Extremities: Absent cyanosis, clubbing or edema *Routine Skin Exam Skin: Present warm; Absent rash *Routine Neurological Exam Neurological: Present alert and oriented X3 H&P: Result Imaging and Cardiology EKG: Status: image reviewed by me, Preliminary report and final report CT scan - chest: Status: image reviewed by me, Preliminary report and final report Assessment and Plan *Assessment and plan (1) ISHA (acute kidney injury): Status: Acute Category: Medical Code(s): N17.9 - Acute kidney failure, unspecified (2) Transaminitis: Status: Acute Category: Medical Code(s): R74.01 - Elevation of levels of liver transaminase levels (3) Hypertension: Status: Acute Qualifiers: Hypertension type: unspecified Qualified Code(s): I10 - Essential (primary) hypertension Category: Medical Code(s): I10 - Essential (primary) hypertension (4) History of heart attack: Status: Acute Category: Medical Code(s): I25.2 - Old myocardial infarction Plan 83-year-old male with a history of CAD, hypertension, hyperlipidemia, and chronic back pain presented to the emergency department for evaluatiion of lightheaded. initial work up included Labs that demonstrated ISHA and transaminitis. -ISHA, likely prerenal azotemia secondary to dehydration: transaminitis Admit patient for inpatient management Started on continuous IV fluid resuscitation. 30 cc/kg bolus given at the ER Images reviewed no acute trauma Monitor off antibiotics. Source of infection. UA pending Zofran for nausea Repeat liver enzymes in the morning CBC CMP Encourage increasing p.o. intake and hydration Monitor renal function/urinary output History of hypertension and previous heart attack Resume aspirin Plavix bisoprolol hydrochlorothiazide and statin Protonix for GI protection Full code Cardiac diet
[2023-09-15 20:08] LABS: Troponin I 0.01 ng/ml (0.00-0.034)
--- NOTE | 2023-09-15 20:16 | PC.NURSE ---
One person assist to the restroom and back to patients bed.
--- NOTE | 2023-09-15 20:26 | PC.NURSE ---
2019 Received phone report from Sophia RN/ED nurse. Patient is an 83 yo male. Diagnosis ISHA/UTI. May transport by W/C.
[2023-09-15 20:31] LABS: Reflex Lactic Add Lactic Reflex
--- NOTE | 2023-09-15 22:06 | PC.NURSE ---
pt blankets were removed and temperture was turned down on the thermostat due to pt temperature . pt was educated on why these actions were taken. call light is within reach and bed alarm is set.
[2023-09-15 22:55] LABS: Lactic Acid Follow Up (RFLX 1) 1.1 mmol/L (0.7-2.1)
[2023-09-15 23:44] LABS: Troponin I < 0.01 ng/ml (0.00-0.034)
[2023-09-16] VITALS: TEMP 38.1
[2023-09-16] MEDS: 0.9 % SODIUM CHLORIDE 1000ML 1,000 ML 75 ML IV (00:26)
[2023-09-16] MEDS: ACETAMINOPHEN 325MG TAB 650 MG PO ×2 (03:05→12:50)
[2023-09-16 04:00] VITALS: BP 117/55; PULSE 61; RESP 26; TEMP 36.6; O2SAT 94; BMI 24.0
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
[2023-09-16 06:56] LABS: Albumin Level 3.1 g/dl (3.5-5.0); Chloride 107 mmol/L (98-107); Potassium 3.7 mmoL/L (3.5-5.1); Sodium 134 mmol/L (136-145)
[2023-09-16 06:59] LABS: Alanine Aminotransferase 90 U/L (12-78); Albumin/Globulin Ratio 1.2 (1.1-1.8); Alkaline Phosphatase 122 U/L (38-126); Anion Gap 6.7 mEq/L (5-15); Aspartate Amino Transferase 98 U/L (17-59); Blood Urea Nitrogen 43 mg/dl (9-20); Carbon Dioxide 24 mmol/L (22.0-30.0); Creatinine Clearance Estimated 40 mL/min (50-200); Estimated Glomerular Filt Rate 45 ml/min (>60); GFR (African American) 54 ML/MIN (>60); Globulin 2.6 g/dL (1.3-3.2); Total Protein,Serum 5.7 g/dl (6.3-8.2)
[2023-09-16 07:00] LABS: Calcium 7.8 mg/dl (8.4-10.2); Glucose 102 mg/dl (74-100)
[2023-09-16 07:03] LABS: Monocytes # 0.2 K/mm3 (0.1-1.0); Red Cell Distribution Width 13.7 % (11.5-17.5)
[2023-09-16 07:10] LABS: Basophils % 1.5 % (0.1-2.0); Hematocrit 31.6 % (42.0-52.0); Lymphocytes # 0.9 K/mm3 (0.7-4.5); Lymphocytes % 38.4 % (10-50); Mean Corpuscular HGB Conc 34.6 g/dL (31.8-35.4); Mean Corpuscular Hemoglobin 30.7 pg (27.0-31.2); Mean Corpuscular Volume 88.6 fl (80-94); Mean Platelet Volume 9.1 fl (7.4-10.4); Monocytes % 9.2 % (1.7-9.3); Neutrophils # 1.2 K/mm3 (1.8-7.8); Neutrophils % 50.9 % (37.0-80.0); Platelet Count 101 K/mm3 (142-424); Red Blood Count 3.57 M/mm3 (4.60-6.20); White Blood Count 2.3 K/mm3 (4.8-10.8)
[2023-09-16 07:11] LABS: Hemoglobin 10.9 g/dL (14.1-18.0)
[2023-09-16 08:00] VITALS: BP 114/46; PULSE 60; RESP 16; TEMP 37; O2SAT 98
[2023-09-16] MEDS: ASPIRIN EC 81MG TABLET 81 MG PO (08:55)
[2023-09-16] MEDS: CLOPIDOGREL 75MG TAB 75 MG PO (08:56)
[2023-09-16] MEDS: 0.9 % SODIUM CHLORIDE 1000ML 500 ML 999 ML IV (10:07)
--- NOTE | 2023-09-16 13:33 | EXP.DC.SUM ---
General Admission date:: 09/15/23 Discharge date: 09/16/23 HPI HPI HPI: This patient is an 83-year-old male with a history of CAD, hypertension, hyperlipidemia, and chronic back pain presented to the emergency department for evaluation with multiple complaints. He states that for 5 or 6 days now, he has not been sleeping. 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 He also states that he has been feeling very lightheaded and short of breath, stating that anytime he does any sort of minimal exertion he gets very short of breath. it feels almost like when he had his prior heart attack. He notes that he nearly passes out anytime he stands up. He tried to go to his primary care office today and they sent him here for evaluation. stated has not been properly drinking enough for the past four or five days. admitted for further management. Hospital Course Hospital Course Hospital Course: 83-year-old male with a history of CAD, hypertension, hyperlipidemia, and chronic back pain presented to the emergency department for evaluatiion of lightheaded. initial work up included Labs that demonstrated ISHA and transaminitis. -ISHA, likely prerenal azotemia secondary to dehydration:, transaminitis improved after hydration, patient felt back to baseline after hydration with normal saline, patient is requesting to be discharged and denied any concerns and is going to follow up with his PCP, On the date of discharge, the patient reported feeling stable. The patient was found not to be in any acute distress, and no new abnormalities on physical examination. Further, the patient expressed appropriate understanding of, and agreement with, the discharge recommendations, medications, and plan. Time spent 37 mins Exam Data for Last 24 hours Vital signs and Labs for Last 24 Hours: Temp Pulse Resp BP Pulse Ox O2 Del Method 98.6 F 60 16 114/46 L 98 Room Air 09/16/23 08:00 09/16/23 08:00 09/16/23 08:00 09/16/23 08:00 09/16/23 08:00 09/16/23 13:00 Laboratory Results - last 24 hr 09/15/23 16:09: WBC 3.2 L, RBC 4.56 L, Hgb 14.0 L, Hct 41.1 L, MCV 90.2, MCH 30.8, MCHC 34.1, RDW 13.8, Plt Count 132 L, MPV 10.5 H, Neut % (Auto) 61.4, Lymph % (Auto) 28.3, [place] % (Auto) 9.0, Eos % (Auto) 0.5, Baso % (Auto) 0.8, Neut # (Auto) 1.9, Lymph # (Auto) 0.9, [place] # (Auto) 0.3, Eos # (Auto) 0.0, Baso # (Auto) 0.0, PT 10.7, INR 0.95, APTT 29.7, Sodium 138, Potassium 4.0, Chloride 105, Carbon Dioxide 22, Anion Gap 15.0, BUN 56 H, Creatinine 2.50 H, Estimated Creat Clear 24, Estimated GFR 25 L, Est GFR ( Amer) 30 L, Glucose 137 H, Calcium 9.2, Total Bilirubin 1.5 H, AST 135 H, ALT 131 H, Alkaline Phosphatase 127 H, Troponin I 0.01, C-Reactive Protein 22.3 H, NT-Pro-B Natriuret Pep 368, Total Protein 7.8, Albumin 4.3, Globulin 3.5 H, Albumin/Globulin Ratio 1.2, Procalcitonin 1.51, TSH 1.19, Thyroxine (T4) 8.8 09/15/23 16:21: VBG pH 7.39, VBG pCO2 35.9, VBG pO2 24.0 L, VBG HCO3 21.2 L, VBG Total CO2 22.3 L, VBG O2 Saturation 39.3 L, VBG Base Excess -3.8 L, VBG Lactic Acid 3.1 H 09/15/23 16:24: SARS-CoV-2 (PCR) Not detected, Influenza A Untype (PCR) Not detected, Influenza Type B (PCR) Not detected 09/15/23 16:43: Urine Color Yellow, Urine Appearance Clear, Urine pH 5.5, Ur Specific [place] >= 1.030, Urine Protein 1+, Urine Glucose (UA) Negative, Urine Ketones Negative, Urine Blood Negative, Urine Nitrate Negative, Urine Bilirubin 1+ A, Urine Urobilinogen 1.0, Ur Leukocyte Esterase Negative, Urine RBC None, Urine WBC Occasional, Ur Squamous Epith Cells Occasional, Calcium Oxalate Crystal 1+, Amorphous Sediment 2+, Urine Bacteria Trace 09/15/23 19:35: Troponin I 0.01 09/15/23 21:35: Lactate 1.1 09/15/23 22:38: Troponin I < 0.01 09/16/23 06:25: WBC 2.3 L D, RBC 3.57 L, Hgb 10.9 L D, Hct 31.6 L, MCV 88.6, MCH 30.7, MCHC 34.6, RDW 13.7, Plt Count 101 L, MPV 9.1, Neut % (Auto) 50.9, Lymph % (Auto) 38.4, [place] % (Auto) 9.2, Eos % (Auto) 0.0 L, Baso % (Auto) 1.5, Neut # (Auto) 1.2 L, Lymph # (Auto) 0.9, [place] # (Auto) 0.2, Eos # (Auto) 0.0, Baso # (Auto) 0.0, Sodium 134 L, Potassium 3.7, Chloride 107, Carbon Dioxide 24, Anion Gap 6.7, BUN 43 H, Creatinine 1.50 H D, Estimated Creat Clear 40, Estimated GFR 45 L, Est GFR ( Amer) 54 L D, Glucose 102 H D, Calcium 7.8 L, Magnesium 2.0, Total Bilirubin 1.0, AST 98 H D, ALT 90 H D, Alkaline Phosphatase 122, Total Protein 5.7 L D, Albumin 3.1 L D, Globulin 2.6, Albumin/Globulin Ratio 1.2 I & O for Last 24 hours: Intake & Output 09/13/23 09/14/23 09/15/23 09/16/23 23:59 23:59 23:59 23:59 Intake Total 1397 / 1397 Output Total 100 / 300 1050 / 1050 Balance -100 / 140 347 / 347 Weight 76.345 kg 78.075 kg Constitutional Constitutional: no acute distress *Routine HEENT Exam Head: Present normocephalic Eye: Present EOMI and PERRL ENT: Present mucous membranes moist *Routine Neck Exam Neck: Present supple; Absent lymphadenopathy *Routine Respiratory Exam Respiratory: Present CTA bilaterally *Routine Cardiovascular Exam Cardiovascular: Present RRR *Routine Abdominal Exam Abdominal: Present soft and normoactive bowel sounds; Absent tenderness *Routine Extremities Exam Extremities: Absent cyanosis, clubbing or edema *Routine Skin Exam Skin: Present warm; Absent rash *Routine Neurological Exam Neurological: Present alert and oriented X3 Results Data Completed and Pending Labs on day of discharge: Labs from last 24 hours 09/16/23 09/15/23 09/15/23 06:25 22:38 21:35 WBC 2.3 L D RBC 3.57 L Hgb 10.9 L D Hct 31.6 L MCV 88.6 MCH 30.7 MCHC 34.6 RDW 13.7 Plt Count 101 L MPV 9.1 Neut % (Auto) 50.9 Lymph % (Auto) 38.4 [place] % (Auto) 9.2 Eos % (Auto) 0.0 L Baso % (Auto) 1.5 Neut # (Auto) 1.2 L Lymph # (Auto) 0.9 [place] # (Auto) 0.2 Eos # (Auto) 0.0 Baso # (Auto) 0.0 PT INR APTT VBG pH VBG pCO2 VBG pO2 VBG HCO3 VBG Total CO2 VBG O2 Saturation VBG Base Excess VBG Lactic Acid Sodium 134 L Potassium 3.7 Chloride 107 Carbon Dioxide 24 Anion Gap 6.7 BUN 43 H Creatinine 1.50 H D Estimated Creat Clear 40 Estimated GFR 45 L Est GFR ( Amer) 54 L D Glucose 102 H D Lactate 1.1 Calcium 7.8 L Magnesium 2.0 Total Bilirubin 1.0 AST 98 H D ALT 90 H D Alkaline Phosphatase 122 Troponin I < 0.01 C-Reactive Protein NT-Pro-B Natriuret Pep Total Protein 5.7 L D Albumin 3.1 L D Globulin 2.6 Albumin/Globulin Ratio 1.2 Procalcitonin TSH Thyroxine (T4) Urine Color Urine Appearance Urine pH Ur Specific [place] Urine Protein Urine Glucose (UA) Urine Ketones Urine Blood Urine Nitrate Urine Bilirubin Urine Urobilinogen Ur Leukocyte Esterase Urine RBC Urine WBC Ur Squamous Epith Cells Calcium Oxalate Crystal Amorphous Sediment Urine Bacteria SARS-CoV-2 (PCR) Influenza A Untype (PCR) Influenza Type B (PCR) 09/15/23 09/15/23 09/15/23 19:35 16:43 16:24 WBC RBC Hgb Hct MCV MCH MCHC RDW Plt Count MPV Neut % (Auto) Lymph % (Auto) [place] % (Auto) Eos % (Auto) Baso % (Auto) Neut # (Auto) Lymph # (Auto) [place] # (Auto) Eos # (Auto) Baso # (Auto) PT INR APTT VBG pH VBG pCO2 VBG pO2 VBG HCO3 VBG Total CO2 VBG O2 Saturation VBG Base Excess VBG Lactic Acid Sodium Potassium Chloride Carbon Dioxide Anion Gap BUN Creatinine Estimated Creat Clear Estimated GFR Est GFR ( Amer) Glucose Lactate Calcium Magnesium Total Bilirubin AST ALT Alkaline Phosphatase Troponin I 0.01 C-Reactive Protein NT-Pro-B Natriuret Pep Total Protein Albumin Globulin Albumin/Globulin Ratio Procalcitonin TSH Thyroxine (T4) Urine Color Yellow Urine Appearance Clear Urine pH 5.5 Ur Specific [place] >= 1.030 Urine Protein 1+ Urine Glucose (UA) Negative Urine Ketones Negative Urine Blood Negative Urine Nitrate Negative Urine Bilirubin 1+ A Urine Urobilinogen 1.0 Ur Leukocyte Esterase Negative Urine RBC None Urine WBC Occasional Ur Squamous Epith Cells Occasional Calcium Oxalate Crystal 1+ Amorphous Sediment 2+ Urine Bacteria Trace SARS-CoV-2 (PCR) Not detected Influenza A Untype (PCR) Not detected Influenza Type B (PCR) Not detected 09/15/23 09/15/23 16:21 16:09 WBC 3.2 L RBC 4.56 L Hgb 14.0 L Hct 41.1 L MCV 90.2 MCH 30.8 MCHC 34.1 RDW 13.8 Plt Count 132 L MPV 10.5 H Neut % (Auto) 61.4 Lymph % (Auto) 28.3 [place] % (Auto) 9.0 Eos % (Auto) 0.5 Baso % (Auto) 0.8 Neut # (Auto) 1.9 Lymph # (Auto) 0.9 [place] # (Auto) 0.3 Eos # (Auto) 0.0 Baso # (Auto) 0.0 PT 10.7 INR 0.95 APTT 29.7 VBG pH 7.39 VBG pCO2 35.9 VBG pO2 24.0 L VBG HCO3 21.2 L VBG Total CO2 22.3 L VBG O2 Saturation 39.3 L VBG Base Excess -3.8 L VBG Lactic Acid 3.1 H Sodium 138 Potassium 4.0 Chloride 105 Carbon Dioxide 22 Anion Gap 15.0 BUN 56 H Creatinine 2.50 H Estimated Creat Clear 24 Estimated GFR 25 L Est GFR ( Amer) 30 L Glucose 137 H Lactate Calcium 9.2 Magnesium Total Bilirubin 1.5 H AST 135 H ALT 131 H Alkaline Phosphatase 127 H Troponin I 0.01 C-Reactive Protein 22.3 H NT-Pro-B Natriuret Pep 368 Total Protein 7.8 Albumin 4.3 Globulin 3.5 H Albumin/Globulin Ratio 1.2 Procalcitonin 1.51 TSH 1.19 Thyroxine (T4) 8.8 Urine Color Urine Appearance Urine pH Ur Specific [place] Urine Protein Urine Glucose (UA) Urine Ketones Urine Blood Urine Nitrate Urine Bilirubin Urine Urobilinogen Ur Leukocyte Esterase Urine RBC Urine WBC Ur Squamous Epith Cells Calcium Oxalate Crystal Amorphous Sediment Urine Bacteria SARS-CoV-2 (PCR) Influenza A Untype (PCR) Influenza Type B (PCR) DS: Diagnosis Discharge Diagnosis (1) ISHA (acute kidney injury): Status: Acute Code(s): N17.9 - Acute kidney failure, unspecified (2) Transaminitis: Status: Acute Code(s): R74.01 - Elevation of levels of liver transaminase levels (3) Hypertension: Status: Acute Code(s): I10 - Essential (primary) hypertension Qualifiers: Hypertension type: unspecified Qualified Code(s): I10 - Essential (primary) hypertension (4) History of heart attack: Status: Acute Code(s): I25.2 - Old myocardial infarction Meds Home Medications and Allergies Home Medications ?Medication ?Instructions ?Recorded ?Confirmed ?Type coenzyme Q10 10 mg capsule 10 mg PO DAILY Supplement 08/28/18 09/15/23 History glucosamine sulfate 2KCl 1,000 mg 1,000 mg PO DAILY Supplement 08/28/18 09/15/23 History tablet aspirin 81 mg tablet,delayed 81 mg PO DAILY 06/09/20 09/15/23 History release losartan 100 1 tab PO DAILY 09/15/23 09/15/23 History mg-hydrochlorothiazide 25 mg tablet rosuvastatin 10 mg tablet 10 mg PO DAILY 09/15/23 09/15/23 History bisoprolol 5 1 tab PO DAILY 09/16/23 09/16/23 History mg-hydrochlorothiazide 6.25 mg tablet clopidogrel 75 mg tablet 75 mg PO DAILY 09/16/23 09/16/23 History New Prescriptions to Start Prescriptions: Allergies Allergy/AdvReac Type Severity Reaction Status Date / Time Penicillins Allergy Verified 06/23/20 14:10 Discharge Plan Disposition Patient Disposition: Home, Self-Care Condition: Good Follow up Plan Follow up with: Israel Ugalde MD [Primary Care Provider] - 09/22/23 2:30 pm Prescriptions/Medication Reconciliation: Continued coenzyme Q10 10 MG capsule 10 mg PO DAILY glucosamine sulfate 2KCl 1,000 MG tablet 1,000 mg PO DAILY rosuvastatin 10 mg tablet 10 mg PO DAILY aspirin 81 MG tablet,delayed release (DR/EC) 81 mg PO DAILY Held losartan-hydrochlorothiazide 100-25 mg tablet 1 tab PO DAILY Hold Instructions: Resume on 09/18/23. bisoprolol-hydrochlorothiazide 5-6.25 mg tablet 1 tab PO DAILY Hold Instructions: Resume on 09/18/23. Rx Instructions: TAKE 1 TABLET BY MOUTH ONCE DAILY clopidogrel 75 mg tablet 75 mg PO DAILY Hold Instructions: Resume on 09/18/23. Rx Instructions: TAKE 1 TABLET BY MOUTH ONCE DAILY Problem Reconciliation Problems Reviewed?: Yes Patient Discharge Instructions ACTIVITY: Continue current activity DIET: continue same diet Patient Instructions: DI for Acute Kidney Injury Print Language: Amharic Providers Primary Care Provider: Israel Ugalde Admit Provider: Desmond Chen Attending Provider: Desmond Chen
--- NOTE | 2023-09-19 14:58 | CARE MANAGER ---
Called and spoke with patient regarding recent discharge. Patient stated that he is doing well, and was aware of scheduled f/u appt. No concerns voiced at time of call.
== END 2023-09-16 14:43 | disposition home or self-care (01) ==
LOC: ER 17:20 → 2ND 19:51
PROVIDERS: Nurse Practitioner Family; Admitting Provider Internal Medicine; Emergency Provider Emergency Medicine; PCP Internal Medicine; Visit Provider Internal Medicine
DX: R06.00 Dyspnea, unspecified (principal); N17.9 Acute kidney failure, unspecified; I25.10 Atherosclerotic heart disease of native coronary artery without angina pectoris; I10 Essential (primary) hypertension; E78.5 Hyperlipidemia, unspecified; R74.01 Elevation of levels of liver transaminase levels; I25.2 Old myocardial infarction; E86.0 Dehydration; Z79.899 Other long term (current) drug therapy
CPT/HCPCS: 36415; 70450; 71275; 72125; 72128; 72131; 74174; 80053; 81001; 82803; 83605; 83735; 83880; 84145; 84436; 84443; 84484; 85025; 85610; 85730; 86140; 87040; 87636; 93005; 99285; G0378; J7120; Q9967

== ENCOUNTER 2023-09-22 11:10 | Outpatient (CLI) | payer MEDICARE, SELFPAY ==
[2023-09-22 17:28] LABS: Basophils % 0.6 % (0.1-2.0); Eosinophils # 0.2 K/mm3 (0.0-0.4); Eosinophils % 3.8 % (0.1-12.0); Hematocrit 33.5 % (42.0-52.0); Hemoglobin 10.8 g/dL (14.1-18.0); Lymphocytes # 1.9 K/mm3 (0.7-4.5); Lymphocytes % 32.5 % (10-50); Mean Corpuscular HGB Conc 32.1 g/dL (31.8-35.4); Mean Corpuscular Hemoglobin 30.8 pg (27.0-31.2); Mean Corpuscular Volume 95.8 fl (80-94); Mean Platelet Volume 8.5 fl (7.4-10.4); Monocytes # 0.5 K/mm3 (0.1-1.0); Monocytes % 8.6 % (1.7-9.3); Neutrophils # 3.3 K/mm3 (1.8-7.8); Neutrophils % 54.5 % (37.0-80.0); Platelet Count 409 K/mm3 (142-424); Red Cell Distribution Width 13.8 % (11.5-17.5)
[2023-09-22 18:08] LABS: Alanine Aminotransferase 148 U/L (12-78); Albumin Level 3.3 g/dl (3.5-5.0); Albumin/Globulin Ratio 1.2 (1.1-1.8); Alkaline Phosphatase 95 U/L (38-126); Anion Gap 10.4 mEq/L (5-15); Aspartate Amino Transferase 77 U/L (17-59); Bilirubin,Total 0.6 mg/dl (0.2-1.3); Blood Urea Nitrogen 19 mg/dl (9-20); Calcium 8.4 mg/dl (8.4-10.2); Carbon Dioxide 25 mmol/L (22.0-30.0); Chloride 109 mmol/L (98-107); Estimated Glomerular Filt Rate 80 ml/min (>60); GFR (African American) 97 ML/MIN (>60); Globulin 2.8 g/dL (1.3-3.2); Glucose 103 mg/dl (74-100); Potassium 4.4 mmoL/L (3.5-5.1); Sodium 140 mmol/L (136-145); Total Protein,Serum 6.1 g/dl (6.3-8.2)
== END 2023-09-22 23:59 | disposition home or self-care (01) ==
LOC: LAB.DROPOF 09-26 11:11
PROVIDERS: PCP Internal Medicine; Visit Provider Internal Medicine
DX: D64.9 Anemia, unspecified (principal); R74.01 Elevation of levels of liver transaminase levels; I10 Essential (primary) hypertension; N17.9 Acute kidney failure, unspecified
CPT/HCPCS: 80053; 85025

== ENCOUNTER 2023-10-27 16:20 | Outpatient (CLI) | payer MEDICARE, SELFPAY ==
[2023-10-27 17:46] LABS: Erythrocyte Sedimentation Rate 113 mm/hr (0-20)
[2023-10-27 18:32] LABS: Alanine Aminotransferase 32 U/L (12-78); Albumin Level 3.8 g/dl (3.5-5.0); Albumin/Globulin Ratio 1.4 (1.1-1.8); Alkaline Phosphatase 53 U/L (38-126); Aspartate Amino Transferase 27 U/L (17-59); Bilirubin,Total 0.6 mg/dl (0.2-1.3); Blood Urea Nitrogen 22 mg/dl (9-20); Calcium 9.2 mg/dl (8.4-10.2); Carbon Dioxide 20 mmol/L (22.0-30.0); Chloride 108 mmol/L (98-107); Estimated Glomerular Filt Rate 58 ml/min (>60); GFR (African American) 70 ML/MIN (>60); Globulin 2.8 g/dL (1.3-3.2); Glucose 58 mg/dl (74-100); Magnesium 2.1 mg/dl (1.6-2.3); Sodium 136 mmol/L (136-145); Total Protein,Serum 6.6 g/dl (6.3-8.2)
[2023-10-27 19:00] LABS: Thyroid Stimulating Hormone 0.53 uIU/mL (0.465-4.68)
[2023-10-27 19:19] LABS: Vitamin B12 420 pg/mL (239-931)
[2023-10-27 20:53] LABS: Free T4 (Free Thyroxine) 1.07 ng/dl (0.78-2.19)
[2023-10-28 13:04] LABS: MANUAL DIFFERENTIAL MANUAL DIFFERENTIAL (MANUAL DIFF)
[2023-10-28 13:09] LABS: Basophils % 0.6 % (0.1-2.0); Eosinophils # 0.2 K/mm3 (0.0-0.4); Eosinophils % 3.4 % (0.1-12.0); Hemoglobin 9.1 g/dL (14.1-18.0); Lymphocytes # 1.6 K/mm3 (0.7-4.5); Lymphocytes % 28.5 % (10-50); Mean Corpuscular HGB Conc 31.6 g/dL (31.8-35.4); Mean Corpuscular Hemoglobin 30.4 pg (27.0-31.2); Mean Corpuscular Volume 96.4 fl (80-94); Mean Platelet Volume 10.1 fl (7.4-10.4); Monocytes # 0.4 K/mm3 (0.1-1.0); Monocytes % 7.2 % (1.7-9.3); Neutrophils # 3.4 K/mm3 (1.8-7.8); Neutrophils % 60.3 % (37.0-80.0); Platelet Count 231 K/mm3 (142-424); Red Blood Count 3.01 M/mm3 (4.60-6.20); Red Cell Distribution Width 13.4 % (11.5-17.5); White Blood Count 5.6 K/mm3 (4.8-10.8)
[2023-10-28 14:14] LABS: Eosinophils % 3 % (0-3); Lymphocytes % 30 % (10-50); Monocytes % 6 % (2-9); Neutrophils % 61 % (42-76); Total Cells Counted 100
[2023-10-28 14:15] LABS: Platelet Estimate Normal; RBC Morphology Normal
[2023-10-29 12:14] LABS: Rapid Plasma Reagin Ab Titer Non Reactive titer (NonRea<1:1)
[2023-10-30 12:51] LABS: Peripheral Smear Review Scanned Result
[2023-10-31 15:13] LABS: Erythropoietin 12.8 mIU/mL (2.6-18.5)
== END 2023-10-27 23:59 | disposition home or self-care (01) ==
LOC: LAB.DROPOF 16:21
PROVIDERS: PCP Internal Medicine; Visit Provider Internal Medicine
DX: F03.90 Unspecified dementia, unspecified severity, without behavioral disturbance, psychotic disturbance, mood disturbance, and anxiety (principal); R74.8 Abnormal levels of other serum enzymes; R25.2 Cramp and spasm; M19.90 Unspecified osteoarthritis, unspecified site; D75.1 Secondary polycythemia; D69.6 Thrombocytopenia, unspecified; D72.819 Decreased white blood cell count, unspecified
CPT/HCPCS: 80053; 82607; 82668; 83735; 84439; 84443; 84550; 85007; 85014; 85018; 85025; 85048; 85049; 85651; 86593

== ENCOUNTER 2023-11-07 11:32 | Outpatient (CLI) | payer MEDICARE, SELFPAY ==
--- NOTE | 2023-11-07 11:48 | XR_ITS ---
FINAL REPORT CLINICAL HISTORY: Left lateral foot pain at base of fifth toe FINDINGS: Left foot Three views were obtained. There is no acute fracture or dislocation. There is a moderate plantar spur. There are hypertrophic changes of the medial and lateral malleoli. IMPRESSION: No acute process. Reviewed, Interpreted and Dictated by Frederick Hernandez MD Transcribed by Christina Sloan Authenticated and [facility]
[2023-11-07 13:34] LABS: Reticulocyte % (Auto) 1.7 % (0.9-3.2)
[2023-11-07 15:05] LABS: Iron 91 ug/dL (49-181)
[2023-11-07 15:15] LABS: Total Iron Binding Capacity 298 ug/dL (261-462)
[2023-11-08 10:26] LABS: Hematocrit 38.2 % (42.0-52.0)
== END 2023-11-07 23:59 | disposition home or self-care (01) ==
LOC: RAD 11:36
PROVIDERS: PCP Internal Medicine; Visit Provider Internal Medicine
DX: M79.672 Pain in left foot (principal); D64.9 Anemia, unspecified
CPT/HCPCS: 73630; 82746; 83540; 83550; 85014; 85044

== ENCOUNTER 2023-11-07 14:42 | Outpatient (CLI) | payer MEDICARE, SELFPAY | END 2023-11-07 23:59 | disposition home or self-care (01) | LOC: LAB.DROPOF 14:42 | PROVIDERS: PCP Internal Medicine; Visit Provider Internal Medicine | DX: Z02.9 Encounter for administrative examinations, unspecified (principal) ==

== ENCOUNTER 2023-11-09 11:49 | Outpatient (CLI) | payer MEDICARE, SELFPAY ==
[2023-11-09 15:55] LABS: Occult Blood,Stool Negative (Negative)
== END 2023-11-09 23:59 | disposition home or self-care (01) ==
LOC: LAB 11:50
PROVIDERS: PCP Internal Medicine; Visit Provider Internal Medicine
DX: D64.9 Anemia, unspecified (principal)
CPT/HCPCS: 82272; G0328

== ENCOUNTER 2024-04-16 12:30 | Outpatient (CLI) | payer MEDICARE, SELFPAY ==
[2024-04-16 17:45] LABS: Basophils % 0.3 % (0.1-2.0); Eosinophils # 0.2 K/mm3 (0.0-0.4); Eosinophils % 3.3 % (0.1-12.0); Hematocrit 39.2 % (42.0-52.0); Hemoglobin 13.1 g/dL (14.1-18.0); Lymphocytes # 1.5 K/mm3 (0.7-4.5); Lymphocytes % 25.1 % (10-50); Mean Corpuscular HGB Conc 33.4 g/dL (31.8-35.4); Mean Corpuscular Hemoglobin 29.4 pg (27.0-31.2); Mean Corpuscular Volume 88.1 fl (80-94); Mean Platelet Volume 11.6 fl (7.4-10.4); Monocytes # 0.6 K/mm3 (0.1-1.0); Monocytes % 9.9 % (1.7-9.3); Neutrophils # 3.5 K/mm3 (1.8-7.8); Neutrophils % 60.9 % (37.0-80.0); Platelet Count 178 K/mm3 (142-424); Red Blood Count 4.45 M/mm3 (4.60-6.20); Red Cell Distribution Width 12.1 % (11.5-17.5); White Blood Count 5.8 K/mm3 (4.8-10.8)
[2024-04-16 18:20] LABS: Albumin Level 4.7 g/dl (3.5-5.0); Chloride 103 mmol/L (98-107); Potassium 5.3 mmoL/L (3.5-5.1); Sodium 138 mmol/L (136-145)
[2024-04-16 18:23] LABS: Alanine Aminotransferase 30 U/L (12-78); Albumin/Globulin Ratio 1.7 (1.1-1.8); Alkaline Phosphatase 82 U/L (38-126); Anion Gap 12.3 mEq/L (5-15); Aspartate Amino Transferase 29 U/L (17-59); Bilirubin,Total 0.9 mg/dl (0.2-1.3); Blood Urea Nitrogen 25 mg/dl (9-20); Calcium 9.9 mg/dl (8.4-10.2); Carbon Dioxide 28 mmol/L (22.0-30.0); Cholesterol 108 mg/dl (140-200); Estimated Glomerular Filt Rate 64 ml/min (>60); GFR (African American) 77 ML/MIN (>60); Globulin 2.7 g/dL (1.3-3.2); Glucose 92 mg/dl (74-100); Total Protein,Serum 7.4 g/dl (6.3-8.2); Triglycerides 150 mg/dl (30-150); VLDL Cholesterol 30 mg/dL (0-40)
[2024-04-16 18:24] LABS: Chol/HDL Ratio 2.8 (1-3.5); HDL Cholesterol 38 mg/dl (40-60)
[2024-04-16 18:35] LABS: Direct LDL Cholesterol 38.64 mg/dL (100-129)
[2024-04-16 19:47] LABS: Prostate Specific Ag Screen 1.2 ng/ml (0.0-4.0)
== END 2024-04-16 23:59 | disposition home or self-care (01) ==
LOC: LAB.DROPOF 04-17 09:18
PROVIDERS: PCP Internal Medicine; Visit Provider Internal Medicine
DX: D64.9 Anemia, unspecified (principal); Z12.5 Encounter for screening for malignant neoplasm of prostate; I10 Essential (primary) hypertension; E78.5 Hyperlipidemia, unspecified
CPT/HCPCS: 80053; 80061; 85025; G0103

== ENCOUNTER 2024-06-11 15:53 | Emergency (ER) | payer MEDICARE, SELFPAY ==
[2024-06-11 16:07] VITALS: BP 153/70; PULSE 62; RESP 18; TEMP 37; O2SAT 98; BMI 22.3
--- NOTE | 2024-06-11 16:15 | XR_ITS ---
PROCEDURE INFORMATION: Exam: XR Right Ribs with PA Chest Exam date and time: 06/11/2024 4:27 PM Age: 83 years old Clinical indication: Other: Right rib pain TECHNIQUE: Imaging protocol: Radiologic exam of the right ribs with PA chest. Views: 3 views COMPARISON: No relevant prior studies available. FINDINGS: Lungs: Unremarkable. No consolidation. Pleural spaces: Unremarkable. No pleural effusion. No pneumothorax. Heart/Mediastinum: Unremarkable. No cardiomegaly. Bones/joints: Unremarkable. No acute fracture identified. IMPRESSION: No acute findings.
[2024-06-11] MEDS: LIDOCAINE 5% TRANSDERMAL PATCH 1 EACH TD (16:42)
--- NOTE | 2024-06-11 16:43 | HMH.EDGENADL ---
Discharge Plan Disposition Patient Disposition: Home, Self-Care Prescriptions Prescriptions: New lidocaine 5 % adhesive patch,medicated 1 patch topical DAILY Qty: 30 0RF Rx Instructions: leave on most painful area for up to 12 hrs No Action citalopram 10 mg tablet 10 mg PO DAILY Qty: 30 5RF losartan-hydrochlorothiazide 100-25 mg tablet See Rx Instructions .ROUTE .COMPLEX Qty: 90 1RF Dose Instruction: TAKE 1 TABLET BY MOUTH ONCE DAILY Rx Instructions: TAKE 1 TABLET BY MOUTH ONCE DAILY bisoprolol-hydrochlorothiazide 5-6.25 mg tablet See Rx Instructions .ROUTE .COMPLEX Qty: 90 1RF Dose Instruction: TAKE 1 TABLET BY MOUTH ONCE DAILY Rx Instructions: TAKE 1 TABLET BY MOUTH ONCE DAILY clopidogrel 75 mg tablet 75 mg PO DAILY Qty: 90 1RF Rx Instructions: TAKE 1 TABLET BY MOUTH ONCE DAILY rosuvastatin 10 mg tablet 10 mg PO DAILY Qty: 90 1RF coenzyme Q10 10 MG capsule 10 mg PO DAILY glucosamine sulfate 2KCl 1,000 MG tablet 1,000 mg PO DAILY aspirin 81 MG tablet,delayed release (DR/EC) 81 mg PO DAILY Referrals Follow up/Referrals: Israel Ugalde MD [Primary Care Provider] - See instructions Activity Restrictions/Add. Instructions Additional Instructions/Restrictions: Call your family doctor to establish care for this visit to the emergency department and schedule follow-up within 48 hours to ensure improvement. If you have any worsening of your condition or any other concerning signs or symptoms, return to the emergency department or your primary care doctor for further evaluation. Lidocaine patch every 12-24 hours as needed. Clinical Impressions Clinical Impression: Rib pain on right side Print Language Print Language: Sami Discharge ED Provider: Seferino Lobo General Adult HPI General Chief complaint: PAIN Stated complaint: AO 06/11/24 1300, fell, inj right ribs Time Seen by Provider: 06/11/24 16:01 Mode of Arrival: Ambulatory Source of Information: Patient Description of Symptoms (Recalled from ER Triage Doc. by RN): Pt presents for evaluation of right rib pain after a fall. Pt fell down sideways down 2 steps at his sikh. Pt states he landed on his right side. Denies hitting his head, denies LOC/BT. Pt states he believes he broke a rib or two . Pain is a 4/10, Pain is an 8/10 with movement. History of Present Illness HPI narrative: Please note that above description of symptoms, in this electronic medical record under categorization of recalled from ER triage doctor by RN are reflective of an initial nursing assessment, however, is not reflective of my full history and physical exam that was personally taken and clarified. Consequentially, this preceding description of symptoms, which may include the patient's categorized chief complaint in the EMR, do not reflect my personal clinical impression, and the ultimate description of history of present illness and patient stated complaints should be deferred to this section of the note. Unless stated otherwise or congruent with this section of the note, additional signs, symptoms, or incongruence should be interpreted as inaccurate with my clinical impression. Related Data Home Medications ?Medication ?Instructions ?Recorded ?Confirmed coenzyme Q10 10 mg capsule 10 mg PO DAILY Supplement 08/28/18 06/11/24 glucosamine sulfate 2KCl 1,000 mg 1,000 mg PO DAILY Supplement 08/28/18 06/11/24 tablet aspirin 81 mg tablet,delayed 81 mg PO DAILY 06/09/20 06/11/24 release Previous Rx's ?Medication ?Instructions ?Recorded citalopram 10 mg tablet 10 mg PO DAILY #30 tabs 09/29/23 losartan 100 See Rx Instructions .Route 01/09/24 mg-hydrochlorothiazide 25 mg tablet .COMPLEX #90 tabs bisoprolol 5 See Rx Instructions .Route 01/17/24 mg-hydrochlorothiazide 6.25 mg .COMPLEX #90 tabs tablet clopidogrel 75 mg tablet 75 mg PO DAILY #90 tabs 03/06/24 rosuvastatin 10 mg tablet 10 mg PO DAILY #90 tabs 05/17/24 lidocaine 5 % topical patch 1 patch topical DAILY #30 ea 06/11/24 Allergies Allergy/AdvReac Type Severity Reaction Status Date / Time Penicillins Allergy Verified 06/11/24 15:23 [facility] Disclaimer: The information contained in this section may have been updated after the patient was seen, as this information can be updated by other users. Medical History Hypertension History of heart attack Social History Smoking Status: Never smoker alcohol intake: never substance use type: denies use current occupational status: retired Travel in the last 8 weeks?: None household members: spouse housing: house current occupational exposures/hazards: No caffeine: Yes Have you lived/traveled outside US in past 30 days?: No Contact w/someone who lives/traveled outside US past 30 days?: No Exposure to someone with infectious disease in past 14 days?: No Do you have a fever (greater than 100.4 F or 38 C)?: No Have you tested positive for COVID-19?: No Exposed to someone with COVID-19 in past 14 days?: No Do you have a sore throat?: No Do you have a cough?: No Do you have any weakness?: No Do you have any diarrhea?: No Are you experiencing any unusual bleeding?: No Do you have any muscle aches/pain?: No Do you have any abdominal pain?: No Are you experiencing loss of taste or smell?: No Other Medical History Have you received the Flu Vaccine for this season: No Have you received the Pneumonia Vaccine: Yes ROS Obtained: Yes All systems reviewed & no additional complaints except as documented Physical Exam General General appearance: alert and in no apparent distress Head Head exam: atraumatic and normocephalic Eye Eye exam: Present normal appearance, PERRL and EOMI Neck Neck exam: Present normal inspection, full ROM and trachea midline Chest Chest inspection: Present tenderness (Anterior axillary line on the right side lower ribs) Respiratory Respiratory exam: Present normal lung sounds bilaterally; Absent respiratory distress, wheezes, stridor, accessory muscle use or prolonged expiratory phase Cardiovascular Cardiovascular exam: Present other (Pulses equal symmetric in upper and lower extremities) Abdominal Exam Abdominal exam: Present soft; Absent distention, tenderness or pulsatile mass Extremities Exam Extremities exam: Absent edema Neurological Exam Neurological exam: Present alert, oriented X3 and CN II-XII intact; Absent motor sensory deficit Skin Skin exam: Present warm and dry; Absent diaphoresis or erythema Medical Decision Making Medical Records Medical records reviewed: Yes I reviewed the patient's medical records. Screening: Per USPSTF and CDC recommendations, given the prevalence of disease in our region, it is our hospital?s policy to screen for HIV and viral Hepatitis for all patients aged 18 and over and those with ongoing risk factors. Moisés Inquiry Pt receiving controlled substance: No Moisés was queried for this patient: No Vital Signs: 06/11/24 16:07 Temperature 98.6 F Temperature Source Oral Pulse Rate [Right] 62 Respiratory Rate 18 Blood Pressure [Right Arm] 153/70 H Blood Pressure Mean [Right Arm] 97 Blood Pressure Source [Right Arm] Automatic Cuff Blood Pressure Position [Right Arm] Sitting 02 Sat by Pulse Oximetry 98 Oxygen Delivery Method Room Air Orders (Tests/Meds): ED MEDICATIONS Discontinued Medications Generic Name Dose Route Start Last Admin Trade Name Kayode PRN Reason Stop Dose Admin Lidocaine 1 each 06/11/24 16:15 06/11/24 16:42 Lidocaine 5% Transdermal Patch TD 06/11/24 16:16 1 each ONCE ONE Administration ORDERS Category Date Time Status XR ribs RT min 3V w CXR1V Stat Exams 06/11/24 16:15 Taken Medical Decision Narrative: 83-year-old male presenting with right-sided rib pain after fall. He states that he was walking and tripped today, fell down some steps and hit his right anterolateral ribs. No loss of consciousness, did not hit his head, no other trauma sustained. States that he is having right-sided rib pain is made worse with motion, twisting, changes in position. Also made worse with direct application of pressure. States that he is broken multiple bones in the past, this feels like a broken rib, came in for further evaluation. History was obtained via conversation with patient. On arrival, patient hemodynamically stable, alert, [oriented x4, ][appropriate, ]GCS [15], moving all extremities spontaneously, pupils equal and reactive to light. Full physical exam performed and significant for very pleasant, clinically well-appearing male in no acute distress. Bilateral breath sounds, oxygenating appropriately, nontachypneic. He does have tenderness along his anterior axillary line lower ribs consistent with fracture, costochondral dissociation, intercostal muscle strain, less likely pneumothorax, hemothorax, liver laceration, among others. Patient placed on continuous cardiac monitoring and continuous pulse ox with initial blood pressure 153/70, heart rate 62, saturation 18 breaths/min 98% on room air. Patient was given lidocaine patch. X-rays to be obtained. On independent interpretation, no pneumothorax, no obvious rib fracture. On reevaluation, [additional tests/treatment]. Because patient at baseline without signs or symptoms of clinical decompensation, deemed appropriate for discharge. Results were relayed to patient[] who voiced understanding and were agreeable to outpatient management and follow up. I discussed my clinical impression with patient[] and answered all questions. At this time, the evidence for any other entities in the differential is insufficient to warrant any further testing or ED observation. This was explained as well. Advisory was given that persistent or worsening symptoms require further evaluation. I confirmed the understanding of this discussion. Stablehand disclaimer Much of this encounter note is an electronic machine sole leveler spoken language to printed text. Electronic machine sole leveler of the spoken language may permit errors. Although I have reviewed the note, some errors may still exist. Critical Care Critical Care Time Critical Care Time: No
[2024-06-11 19:16] VITALS: BP 154/65; PULSE 64; RESP 20; TEMP 36.7; O2SAT 94
== END 2024-06-11 19:17 | disposition home or self-care (01) ==
PROVIDERS: Emergency Provider Emergency Medicine; PCP Internal Medicine
DX: R07.81 Pleurodynia (principal); W10.8XXA Fall (on) (from) other stairs and steps, initial encounter
CPT/HCPCS: 71101; 99283

== ENCOUNTER → 2024-06-12 20:22 | Outpatient (CLI) | payer MEDICARE, SELFPAY | LOC: SL 20:23 | PROVIDERS: PCP Internal Medicine; Visit Provider Internal Medicine | DX: G47.33 Obstructive sleep apnea (adult) (pediatric) (principal); G47.36 Sleep related hypoventilation in conditions classified elsewhere | CPT/HCPCS: 95810 ==

== ENCOUNTER 2024-09-28 15:53 | Observation (INO) | payer MEDICARE, SELFPAY ==
--- OUTSIDE RECORDS SUMMARY | 2006-12-17 05:57 | XMS_ITS | Continuity of Care Document ---
Author Organization [facility] Address [address] [address] Phone Care Team Providers Care Program Production Specialist Name Role Phone Unavailable Unavailable Unavailable Procedures [...] on Encounter Offic/outpt E&m Estab Minor 10 [facility], [address], [id number], tel:[phone] [facility] No Information No Information [facility], [address], [id number], tel:[phone] [facility] No Information Maxi Valdez. [address], [id number], . tel:[phone] Referring Provider: José Miguel German MD E, [address] [address] [address], [place], [address] . tel:[phone] Family History Family Member Type Diagnosis Age At Onset No Information Payers Payer name Insurance type Covered libertarian ID Authorgermán maravilla(s) [place] [id number] Social History Type Description Quantity Date Captured [...]
--- OUTSIDE RECORDS SUMMARY | 2024-09-11 09:45 | XMS_ITS | Encounter Summary ---
[facility] [address] [place] [address] Care Team Providers Care Furnace Converter Name Role Phone Israel Ugalde MD Primary Care Provider [phone] Reason for Visit * Reason Comments Follow-up 1 year Encounter Details Date Type Department Care Team (Late st Contact Info) Description 09/11/2024 9:45 AM EDT Office Visit [facility] [address] [place] [address] Kenney De Leon MD [address] [place] [address] Coronary artery disease involving [place] coronary artery of [place] heart without angina pectoris (Primary Dx) Social History Tobacco Use Types Packs/Day Years Used Date Smoking Tobacco: Never Smokeless Tobacco: Never Tobacco Cessation:Counseling Given: Not Answered Alcohol Use Standard Drinks/Week Comments No 0 (1 standard drink = 0.6 oz pur e alcohol) Sex and Gender Information Value Date Recorded Sex Assigned at Not on file Legal Sex Male 11:54 AM EDT Gender Identity Not on file Sexual Orientation Not on file documented as of this encounter Last Filed Vital Signs Vital Sign Reading Time Taken Comments Blood Pressure 131/65 09/11/2024 9:58 AM EDT Pulse 62 09/11/2024 9:58 AM EDT Temperature - - Respiratory Rate - - Oxygen Saturation 93% 09/11/2024 9:58 AM EDT Inhaled Oxygen Concentration - - Weight 73.2 kg (161 lb 6.4 oz) 09/11/2024 9:58 A M EDT Height 180.3 cm (5' 11 ) 09/11/2024 9:58 AM EDT Body Mass Index 22.51 09/11/2024 9:58 AM EDT documented in this encounter Progress Notes * Kenney De Leon MD - 09/11/2024 9:45 AM EDT Subjective: Encounter Date:09/11/2024 Primary Care Physician: Israel Ugalde MD Patient ID: Kingsley Hall is a 84 y.o. male. Chief Complaint:Follow-up (1 year ) PROBLEM LIST: Coronary Artery Disease Abnormal MPS: August 2019 EKG portion with 2.[address] depression laterally and 1.5 mm inferiorly. Myoview images negative for ischemia but transient ischemic dilatation noted. Performed at [facility] 10/26/2019: Prox LAD to Mid LAD lesion is 90% stenosed successfully stented with 3.25 x 38 Xience COTY. Postdilated with a 3.5 NC balloon.Normal LVEF 08/20/2020 normal perfusion study. 06/29/2021 nondiagnostic GXT. Patient with asymptomatic 1-1/[address] depression at 9 minutes of exercise that cleared within 1 minute of recovery. Abnormal but not diagnostic of ischemia. Dizziness/presyncope 2019 monitor worn with no significant arrhythmia. Normal LVEF by echo. 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) Left TKR Left great toe traumatic partial amputation Left wrist surgery Right forearm surgery Tonsillectomy Allergies Allergen Reactions Penicillins Rash Current Outpatient Medications: aspirin 81 MG chewable tablet, Chew 1 tablet Daily., Disp: , Rfl: 11 bisoprolol-hydrochlorothiazide (ZIAC) 5-6.25 MG per tablet, Take 1 tablet by mouth Daily., Disp: , Rfl: clopidogrel (PLAVIX) 75 MG tablet, TAKE 1 TABLET BY MOUTH ONCE DAILY, Disp: 30 tablet, Rfl: 10 coenzyme Q10 100 MG capsule, Take 1 capsule by mouth Daily., Disp: , Rfl: glucosamine-chondroitin 500-400 MG capsule capsule, Take by mouth 3 (Three) Times a Day With Meals., Disp: , Rfl: ibuprofen (ADVIL,MOTRIN) 200 MG tablet, Take 3 tablets by mouth As Needed for Mild Pain., Disp: , Rfl: rosuvastatin (CRESTOR) 10 MG tablet, Take 1 tablet by mouth Daily., Disp: , Rfl: zinc sulfate (ZINCATE) 220 (50 Zn) MG capsule, Take 1 capsule by mouth Daily., Disp: , Rfl: losartan (COZAAR) 100 MG tablet, Take 1 tablet by mouth Daily. (Patient not taking: Reported on 09/11/2024), Disp: , Rfl: losartan-hydrochlorothiazide (HYZAAR) 100-25 MG per tablet, , Disp: , Rfl: History of Present Illness Patient returns today for annual follow-up of coronary artery disease. Since her last visit he has had no cardiovascular issues. Lots of deaths in the family including his and multiple family members). 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 No exertional chest pain dyspnea orthopnea PND or claudication The following portions of the patient's history were reviewed and updated as appropriate: allergies, current medications, past family history, past medical history, past social history, past surgicalhistory and problem list. Social History Tobacco Use Smoking status: Never Smokeless tobacco: Never Substance Use Topics Alcohol use: No Drug use: No ROS Objective: BP 131/65 Pulse 62 Ht 180.3 cm (71 ) Wt 73.2 kg (161 lb 6.4 oz) SpO2 93% BMI 22.51 kg/m?? Vitals reviewed. Constitutional: Appearance: Well-developed and not in distress. Neck: Thyroid: No thyromegaly. Vascular: No carotid bruit or JVD. Pulmonary: Breath sounds: Normal breath sounds. Cardiovascular: Regular rhythm. No gallop. No S3 and S4 gallop. Pulses: Intact distal pulses. Carotid: 2+ bilaterally. Radial: 2+ bilaterally. Edema: Peripheral edema absent. Abdominal: General: Bowel sounds are normal. Palpations: Abdomen is soft. There is no abdominal mass. Tenderness: There is no abdominal tenderness. Musculoskeletal: General: No deformity. Extremities: No clubbing present.Skin: General: Skin is warm and dry. Findings: No rash. Neurological: Mental Status: Alert and oriented to person, place, and time. Procedures Assessment: Assessment & Plan Diagnoses and all orders for this visit: 1. Coronary artery disease involving [place] coronary artery of [place] heart without angina pectoris(Primary) 1. Coronary artery disease stable without angina 2. Hypertension well-controlled 3. Dyslipidemia on high intensity statin Recommendations: 1. Patient is currently stable over doing very well. 2. Continue current medical therapy 3. Revisit annually apparent symptom change Kenney De Leon MD Advance Care Planning ACP discussion was held with the patient during this visit. Patient has an advance directive (not in EMR), copy requested. Dictated utilizing [employer] dictation documented in this encounter Plan of Treatment Upcoming Encounters Date Type Department Care Team (Late st Contact Info) Description 09/11/2025 9:30 AM EDT Office Visit [facility] [address] [place] [address] Deonna Kaplan, NATE [address] [place] [address] documented as of this encounter Visit Diagnoses Diagnosis Coronary artery disease involving [place] coronary artery of [place] heart without angina pectoris- Primary documented in this encounter Care Teams Furnace Converter Relationship Specialty Start Date End Date Israel Ugalde MD [address] [facility] [address] [place] [address] PCP - General Internal Medicine 07/29/15 documented as of this encounter
--- OUTSIDE RECORDS SUMMARY | 2024-09-11 09:45 | XMS_ITS | Encounter Summary ---
[facility] [address] [place] [address] Care Team Providers Care Distribution Accounting Clerk Name Role Phone Israel Ugalde MD Primary Care Provider [phone] Reason for Visit * Reason Comments Follow-up 1 year Encounter Details Date Type Department Care Team (Late st Contact Info) Description 09/11/2024 9:45 AM EDT Office Visit [facility] [address] [place] [address] Kenney De Leon MD [address] [place] [address] Coronary artery disease involving [place] coronary artery of [place] heart without angina pectoris (Primary Dx) Social [...] but transient ischemic dilatation noted. 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 Coronary artery disease involving [place] coronary artery of [place] heart without angina pectoris(Primary) 1. Coronary artery [...] (not in EMR), copy requested. Dictated utilizing [employer] dictation documented in this encounter Plan of Treatment Upcoming Encounters Date Type Department Care Team (Late st Contact Info) Description 09/11/2025 9:30 AM EDT Office Visit [facility] [address] [place] [address] Deonna Kaplan, NATE [address] [place] [address] documented as of this encounter Visit Diagnoses Diagnosis Coronary artery disease involving [place] coronary artery of [place] heart without angina pectoris- Primary documented in this encounter Care Teams Distribution Accounting Clerk Relationship Specialty Start Date End Date Israel Ugalde MD [address] [facility] [address] [place] [address] PCP - General Internal Medicine 07/29/15 documented as of this encounter
[2024-09-28] VITALS (12 sets, daily range): BP systolic 96–134; BP diastolic 48–75; PULSE 56–147; RESP 12–21; TEMP 36.6–36.7; O2SAT 94–100; BMI 24.4; BMI 22.1
--- NOTE | 2024-09-28 15:56 | ECG_ITS ---
APPROVED REPORT Exam: Resting ECG HR:134 bpm ECG Measurements Heart Rate 134 AXES QRSd 79 QRS 80 QT 283 T 89 QTc 362 Conclusion Atrial fibrillation with RVR Normal axis No STEMI Electronically signed by : Enrique Moulton, 09/29/2024 01:38:07
--- NOTE | 2024-09-28 16:02 | ED_ITS ---
<Statement entered by Enrique Moulton DO - 09/29/24 01:43> I was consulted by the SOPHIA, and we discussed the complexity of problems being addressed. I approved the treatment and management plan for this patient's care in the emergency department, thus performing a substantive portion of the medical decision making. Enrique Moulton DO Discharge Plan Disposition Patient Disposition: Admitted Condition: Good Clinical Impressions Clinical Impression: Atrial fibrillation Discharge ED Provider: Enrique Moulton General Adult HPI General Chief complaint: Arrhythmia/Palpitations Stated complaint: CP Time Seen by Provider: 09/28/24 15:57 Mode of Arrival: Ambulatory Source of Information: Patient Limitations: No Limitations History of Present Illness HPI narrative: 84-year-old male presents to the emergency department with numerous symptomatology, patient states lightheadedness/presyncope, chest pressure, that started last night, multiple episodes of low blood pressure readings , which prompted his emergency department visit, patient states he took his blood pressure and was in the 80s , he stopped by the fire department , and had him take his blood pressure within normal limits, he states that he still felt bad with some chest pressure, currently not have any chest pain or pressure, does have some shortness of breath/lightheadedness at this time, admits to nausea no vomiting no abdominal pain no constipation no diarrhea, no urinary type symptomatology, patient denies any alcohol tobacco or drug use, patient has history of CAD, status post 1 stent placement, BPH, AMOS, hyperlipidemia, hypertension, he is on aspirin, Plavix, takes daily, on bisoprolol/HCTZ, history of vitals noted for tachycardia in the 120s/130s, otherwise unremarkable vital signs. Please note that above description of symptoms, in this electronic medical record under categorization of recalled from ER triage doctor by RN are reflective of an initial nursing assessment, however, is not reflective of my full history and physical exam that was personally taken and clarified. Consequentially, this preceding description of symptoms, which may include the patient's categorized chief complaint in the EMR, do not reflect my personal clinical impression, and the ultimate description of history of present illness and patient stated complaints should be deferred to this section of the note. Unless stated otherwise or congruent with this section of the note, additional signs, symptoms, or incongruence should be interpreted as inaccurate with my clinical impression. Onset (ago): day(s) Related Data Home Medications ?Medication ?Instructions ?Recorded ?Confirmed coenzyme Q10 10 mg capsule 10 mg PO DAILY Supplement 0 08/28/18 09/13/24 glucosamine sulfate 2KCl 1,000 mg 1,000 mg PO DAILY Reyes pplement 08/28/18 09/13/24 tablet aspirin 81 mg tablet,delayed 81 mg PO DAILY 06/09/20 0 09/13/24 release Previous Rx's ?Medication ?Instructions ?Recorded losartan 100 See Rx Instructions .Route 0 07/09/24 mg-hydrochlorothiazide 25 mg tablet .COMPLEX #90 tabs bisoprolol 5 See Rx Instructions .Route 0 07/10/24 mg-hydrochlorothiazide 6.25 mg .COMPLEX #90 tabs tablet rosuvastatin 10 mg tablet 10 mg PO DAILY #90 tabs 08/31 clopidogrel 75 mg tablet 75 mg PO DAILY #90 tabs 08/09 triamcinolone acetonide 0.1 % 1 applic topical TID PRN rash 09/18/24 topical cream #453.6 grams Allergies Allergy/AdvReac Type Severity Reaction Status Date / Time Penicillins Allergy Verified 09/13/24 12:[address] [facility] Disclaimer: The information contained in this section may have been updated after the patient was seen, as this information can be updated by other users. Medical History Hypertension History of heart attack Surgical History History of knee replacement History of heart artery stent Family History Other Cancer Social History Smoking Status: Never smoker alcohol intake: never substance use type: denies use current occupational status: retired Travel in the last 8 weeks?: None household members: spouse and none housing: house marital status: current occupational exposures/hazards: No caffeine: Yes Have you lived/traveled outside [place] in past 30 days?: No Contact w/someone who lives/traveled outside [place] past 30 days?: No Exposure to someone with infectious disease in past 14 days?: No Do you have a fever (greater than 100.4 F or 38 C)?: No Have you tested positive for COVID-19?: No Exposed to someone with COVID-19 in past 14 days?: No Do you have a sore throat?: No Do you have a cough?: No Do you have any weakness?: No Do you have any diarrhea?: No Are you experiencing any unusual bleeding?: No Do you have any muscle aches/pain?: No Do you have any abdominal pain?: No Are you experiencing loss of taste or smell?: No Other Medical History Have you received the Flu Vaccine for this season: No Have you received the Pneumonia Vaccine: Yes ROS Obtained: Yes All systems reviewed & no additional complaints except as documented Physical Exam General General appearance: alert and in no apparent distress Head Head exam: atraumatic and normocephalic Eye Eye exam: Present PERRL and EOMI ENT ENT exam: Present mucous membranes moist Neck Neck exam: Present normal inspection Chest Chest inspection: Present normal inspection and symmetric chest wall rise Respiratory Respiratory exam: Present normal lung sounds bilaterally; Absent respiratory distress Cardiovascular Cardiovascular exam: Present tachycardia and irregular rhythm; Absent normal rhythm Abdominal Exam Abdominal exam: Present soft; Absent tenderness, guarding, rebound or rigidity Extremities Exam Extremities exam: Present normal inspection Neurological Exam Neurological exam: Present alert and oriented X3 Psychiatric Psychiatric exam: Present normal affect Skin Skin exam: Present warm and dry Medical Decision Making Medical Records Medical records reviewed: Yes I reviewed the patient's medical records. Screening: Per USPSTF and CDC recommendations, given the prevalence of disease in our region, it is our hospital?s policy to screen for HIV and viral Hepatitis for all patients aged 18 and over and those with ongoing risk factors. Moisés Inquiry Pt receiving controlled substance: No Moisés was queried for this patient: No Vital Signs: 09/28/24 15:53 09/28/24 17:38 Pulse Rate 93 H Pulse Rate [Right] 147 H Respiratory Rate 21 18 Blood Pressure 96/53 L Blood Pressure [Right Arm] 101/74 L Blood Pressure Mean [Right Arm] 83 Blood Pressure Source [Right Arm] Automatic Cuff 02 Sat by Pulse Oximetry 99 98 Oxygen Delivery Method Room Air Lab Data Lab results reviewed: Yes I reviewed the patient's lab results. Lab Results 09/28/24 16:00: WBC 7.4, RBC 4.37 L, Hgb 12.7 L, Hct 38.2 L, MCV 87.4, MCH 29.1, MCHC 33.2, RDW 12.3, Plt Count 246, MPV 10.0, Neut % (Auto) 58.1, Lymph % (Auto) 29.3, White % (Auto) 9.1, Eos % (Auto) 2.6, Baso % (Auto) 0.4, Neut # (Auto) 4.3, Lymph # (Auto) 2.2, White # (Auto) 0.7, Eos # (Auto) 0.2, Baso # (Auto) 0.0, Sodium 143, Potassium 4.7, Chloride 113 H, Carbon Dioxide 19 L, Anion Gap 15.7 H , BUN 35 H, Creatinine 1.40 H, Estimated Creat Clear 45, Estimated GFR 48 L, Est GFR ( Amer) 58 L, Glucose 118 H, Calcium 9.7, Magnesium 1.9, Total Bilirubin 0.8, AST 35, ALT 31, Alkaline Phosphatase 83, Troponin I < 0.01, N T-Pro-B Natriuret Pep 2730 H, Total Protein 7.5, Albumin 4.4, Globulin 3.1, Albumin/Globulin Ratio 1.4, TSH 1.35, Thyroxine (T4) 6.2, HCV Ab WENDY w/Rflx PCR Qn Negative, HIV Ag/Ab Combo Qual Negative 09/28/24 16:00 09/28/24 16:00 Orders (Tests/Meds): ED MEDICATIONS Generic Name Dose Route Start Last Admin Trade Name Freq PRN Reason Stop Dose Admin Acetaminophen 650 mg 09/28/24 18:00 Acetaminophen 325mg Tab PO 10/28/24 17:59 Q4HP PRN Fever or Mild Pain (1-3) Enoxaparin Sodium 80 mg 09/28/24 18:00 Enoxaparin 100mg/Ml Syringe 1 mg/kg (80 mg) 10/28/24 17:59 SUBCUT Q12H SUSI Discontinued Medications Generic Name Dose Route Start Last Admin Trade Name Freq PRN Reason Stop Dose Admin Aspirin 243 mg 09/28/24 16:55 09/28/24 17:04 Aspirin 81mg Chewable Tablet PO 09/28/24 16:56 243 mg ONCE ONE Administration ORDERS Category Date Time Status Cardiology Consult [Consult to Cardiology] [CONS] Cons 09/28/24 18:00 Active Routine XR chest portable Stat Exams 09/28/24 16:17 Completed Complete Blood Count Auto Diff AMLAB Lab 09/29/24 06:00 Ordered Complete Blood Count Auto Diff Stat Lab 09/28/24 16:00 Completed Comprehensive Metabolic Panel AMLAB Lab 09/29/24 06:00 Ordered Comprehensive Metabolic Panel Stat Lab 09/28/24 16:00 Completed HIV Combo Stat Lab 09/28/24 16:00 Completed Hepatitis C Ab Qual. W/ RFX Stat Lab 09/28/24 16:00 Completed Lipid Panel AMLAB Lab 09/29/24 06:00 Ordered MAG [Magnesium] Stat Lab 09/28/24 16:00 Completed Magnesium AMLAB Lab 09/29/24 06:00 Ordered NT Pro Brain Natriuretic Pep. Stat Lab 09/28/24 16:00 Completed T4 (Thyroxine) Stat Lab 09/28/24 16:00 Completed TSH [Thyroid Stimulating Hormone] Stat Lab 09/28/24 16:00 Completed Troponin I Q3H Lab 09/28/24 16:00 Completed Troponin I Q3H Lab 09/28/24 19:15 Ordered CA echo doppler complete Routine Y 09/28/24 18:01 Ordered Medical Decision Narrative: 84-year-old male presents the emergency department with chest pain pressure presyncopal episode lightheadedness, differential diagnosis include but not limited to cardiac arrhythmia, electrolyte disturbance, ACS, costochondritis, pneumonia, anxiety reaction, panic attack, among others. I discussed this patient's care attending physician Will obtain basic laboratory studies, troponin, magnesium level, chest x-ray, proBNP, EKG, give 243 p.o. milligram aspirin here in the emergency department for chest pain. CBC unremarkable CMP is notable for acute kidney injury with a BUN of 35 and creatinine of 1.4, which is mildly elevated outside of the patient's baseline proBNP is elevated at 2730, initial troponin is within normal limits is less than 0.01. Initial EKG was reviewed by myself and the attending physician at approximately 1550 6 PM, patient seems to be in atrial fibrillation with RVR at a rate of 134 bpm, QT intervals 2-3/362, there is no STEMI. At approximately 4:55 PM, patient appears of spontaneously converted back to sinus rhythm,/rate controlled at this time around 90 bpm at the bedside, repeat EKG. Repeat EKG performed at 1706, shows atrial fibrillation 80 bpm, QT interval is 355/391 there is no STEMI. I reviewed the patient's chest x-ray along with the corresponding radiologic report, no negative for any acute cardiopulmonary abnormality, stable chest radiograph. I discussed this patient's case with Dr. Eubanks the on-call tailer in at approximately 5:45 PM, he recommends admission to the hospital for new onset atrial fibrillation with RVR, no need to rate control at this time as patient is already spontaneously converted. He would like me to add on a thyroid study panel. Will order a TSH/T4. I attempted to call the hospitalist at approximately 5:47 PM, they state they will call me back. I discussed this patient's case with the hospitalist physician Dr. Denise at approximately 6 PM, he is in agreement with current admission plan/treatment plan for new onset atrial fibrillation with RVR. I discussed need for admission with the patient and family the bedside patient and family in agreement with current treatment plan/admission plan. Currently at this time no need for rate control as patient is rate controlled at 80 to 90 bpm on the monitor. TSH and T4 within normal limits Critical Care Critical Care Time Critical Care Time: No
--- OUTSIDE RECORDS SUMMARY | 2024-09-28 16:06 | XMS_ITS | Clinical Summary ---
Author Organization [facility] Address [address] [place] [address] Phone Care Team Providers Care Crew Chief Name Role Phone Dakotah Crespo MD Unavailable [ ] Conditions or Problems Problem Name Problem Code Onset Date Status Entry Date Provider Comment Standard Description Annotate Dysuria 00981761 (SNOMED CT) 08/17 Active 08/17 Neli Katarina Dysuria Prediabetes 872947641 (SNOMED CT) 08/13 Active 08/13 Sara Fili Prediabetes Staph epi septic arthritis, right knee M00.061 (ICD-10-CM ) 06/04 Active 06/04 Laurita W Staphylococcal arthritis, right knee Numbness and tingling in right hand/fingers 88180923 (SNOMED CT) 07/06 Active 07/08 Laurita W Paresthesia of upper limb 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 (ICD-10-CM ) 06/04 Active 06/04 Sara Fili Acquired absence of right knee Knee, right, subsequent encounter, infection/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 T84.53xD (ICD-10-CM ) 06/04 Active 06/04 Sara Fili Infection and inflammatory reaction due to internal right knee prosthesis, subsequent encounter Edema, lower extremity R60.0 (ICD-10-CM ) 06/04 Active 06/04 Sara Fili Localized edema Staph epi septic arthritis, right knee (B95.7) M00.061 (ICD-10-CM ) 06/04 Inactive 06/04 Sara Fili Staphylococcal arthritis, right knee Staph epi infection B95.7 (ICD-10-CM ) 06/04 Active 06/04 Sara Penn Other staphylococcus as the cause of diseases classified elsewhere Benign Essential Hypertension 0826466 (SNOMED CT) 06/04 Active 06/04 Sara Penn Benign essential hypertension Medications Medication Instructions Start Date Stop Date Generic Name NDC Provider DOXYCYCLINE MONOHYDRATE 100 MG CAPS Take one (1) tablet by mouth twice a day DOXYCYCLINE MONOHYDRATE 18169504820 Neli Crance DOXYCYCLINE MONOHYDRATE 100 MG CAPS 1 po bid DOXYCYCLINE MONOHYDRATE 19660613515 Neli Crance DOXYCYCLINE MONOHYDRATE 100 MG CAPS 1 po bid DOXYCYCLINE MONOHYDRATE 41212549629 Dakotah Crespo MD TRIAMCINOLONE ACETONIDE 0.1 % LOTN Use on arms twice daily TRIAMCINOLONE ACETONIDE 92684282582 Dakotah Crespo MD DOXYCYCLINE MONOHYDRATE 100 MG CAPS Take one (1) tablet by mouth twice a day DOXYCYCLINE MONOHYDRATE 50120188472 Dakotah Crespo MD DOXYCYCLINE MONOHYDRATE 100 MG CAPS 1 po bid DOXYCYCLINE MONOHYDRATE 21359028475 Dakotah Crespo MD LEVAQUIN 750 MG ORAL TABLET 1 po qd x 20 day LEVOFLOXACIN 91317343375 Dakotah Crespo MD KEFLEX 500 MG ORAL CAPSULE Take two (2) tablets by mouth twice a day CEPHALEXIN 98514444537 Neli Crance PRAVASTATIN SODIUM 40 MG TABS Take 1 tablet by mouth daily PRAVASTATIN SODIUM 13088959433 Carmelo B COZAAR 50 MG TABS Take 2 tablets by mouth daily LOSARTAN POTASSIUM 72115156615 Carmelo B NORCO 7.5-325 MG ORAL TABLET Take 1 tablet by mouth every 4 hours as needed HYDROCODONE-ACET AMINOPHEN 26249737089 Carmelo B COLACE 100 MG CAPS Take one (1) tablet by mouth twice a day as needed DOCUSATE SODIUM 29450490032 Carmelo B KEFLEX 500 MG ORAL CAPSULE Take two (2) tablets by mouth twice a day CEPHALEXIN 16212298273 Carmelo B ZIAC 5-6.25 MG ORAL TABLET Take 1 tablet by mouth daily BISOPROLOL-HYDRO CHLOROTHIAZIDE 07099686257 Carmelo B ASPIRIN 325 MG TABS Take 1 tablet by mouth daily ASPIRIN 81774802240 Carmelo B ASPIRIN EC 325 MG ORAL TABLET DELAYED RELEASE Take 1 tablet by mouth daily ASPIRIN 35665897250 Carmelo B ZIAC 5-6.25 MG ORAL TABLET Take 1 tablet by mouth daily BISOPROLOL-HYDRO CHLOROTHIAZIDE 81200540316 Carmelo B COLACE 100 MG CAPS Take one (1) tablet by mouth twice a day DOCUSATE SODIUM 37905026015 Carmelo B NORCO 7.5-325 MG ORAL TABLET 1 tablet by mouth every 4 hours as needed HYDROCODONE-ACET AMINOPHEN 87006464293 Carmelo B COZAAR 50 MG TABS Take 2 tabs by mouth daily LOSARTAN POTASSIUM 14842906964 Carmelo B PRAVACHOL 40 MG ORAL TABLET Take 1 tablet by mouth daily PRAVASTATIN SODIUM 31549899267 Carmelo B CEFAZOLIN SODIUM-DEXTROSE 2-5 GM/100ML-% SOLN 2gm IV q 8hrs [employer]/No Dressing & labs at apt. per CEFAZOLIN IN D5W [id number] [facility] CEFAZOLIN SODIUM-DEXTROSE 2-5 GM/100ML-% SOLN 2gm IV q 8hrs [employer]/No Dressing & labs at apt. per CEFAZOLIN IN D5W 21354136052 [facility] PRAVACHOL 40 MG ORAL TABLET Take 1 tablet by mouth daily PRAVASTATIN SODIUM 53107568203 Carmelo B COZAAR 50 MG TABS Take 2 tabs by mouth daily LOSARTAN POTASSIUM 04252564678 Carmelo B NORCO 7.5-325 MG ORAL TABLET 1 tablet by mouth every 4 hours as needed HYDROCODONE-ACET AMINOPHEN 65243323554 Carmelo B COLACE 100 MG CAPS Take one (1) tablet by mouth twice a day DOCUSATE SODIUM 60678544533 Carmelo B ZIAC 5-6.25 MG ORAL TABLET Take 1 tablet by mouth daily BISOPROLOL-HYDRO CHLOROTHIAZIDE 76946847979 Carmelo B ASPIRIN EC 325 MG ORAL TABLET DELAYED RELEASE Take 1 tablet by mouth daily ASPIRIN 48236486883 Carmelo B Medications Administered No information available. Allergies, Adverse Reactions, Alerts Allergy Name Reaction Description Start Date Severity Statu s Provider PCN Critical Active Yani S LEVAQUIN Itching, flushing Mild Active Carmelo Estrella RN LEVAQUIN Itching, Shortness o f breath, flushing Moderate No Longer Active Evelia Estrella RN Results Date Name Value Unit Range Flag Description Office Visit: rm 10 SMOK ADVICE yes Smoking c essation education (procedure) Lab Report: CBC With Differe ntial/Platelet, Comp. Metabolic Panel (14), ... CRPCARDRISK 1.780 mg/L 0.000-10.00 0 C reactive protein [Mass/volume] in Serum or Plasma Lab Report: URINALYSIS WITHO UT MICROSOPIC UROBILINOGEN 1.0 E.U./dL 0.2 - 1.0 Ur obilinogen [Presence] in Urine by Test strip NITRITE URN Negative Negative Nitrite [Presence] in Urine by Test strip WBC DIPSTK U Negative Negative Leukoc yte esterase [Presence] in Urine by Test strip PROTEIN, URN Negative Negative protei n, urine, semiquantitative (dipstick) BILIRUBIN UR Negative Negative Biliru bin.total [Presence] in Urine by Test strip KETONES URN Negative Negative Ketones [Mass/volume] in Urine by Test strip GLUCOSE, URN Negative Negative Glucos e [Mass/volume] in Urine by Test strip SPEC GR URIN 1.018 1.001-1.03 Speci fic gravity of Urine by Test strip PH URINE 5.5 5.0-8.0 pH of Urine by Test strip APPEARANCE U Clear Clear Appearan ce of Urine UA COLOR Yellow Yellow, St Color of Urine Lab Report: URINALYSIS, MICR OSCOPIC ONLY HYAL CAST UR 0-6 /[LPF] 0-6 Hyaline casts [#/area] in Urine sediment by Microscopy low power field Lab Report: Urinalysis, Comp lete, Microscopic Examination BACTERIA URN NOSEE None Seen Bacter ia [#/area] in Urine sediment by Microscopy high power field CAST TYP URN HYAC cast typ e, urinalysis EPI CELL UR 0-2 /[LPF] None Seen,0-2 Epithelial cells [#/area] in Urine sediment by Microscopy high power field URBC 0-2 /hpf /[HPF] None Seen,0-2 Erythrocytes [#/area] in Urine sediment by Microscopy high power field URINE MICRO MICRO Microscop ic exam [Interpretation] of Urine by Cytology NITRATE UR N Negative Nitrate [ Presence] in Urine HEMOCCULT N Negative Hemoglobin .gastroin testinal [Presence] in Stool GLUC UR LIBAN N g/dL Negative Glucose [Mass/volume] in Urine SPEC GRAV FL 1.018 1.001-1.030 Spec ific gravity of Body fluid Lab Report: COMPREHENSIVE ME TABOLIC PANEL BILI TOTAL 0.4 mg/dL 0.3-1.2 Bilirubin. total [Mass/volume] in Serum or Plasma ALK PHOS 101 U/L 25-100 H Alkaline phosphatase [Enzymatic activity/volume] in Blood SGOT (AST) 21 U/L 0-33 Aspartate aminotransferase [Enzymatic activity/volume] in Serum or Plasma SGPT (ALT) 20 U/L 7-40 Alanine aminotransferase [Enzymatic activity/volume] in Serum or Plasma ALBUMIN 4.00 g/dL 3.20-4.80 Albumin [Mass/volume] in Serum or Plasma PROTEIN, TOT 6.9 g/dL 5.7-8.2 Protein [Mass/volume] in Serum or Plasma Lab Report: CBC With Differe ntial/Platelet, Comp. Metabolic Panel (14), ... 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 Lab Report: CBC WITH AUTO DI FFERENTIAL IMMATUREGRAN 0.04 10*3/MM3 0.00-0.03 H Immature granulocytes [#/volume] in Blood BASO# 0.02 10*3/mm3 0.00-0.20 Basophils [#/volume] in Blood EOS ABSLT 0.26 10*3/uL 0.00-0.30 Eosinophi ls [#/volume] in Blood MONOSCT AUTO 0.69 10*3/uL 0.00-1.00 Monocy danielle [#/volume] in Blood by Automated count LYMPHCT AUTO 1.41 10*3/mm3 0.60-4.80 Lymph ocytes [#/volume] in Blood by Automated count ABS NEUTROPH 3.78 10*3/uL 1.50-8.30 Neutro phils [#/volume] in Blood IMM GRANU % 0.6 % 0.0-0.6 Immature granulocytes/100 leukocytes in Blood [id number] 0.3 % 0.0-1.0 GE use only - for [employer] import when terms are not otherwise specified % EOS AUTO 4.2 % 0.0-3.0 H Eosinophil s/100 leukocytes in Blood by Automated count MONOCYTE BF 11.1 % 0.0-12.0 monocyte s as percent of body fluid leukocytes LYMPHOCY BF 22.7 % 24.0-44.0 L lymphoc ytes as percent of body fluid leukocytes PMN % 61.1 % 41.0-71.0 Neutrophils /100 leukocytes in Blood by Automated count PLATELETS 192 10*3/mm3 150-450 Platelets [#/volume] in Blood by Automated count RDW_ 12.4 11.3-14.5 RDW, no uni ts MCHC 34.6 G/DL 32.0-36.0 MCHC [Mass/ volume] by Automated count MCH 29.6 pg 27.0-31.0 MCH [Entiti c mass] by Automated count MCV 85.4 fL 80.0-99.0 MCV [Entiti c volume] by Automated count HCT 36.4 % 38.9-50.9 L Hematocrit [Volume Fraction] of Blood by Automated count HGB 12.6 g/dL 13.1-17.5 L Hemoglobin [Mass/volume] in Blood RBC 4.26 10*6/mm3 4.20-5.76 Erythrocyt es [#/volume] in Blood by Automated count WBC 6.20 10*3/mm3 3.50-10.80 Leukocyte s [#/volume] in Blood by Automated count Lab Report: SEDIMENTATION RA TE ESR 25 mm/h 0-20 H Erythrocyte sedimentation rate by Westergren method Lab Report: BASIC METABOLIC PANEL ANIONGAP 5.0 mmol/L 3.0-11.0 anion gap, serum BUN/CREAT 22.2 7.0-25.0 Urea nitrogen/Creatinine [Mass Ratio] in Serum or Plasma GFRC 66 mL/min/1 .73m2 >60 Glomerular Filtration Rate Calculation CALCIUM 9.1 mg/dL 8.7-10.4 Calcium [Moles/volume] in Serum or Plasma CO2 28.0 mmol/L 20.0-31.0 Carbon diox melinda, total [Moles/volume] in Venous blood CHLORIDE 107 mmol/L 99-109 Chloride [Moles/volume] in Serum or Plasma POTASSIUM 4.5 mmol/L 3.5-5.5 Potassium [Moles/volume] in Serum or Plasma SODIUM 140 mmol/L 132-146 Sodium [Moles/volume] in Serum or Plasma CREATININE 1.08 mg/dL 0.60-1.30 Creatini ne [Mass/volume] in Serum or Plasma BUN 24 mg/dL 9-23 H Urea nitrogen [Mass/volume] in Serum or Plasma GLUCOSE SER 99 mg/dL 70-100 Glucose [Mass/volume] in Serum or Plasma Lab Report: C-REACTIVE PROTE IN CRP 0.04 mg/dL 0.00-1.00 C reactive protein [Mass/volume] in Serum or Plasma Lab Report: CBC With Differe ntial/Platelet, Basic Metabolic Panel (8), S ... EGFR NOT AFA 66 mL/min/1 .73m2 >60 Glomerular filtration rate/1.73 sq M.predicted among non-blacks [Volume Rate/Area] in Serum, Plasma or Blood by Creatinine-based formula (MDRD) BG RANDOM 99 mg/dL 70-100 Glucose [Mass/volume] in Blood BASOPHIL % 0.3 % 0.0-1.0 Basophils/ 100 leukocytes in Blood by Manual count MONOCYTE % 11.1 % 0.0-12.0 Monocytes /100 leukocytes in Blood by Automated count LYMPHS % 22.7 % 24.0-44.0 L Lymphocyte s/100 leukocytes in Blood by Automated count RDW 12.4 % 11.3-14.5 Erythrocyte distribution width [Ratio] by Automated count Plan of Care Type Date Detail Pending order BMP Pending order CBC with Differe ntial Pending order Sedimentation Ra te (ESR) Pending order C- reactive prot ein Pending order BMP Pending order CBC with Differe ntial Pending order C- reactive prot ein Pending order Sedimentation Ra te (ESR) Pending order Sedimentation Ra te (ESR) Pending order C- reactive prot ein Pending order CBC with Differe ntial Pending order BMP Pending order STAT Labs Pending order Continue oral an tibiotics Pending order CMP Pending order CBC with Differe ntial Pending order C- reactive prot ein Pending order Sedimentation Ra te (ESR) Pending order Continue oral an tibiotics Pending order New Oral Antibio tic Pending order BMP Pending order CBC with Differe ntial Pending order C- reactive prot ein Pending order Sedimentation Ra te (ESR) Pending order BMP Pending order CBC with Differe ntial Pending order C- reactive prot ein Pending order Sedimentation Ra te (ESR) Pending order New Oral Antibio tic Pending order BMP Pending order CBC with Differe ntial Pending order C- reactive prot ein Pending order Sedimentation Ra te (ESR) Pending order Urinalysis with microscopic exam Pending order Urine Culture & Sensitivity Pending order PICC Removal Pending order Continue IV anti biotics Pending order Weekly Labs (Con tinue) Pending order Weekly PICC Line Care Pending order CBC with Differe ntial Pending order C- reactive prot ein Pending order Sedimentation Ra te (ESR) Pending order BMP Pending order Continue IV anti biotics Pending order CMP Pending order CBC with Differe ntial Pending order C- reactive prot ein Pending order Sedimentation Ra te (ESR) Pending order CMP Pending order CBC with Differe ntial Pending order C- reactive prot ein Pending order Sedimentation Ra te (ESR) Pending order Continue IV anti biotics Pending order Weekly Labs (Con tinue) Pending order Weekly PICC Line Care Pending order BMP Pending order CBC with Differe ntial Pending order C- reactive prot ein Pending order Sedimentation Ra te (ESR) Pending order BMP Pending order CBC with Differe ntial Pending order C- reactive prot ein Pending order Sedimentation Ra te (ESR) Pending order Continue IV anti biotics Pending order Weekly PICC Line Care Pending order Weekly Labs (Con tinue) Pending order BMP Pending order CBC with Differe ntial Pending order C- reactive prot ein Pending order Sedimentation Ra te (ESR) Pending order STAT Labs Procedures Code Procedure Name Date Entry Date CPT-72581 [facility] [id number] CBC with Differential 2017 CPT-74123 Sedimentation Rate (ESR) 201 09/13/03 CPT-42005 C- reactive protein CPT-59714 [facility] [id number] CBC with Differential 2016 CPT-88351 C- reactive protein CPT-75538 Sedimentation Rate (ESR) 201 08/17/20 CPT-47552 Sedimentation Rate (ESR) 201 08/18/19 CPT-46107 C- reactive protein [id number] CBC with Differential 2016 CPT-86985 BMP CPT-sl STAT Labs CPT-Cooral Continue oral antibiotics 24/10/24 CPT-27841 CMP [id number] CBC with Differential 2016 CPT-48869 C- reactive protein CPT-38765 Sedimentation Rate (ESR) 201 08/15/24 CPT-Cooral Continue oral antibiotics 23/09/00 CPT-calvin New Oral Antibiotic CPT-calvin New Oral Antibiotic CPT-99863 BMP [id number] CBC with Differential 2016 CPT-42807 C- reactive protein CPT-07935 Sedimentation Rate (ESR) 201 08/13/10 CPT-39056 Urinalysis with microscopic exam CPT-48150 Urine Culture & Sensitivity CPT-PICREM PICC Removal CPT-ca Continue IV antibiotics 2016 CPT-cwl Weekly Labs (Continue) 07/06 CPT-wpc Weekly PICC Line Care 07/06 [id number] CBC with Differential 2016 CPT-76946 C- reactive protein CPT-14217 Sedimentation Rate (ESR) 201 08/11/29 CPT-53171 BMP CPT-ca Continue IV antibiotics 2016 CPT-ca Continue IV antibiotics 2016 CPT-cwl Weekly Labs (Continue) 06/22 CPT-wpc Weekly PICC Line Care 06/22 CPT-ca Continue IV antibiotics 2016 CPT-wpc Weekly PICC Line Care 06/15 CPT-cwl Weekly Labs (Continue) 06/15 CPT-43378 BMP [id number] CBC with Differential 2016 CPT-87423 C- reactive protein CPT-20298 Sedimentation Rate (ESR) 201 08/11/08 CPT-sl STAT Labs Vital Signs Date Name Value Unit Description BMI (Body Mass Index) 23.89 kg/m2 Bod y Mass Index (Ratio) Body Temperature 97.8 [degF] temperat ure E&M BP Diastolic 60 mm[Hg] blood pressu re, diastolic BP Systolic 132 mm[Hg] blood pressur e, systolic Heart Rate 56 /min pulse rate Height 72 [in_us] height E&M Respiratory Rate 12 /min respirat ory rate E&M Weight Measured 176.2 [lb_av] weight E& M Weight Measured 176.2 [lb_av] weight E& M Body Temperature 37.06 April temperat ure in centigrade E&M Weight Measured 79.09 kg weight in kilograms E&M Immunizations No information available. Advance Directives Directive Description Start Date NO LIVING WILL
--- OUTSIDE RECORDS SUMMARY | 2024-09-28 16:06 | XMS_ITS | Clinical Summary ---
Author Organization [facility] Address [address] [place] [address] Care Team Providers Care Blood Typer Name Role Phone Israel Ugalde MD Primary Care Provider [phone] Allergies Active Allergy Reactions Criticality Noted Date Comments Penicillins Rash Low 11/01/2016 Medications bisoprolol-hydr ochlorothiazide (ZIAC) 5-6.25 MG per tablet Take 1 tablet by mouth Daily. Active ibuprofen (ADVIL,MOTRIN) 200 MG tablet Take 3 tablets by mouth As Needed for Mild Pain. Active losartan (COZAAR) 100 MG tablet Take 1 tablet by mouth Daily. 11/21/2016 Active glucosamine-cho ndroitin 500-400 MG capsule capsule Take by mouth 3 (Three) Times a Day With Meals. Active aspirin 81 MG chewable tablet Chew 1 tablet Daily. 11 10/26/2019 Active coenzyme Q10 100 MG capsule Take 1 capsule by mouth Daily. Active clopidogrel (PLAVIX) 75 MG tablet TAKE 1 TABLET BY MOUTH ONCE DAILY 30 tablet 10 12/21/2021 Active rosuvastatin (CRESTOR) 10 MG tablet Take 1 tablet by mouth Daily. Active losartan-hydroc hlorothiazide (HYZAAR) 100-25 MG per tablet 08/18/2023 Activ e zinc sulfate (ZINCATE) 220 (50 Zn) MG capsule Take 1 capsule by mouth Daily. Active Active Problems Problem Noted Date Diagnosed Date Coronary artery disease invo lving prairie band coronary artery of prairie band heart without angina pectoris 11/28/2019 Abnormal myocardial perfusion study 10/22/2019 Overview (10/22/2019): Added automatically from request for surgery [id number] Infection 08/06/2016 Hyperlipidemia 08/06/2016 Prediabetes 08/06/2016 S/P removal of antibiotic sp acer right knee, reimplantation of right total knee arthroplasty 08/06/2016 S/P removal of implants righ t knee with antibiotic spacer, with I&D 05/28/2016 Anemia 05/28/2016 Infection of prosthetic right knee joint 017 HTN (hypertension) 05/27/2016 Acute pain 05/27/2016 Degenerative arthritis of knee, bilateral 2015 S/P total knee arthroplasty, bilateral 6 Encounters Date Type Department Care Team Description 09/11/2024 9:45 AM EDT Office Visit [facility] [address] [place] [address] Kenney De Leon MD Coronary artery disease involving prairie band coronary artery of prairie band heart without angina pectoris (Primary Dx) 09/11/2024 Travel from Last 3 Months Family History Medical History Relation Name Comments Hypertension Child COPD Father Cancer Mother Heart attack Other 1 Grandparent Stroke Other 1 Grandparent Heart attack Other 2 Sibling Hypertension Other 2 Sibling Anesthesia problems Other 3 FH Relation Name Status Comments Child Father Mother Other 1 Grandparent Other 2 Sibling Other 3 FH Social History Tobacco Use Types Packs/Day Years [...] on file Sexual Orientation Not on file Last Filed Vital Signs Vital Sign Reading Time Taken Comments Blood Pressure 131/65 09/11/2024 9:58 AM EDT Pulse 62 09/11/2024 9:58 AM EDT Temperature 36.3 C (97.4 F) 10/26/2019 7:25 AM EDT Respiratory Rate 20 09/01/2022 10:18 AM EDT Oxygen Saturation 93% 09/11/2024 9:58 AM EDT Inhaled Oxygen Concentration - - Weight 73.2 kg (161 lb 6.4 oz) 09/11/2024 9:58 AM EDT Height 180.3 cm (5' 11 ) 09/11/2024 9:58 AM EDT Body Mass Index 22.51 09/11/2024 9:58 AM EDT Plan of Treatment Upcoming Encounters Date Type Department Care Team (Late st Contact Info) Description 09/11/2025 9:30 AM EDT Office Visit [facility] [address] [place] [address] Deonna Kaplan, PAYROLL PROFESSIONAL [address] [place] [address] Health Maintenance Due Date Last Done Comments TDAP/TD VACCINES (1 - Tdap) 06/22/1959 Pneumococcal Vaccine 50+ (1 of 1 - PCV) 06/22/1989 ZOSTER VACCINE (1 of 2) 06/22/1989 RSV Vaccine - Adults (1 - 1- dose 75+ series) 06/22/2014 ANNUAL WELLNESS VISIT 05/27/2016 LIPID PANEL 10/25/2020 10/26/2019 COVID-19 Vaccine ( season) 2023, 04/05/2020 INFLUENZA VACCINE 11/07/2024 04/11/2024 Medical Devices Implanted Type Area Track Repairer Helper Device Identifier Shelf Expiration Date Model / Serial / Lot Cmt Bone Smartmix Gmv Gent 40gr - [id number] Implanted:Qty: 1 on 08/05/2015 by Willi Murphy MD at [facility] Implant Left: Knee DEPUY 10/07/2016 [id number] / / Comp Fem Attune Cmt Ps Sz7 Rt - [id number] Implanted:Qty: 1 on 08/05/2015 by Willi Murphy MD at [facility] Implant Right: Knee DEPUY 03/09/2025 [id number] / / [id number] Comp Pat Attune Cmt Medl Sindhu 41mm - [id number] Implanted:Qty: 1 on 08/05/2015 by Willi Murphy MD at [facility] Implant Right: Knee DEPUY 03/09/2020 [id number] / / [id number] Insrt Tib Attune Ps Rp Sz7 6mm - [id number] Implanted:Qty: 1 on 08/05/2015 by Willi Murphy MD at [facility] Implant Right: Knee DEPUY 02/07/2020 [id number] / / [id number] Totl Kn Attune Depuy - [id number] Implanted:Qty: 1 on 08/05/2015 by Willi Murphy MD at [facility] Implant Left: Knee DEPUY CAPKNEETOTAL DEP5 / / Totl Kn Attune Depuy - [id number] Implanted:Qty: 1 on 08/05/2015 by Willi Murphy MD at [facility] Implant Right: Knee DEPUY CAPKNEETOTAL DEP5 / / Cmt Bone Smartmix Gmv Gent 40gr - [id number] Implanted:Qty: 1 on 08/05/2015 by Willi Murphy MD at [facility] Implant Left: Knee DEPUY 07/07/2016 [id number] / / Cmt Bone Smartmix Gmv Gent 40gr - [id number] Implanted:Qty: 1 on 08/05/2015 by Willi Murphy MD at [facility] Implant Right: Knee DEPUY 10/07/2016 [id number] / / Cmt Bone Smartmix Gmv Gent 40gr - [id number] Implanted:Qty: 1 on 08/05/2015 by Willi Murphy MD at [facility] Implant Right: Knee DEPUY 10/07/2016 [id number] / / Base Tib Attune Cmt Rp Sz7 - [id number] Implanted:Qty: 1 on 08/05/2015 by Willi Murphy MD at [facility] Implant Left: Knee DEPUY 06/06/2025 [id number] / / [id number] Comp Fem Attune Cmt Ps Sz7 Lt - [id number] Implanted:Qty: 1 on 08/05/2015 by Willi Murphy MD at [facility] Implant Left: Knee DEPUY 05/07/2025 [id number] / / [id number] Comp Pat Attune Cmt Medl Sindhu 41mm - [id number] Implanted:Qty: 1 on 08/05/2015 by Willi Murphy MD at [facility] Implant Left: Knee DEPUY 04/06/2020 [id number] / / [id number] Insrt Tib Attune Ps Rp Sz7 6mm - [id number] Implanted:Qty: 1 on 08/05/2015 by Willi Murphy MD at [facility] Implant Left: Knee DEPUY 10/08/2019 [id number] / / [id number] Base Tib Attune Cmt Rp Sz7 - [id number] Implanted:Qty: 1 on 08/05/2015 by Willi Murphy MD at [facility] Implant Right: Knee DEPUY 05/07/2025 [id number] / / [id number] Bone Filler Void Rapd Cure Stimulan 25cc - [id number] Implanted:Qty: 1 on 05/28/2016 by Willi Murphy MD at [facility] Implant Right: Knee BIOCOMPOSITES 10/07/2018 [id number] / / [id number] [facility] Bone Endurance Smartset 40gm - [id number] Implanted:Qty: 2 on 05/28/2016 by Willi Murphy MD at [facility] Implant Right: Knee DEPUY 02/06/2018 [id number] / / [id number] [facility] Bone Endurance Smartset 40gm - [id number] Implanted:Qty: 1 on 05/28/2016 by Willi Murphy MD at [facility] Implant Right: Knee DEPUY 12/20/2017 [id number] / / [id number] Spacr Kn Interspace Gent 1.3gm 64 Md - [id number] Implanted:Qty: 1 on 05/28/2016 by Willi Murphy MD at [facility] Implant Right: Knee TECRES SPA 02/06/2019 [id number] / / [id number] [facility] Bone Simplex Ro Ful Dose - [id number] Implanted:Qty: 2 on 08/06/2016 by Willi Murphy MD at [facility] Implant Right: Knee BEBETO EDUARDA 02/06/2019 [id number] / / [id number] Stem Fem Flut Univ 39m08ft - [id number] Implanted:Qty: 1 on 08/06/2016 by Willi Murphy MD at [facility] Implant Right: Knee DEPUY 08/06/2025 [id number] / / [id number] [place] Stem Fem Sigma Offst Wadpt Pls/Min2 - [id number] Implanted:Qty: 1 on 08/06/2016 by Willi Murphy MD at [facility] Implant Right: Knee DEPUY 03/09/2026 [id number] / / [id number] Adapt Fem Sigma 5d - [id number] Implanted:Qty: 1 on 08/06/2016 by Willi Murphy MD at [facility] Implant Right: Knee DEPUY 03/09/2026 [id number] / / [id number] Slv Fem Univ Por/Full 31mm - [id number] Implanted:Qty: 1 on 08/06/2016 by Willi Murphy MD at [facility] Implant Right: Knee DEPUY 11/06/2025 [id number] / / [id number] Comp Fem Sigma Non Por Tc3 Sz3 Rt - [id number] Implanted:Qty: 1 on 08/06/2016 by Willi Murphy MD at [facility] Implant Right: Knee DEPUY 10/07/2025 [id number] / / [id number] Comp Fem Aug Sigmapfc Dist Sz3 4 Rt - [id number] Implanted:Qty: 1 on 08/06/2016 by Willi Murphy MD at [facility] Implant Right: Knee DEPUY 05/07/2024 [id number] / / [id number] Comp Fem Aug Sigmapfc Dist Sz3 4 Rt - [id number] Implanted:Qty: 1 on 08/06/2016 by Willi Murphy MD at [facility] Implant Right: Knee DEPUY 10/07/2025 [id number] / / [id number] Try Tib Rev Mbt Cmt Sz3 - [id number] Implanted:Qty: 1 on 08/06/2016 by Willi Murphy MD at [facility] Implant Right: Knee DEPUY 11/06/2025 [id number] / / [id number] Slv Try Tib Mbt Rev Por 37mm - [id number] Implanted:Qty: 1 on 08/06/2016 by Willi Murphy MD at [facility] Implant Right: Knee DEPUY 04/06/2026 [id number] / / [id number] Stem Fem Flut Univ 19d18bz - [id number] Implanted:Qty: 1 on 08/06/2016 by Willi Murphy MD at [facility] Implant Right: Knee DEPUY 03/09/2026 [id number] / / [id number] Pat Sigma 3peg Ovl 35mm Sm - [id number] Implanted:Qty: 1 on 08/06/2016 by Willi Murphy MD at [facility] Implant Right: Knee DEPUY 08/06/2020 [id number] / / [id number] Insrt Tib Sigma Rp Tc3 Sz3 10mm - [id number] Implanted:Qty: 1 on 08/06/2016 by Willi Murphy MD at [facility] Implant Right: Knee DEPUY 04/06/2020 [id number] / / [id number] Stnt Xience Elena Everolimus Jarrod 3.76f78sr - [id number] Implanted:Qty: 1 on 10/26/2019 by Kenney De Leon MD at [facility] [id number] / / [id number] Procedures Procedure Name Priority Date/Time Associated Diagnosis Comments LIPID PANEL STAT 10/26/2019 7:43 AM EDT from Last 3 Months or Most Recently Relevant to Health Maintenance Results * (ABNORMAL) Lipid Panel (10/26/2019 7:43 AM EDT) Total Cholesterol 155 0 - 200 mg/dL 10/26/2019 8:29 AM EDT [facility] Triglycerides 244(H) 0 - 150 mg/dL 10/26/2019 8:29 AM EDT [facility] HDL Cholesterol 26(L) 40 - 60 mg/dL 10/26/2019 8:29 AM EDT [facility] LDL Cholesterol 80 0 - 100 mg/dL 10/26/2019 8:29 AM EDT [facility] VLDL Cholesterol 48.8 mg/dL 10/26/19 20 8:29 AM EDT [facility] LDL/HDL Ratio 3.08 10/26/2019 8:29 AM EDT [facility] Blood Line / Unknown 10/26/2019 7: 43 AM EDT 10/26/2019 7:47 AM EDT Narrative [facility] - 10/26/2019 8:29 AM EDT Cholesterol Reference Ranges (U.S. Department of Health and Human Services ATP III Classifications) Desirable <200 mg/dL Borderline High 200-239 mg/dL High Risk >240 mg/dL Triglyceride Reference Ranges (U.S. Department of Health and Human Services ATP III Classifications) Normal <150 mg/dL Borderline High 150-199 mg/dL High 200-499 mg/dL Very High >500 mg/dL HDL Reference Ranges (U.S. Department of Health and Human Services ATP III Classifcations) Low <40 mg/dl (major risk factor for CHD) High >60 mg/dl ('negative' risk factor for CHD) LDL Reference Ranges (U.S. Department of Health and Human Services ATP III Classifcations) Optimal <100 mg/dL Near Optimal 100-129 mg/dL Borderline High 130-159 mg/dL High 160-189 mg/dL Very High >189 mg/dL Deonna Kaplan APRN LAB BLOOD ORDERABLES Final Result [facility]
[address] [place] [address], from Last 3 Months or Most Recently Relevant to Health Maintenance Insurance [employer] MEDICARE ADVANTAGE PPO Advance Directives * Full Code (Latest Code Status on File) Date Activated Date Inactivated Comments 08/06/2016 12:33 PM 08/08/2016 2:29 PM Question Answer Comments Level Of Support Discussed With: Patient * Full Code Date Activated Date Inactivated Comments 05/28/2016 2:18 PM 05/31/2016 8:47 PM * Full Code Date Activated Date Inactivated Comments 05/26/2016 10:40 PM 05/28/2016 2:18 PM * Full Code Date Activated Date Inactivated Comments 08/05/2015 3:05 PM 08/08/2015 4:15 PM Question Answer Comments Level Of Support Discussed With: Patient Care Teams Blood Typer Relationship Specialty Start Date End Date Israel Ugalde MD [address] [facility] [address] [place], [place] [id number] PCP - General Internal Medicine 07/29/15
--- OUTSIDE RECORDS SUMMARY | 2024-09-28 16:06 | XMS_ITS | Encounter Summary ---
Author Organization [facility] Address [address] [place] [id number] Care Team Providers Care Memory Care Program Director Name Role Phone Israel Ugalde MD Primary Care Provider [phone] Encounter Details Date Type Department Care Team (Latest Contact Info) Description 09/11/2024 Travel Social History Tobacco Use Types Packs/Day Years Used Date Smoking Tobacco: Never Smokeless Tobacco: Never Alcohol Use Standard Drinks/Week Comments No 0 (1 standard drink = 0.6 oz pur e alcohol) Sex and Gender Information Value Date Recorded Sex Assigned at Not on file Legal Sex Male 11:54 AM EDT Gender Identity Not on file Sexual Orientation Not on file documented as of this encounter Plan of Treatment Upcoming Encounters Date Type Department Care Team (Late st Contact Info) Description 09/11/2025 9:30 AM EDT Office Visit [facility] [address] [place] [address] Deonna Kaplan, NATE [address] [place] [address] documented as of this encounter Visit Diagnoses Not on filedocumented in this encounter Care Teams Memory Care Program Director Relationship Specialty Start Date End Date Israel Ugalde MD [address] [facility] [address] [place] [address] PCP - General Internal Medicine 07/29/15 documented as of this encounter
[2024-09-28 16:13] LABS: Hematocrit 38.2 % (42.0-52.0); Hemoglobin 12.7 g/dL (14.1-18.0); Immature Granulocytes % 0.5 %; Mean Corpuscular HGB Conc 33.2 g/dL (31.8-35.4); Mean Corpuscular Hemoglobin 29.1 pg (27.0-31.2); Mean Corpuscular Volume 87.4 fl (80-94); Nucleated Red Blood Cells % 0 %; Platelet Count 246 K/mm3 (142-424); Red Blood Count 4.37 M/mm3 (4.60-6.20); Red Cell Distribution Width-SD 39.5 fL; White Blood Count 7.4 K/mm3 (4.8-10.8)
--- NOTE | 2024-09-28 16:17 | XR_ITS ---
PROCEDURE INFORMATION: Exam: XR Chest Exam date and time: 09/28/2024 4:25 PM Age: 84 years old Clinical indication: Shortness of breath; Additional info: Soa/cp TECHNIQUE: Imaging protocol: Radiologic exam of the chest. Views: 1 view. COMPARISON: CR XR RIBS RT MIN 3V W CXR1V 06/11/2024 4:27 PM FINDINGS: Lungs: Minimal linear marking in the left lower lobe is stable consistent with parenchymal scarring. The lungs appear otherwise clear. No focal areas of consolidation. Pleural spaces: No pleural effusions. Negative for pneumothorax. Heart/Mediastinum: Cardiac silhouette and pulmonary vasculature are within range of normal. The aorta demonstrates mild atherosclerotic calcification. Bones/joints: There is no evidence of acute fracture. The thoracic spine demonstrates moderate degenerative changes at multiple levels. IMPRESSION: Negative for an acute cardiopulmonary abnormality. Stable chest radiograph.
[2024-09-28 16:25] LABS: Albumin Level 4.4 g/dl (3.5-5.0); Chloride 113 mmol/L (98-107); Potassium 4.7 mmoL/L (3.5-5.1); Sodium 143 mmol/L (136-145)
[2024-09-28 16:27] LABS: Blood Urea Nitrogen 35 mg/dl (9-20); Creatinine Clearance Estimated 45 mL/min (50-200); Creatinine,Serum 1.40 mg/dl (0.66-1.25); Estimated Glomerular Filt Rate 48 ml/min (>60); GFR (African American) 58 ML/MIN (>60)
[2024-09-28 16:28] LABS: Alanine Aminotransferase 31 U/L (12-78); Albumin/Globulin Ratio 1.4 (1.1-1.8); Alkaline Phosphatase 83 U/L (38-126); Anion Gap 15.7 mEq/L (5-15); Aspartate Amino Transferase 35 U/L (17-59); Bilirubin,Total 0.8 mg/dl (0.2-1.3); Calcium 9.7 mg/dl (8.4-10.2); Carbon Dioxide 19 mmol/L (22.0-30.0); Globulin 3.1 g/dL (1.3-3.2); Glucose 118 mg/dl (74-100); Total Protein,Serum 7.5 g/dl (6.3-8.2)
[2024-09-28 16:29] LABS: Magnesium 1.9 mg/dl (1.6-2.3)
[2024-09-28 16:38] LABS: NT Pro Brain Natriuretic Pep. 2730 pg/mL (0-450)
[2024-09-28 16:43] LABS: Troponin I < 0.01 ng/ml (0.00-0.034)
[2024-09-28] MEDS: ASPIRIN 81MG CHEWABLE TABLET 243 MG PO (17:04)
--- NOTE | 2024-09-28 17:06 | ECG_ITS ---
APPROVED REPORT Exam: Resting ECG HR:80 bpm ECG Measurements Heart Rate 80 AXES QRSd 86 QRS 57 QT 355 T 67 QTc 391 Conclusion Atrial fibrillation Normal axis No QTc prolongaton NO STEMI Electronically signed by : Enrique Moulton, 09/29/2024 01:39:00
[2024-09-28 17:25] LABS: Hepatitis C Ab Qual. W/ RFX NEGATIVE (Negative)
--- NOTE | 2024-09-28 18:00 | PC.NURSE ---
Notified HS of the need for a bed to admit the pt.
[2024-09-28 18:18] LABS: T4 (Thyroxine) 6.2 ug/dl (5.53-11.0)
[2024-09-28 18:32] LABS: Thyroid Stimulating Hormone 1.35 uIU/mL (0.465-4.68)
--- NOTE | 2024-09-28 19:14 | PC.NURSE ---
arrived on unit at 190
--- OUTSIDE RECORDS SUMMARY | 2024-09-28 19:24 | XMS_ITS | Clinical Summary ---
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 (ICD-10-CM ) 06/04 Active 06/04 Laurita W Staphylococcal arthritis, right knee Numbness and tingling in right hand/fingers 70769255 (SNOMED CT) 07/06 Active 07/08 Laurita W [...] of diseases classified elsewhere Benign Essential Hypertension 3369967 (SNOMED CT) 06/04 Active 06/04 Sara Penn Benign essential hypertension Medications Medication Instructions Start Date Stop Date Generic Name NDC Provider DOXYCYCLINE MONOHYDRATE 100 MG CAPS Take one (1) tablet by mouth twice a day DOXYCYCLINE MONOHYDRATE 78749167843 Neli Crance DOXYCYCLINE MONOHYDRATE 100 MG CAPS 1 po bid DOXYCYCLINE MONOHYDRATE 50661970876 Neli Crance DOXYCYCLINE MONOHYDRATE 100 MG CAPS 1 po bid DOXYCYCLINE MONOHYDRATE 69892773797 Dakotah Crespo MD TRIAMCINOLONE ACETONIDE 0.1 % LOTN Use on arms twice daily TRIAMCINOLONE ACETONIDE 22082159897 Dakotah Crespo MD DOXYCYCLINE MONOHYDRATE 100 MG CAPS Take one (1) tablet by mouth twice a day DOXYCYCLINE MONOHYDRATE 54637837520 Dakotah Crespo MD DOXYCYCLINE MONOHYDRATE 100 MG CAPS 1 po bid DOXYCYCLINE MONOHYDRATE 83082401350 Dakotah Crespo MD LEVAQUIN 750 MG ORAL TABLET 1 po qd x 20 day LEVOFLOXACIN 34129083925 Dakotah Crespo MD KEFLEX 500 MG ORAL CAPSULE Take two (2) tablets by mouth twice a day CEPHALEXIN 44487187160 Neli Crance PRAVASTATIN SODIUM 40 MG TABS Take 1 tablet by mouth daily PRAVASTATIN SODIUM 89637702780 Carmelo B COZAAR 50 MG TABS Take 2 tablets by mouth daily LOSARTAN POTASSIUM 11732050485 Carmelo B NORCO 7.5-325 MG ORAL TABLET Take 1 tablet by mouth every 4 hours as needed HYDROCODONE-ACET AMINOPHEN 78435862676 Carmelo B COLACE 100 MG CAPS Take one (1) tablet by mouth twice a day as needed DOCUSATE SODIUM 07456992125 Carmelo B KEFLEX 500 MG ORAL CAPSULE Take two (2) tablets by mouth twice a day CEPHALEXIN 77337694937 Carmelo B ZIAC 5-6.25 MG ORAL TABLET Take 1 tablet by mouth daily BISOPROLOL-HYDRO CHLOROTHIAZIDE 17069569959 Carmelo B ASPIRIN 325 MG TABS Take 1 tablet by mouth daily ASPIRIN 24504242090 Carmelo B ASPIRIN EC 325 MG ORAL TABLET DELAYED RELEASE Take 1 tablet by mouth daily ASPIRIN 52777987285 Carmelo B ZIAC 5-6.25 MG ORAL TABLET Take 1 tablet by mouth daily BISOPROLOL-HYDRO CHLOROTHIAZIDE 21610157438 Carmelo B COLACE 100 MG CAPS Take one (1) tablet by mouth twice a day DOCUSATE SODIUM 53166043574 Carmelo B NORCO 7.5-325 MG ORAL TABLET 1 tablet by mouth every 4 hours as needed HYDROCODONE-ACET AMINOPHEN 40427636764 Carmelo B COZAAR 50 MG TABS Take 2 tabs by mouth daily LOSARTAN POTASSIUM 70063162596 Carmelo B PRAVACHOL 40 MG ORAL TABLET Take 1 tablet by mouth daily PRAVASTATIN SODIUM 04096199989 Carmelo B CEFAZOLIN SODIUM-DEXTROSE 2-5 GM/100ML-% SOLN 2gm IV q 8hrs [employer]/No Dressing & labs at apt. per CEFAZOLIN IN D5W [id number] [facility] CEFAZOLIN SODIUM-DEXTROSE 2-5 GM/100ML-% SOLN 2gm IV q 8hrs [employer]/No Dressing & labs at apt. per CEFAZOLIN IN D5W 85483887002 [facility] PRAVACHOL 40 MG ORAL TABLET Take 1 tablet by mouth daily PRAVASTATIN SODIUM 87378292716 Carmelo B COZAAR 50 MG TABS Take 2 tabs by mouth daily LOSARTAN POTASSIUM 31970676294 Carmelo B NORCO 7.5-325 MG ORAL TABLET 1 tablet by mouth every 4 hours as needed HYDROCODONE-ACET AMINOPHEN 04859627385 Carmelo B COLACE 100 MG CAPS Take one (1) tablet by mouth twice a day DOCUSATE SODIUM 52465219921 Carmelo B ZIAC 5-6.25 MG ORAL TABLET Take 1 tablet by mouth daily BISOPROLOL-HYDRO CHLOROTHIAZIDE 48408197527 Carmelo B ASPIRIN EC 325 MG ORAL TABLET DELAYED RELEASE Take 1 tablet by mouth daily ASPIRIN 07366196862 Carmelo B Medications Administered No information available. [...] smoking status SMOK STATUS Never smoker Toba outside sales account representative smoking status Lab Report: CBC WITH AUTO [...] Procedures Code Procedure Name Date Entry Date CPT-05987 [facility] [id number] CBC with Differential 2017 CPT-96999 Sedimentation Rate (ESR) 201 09/13/03 CPT-85374 C- reactive protein CPT-95596 [facility] [id number] CBC with Differential 2016 CPT-09223 C- reactive protein CPT-83111 Sedimentation Rate (ESR) 201 08/17/20 CPT-83695 Sedimentation Rate (ESR) 201 08/18/19 CPT-58899 C- reactive protein [id number] CBC with Differential 2016 CPT-37854 BMP CPT-sl STAT Labs CPT-Cooral Continue oral antibiotics 24/10/24 CPT-88339 CMP [id number] CBC with Differential 2016 CPT-06380 C- reactive protein CPT-28795 Sedimentation Rate (ESR) 201 08/15/24 CPT-Cooral Continue oral antibiotics 23/09/00 CPT-calvin New Oral Antibiotic CPT-calvin New Oral Antibiotic CPT-01941 BMP [id number] CBC with Differential 2016 CPT-57117 C- reactive protein CPT-32676 Sedimentation Rate (ESR) 201 08/13/10 CPT-19574 Urinalysis with microscopic exam CPT-90217 Urine Culture & Sensitivity CPT-PICREM PICC Removal CPT-ca Continue IV antibiotics 2016 CPT-cwl Weekly Labs (Continue) 07/06 CPT-wpc Weekly PICC Line Care 07/06 [id number] CBC with Differential 2016 CPT-58031 C- reactive protein CPT-95376 Sedimentation Rate (ESR) 201 08/11/29 CPT-79045 BMP CPT-ca Continue IV antibiotics 2016 CPT-ca Continue IV antibiotics 2016 CPT-cwl Weekly Labs (Continue) 06/22 CPT-wpc Weekly PICC Line Care 06/22 CPT-ca Continue IV antibiotics 2016 CPT-wpc Weekly PICC Line Care 06/15 CPT-cwl Weekly Labs (Continue) 06/15 CPT-41810 BMP [id number] CBC with Differential 2016 CPT-24760 C- reactive protein CPT-99624 Sedimentation Rate (ESR) 201 08/11/08 CPT-sl STAT [...]
--- OUTSIDE RECORDS SUMMARY | 2024-09-28 19:24 | XMS_ITS | Encounter Summary ---
Author Organization [facility] Address [address] [place] [id number] Care Team Providers Care Scrap Preparer Name Role Phone Israel Ugalde MD Primary Care Provider [phone] Encounter Details Date Type Department Care Team [...] Description 09/11/2025 9:30 AM EDT Office Visit [facility] [address] [place] [address] Deonna Kaplan, NATE [address] [place] [address] documented as of this encounter Visit Diagnoses Not on filedocumented in this encounter Care Teams Scrap Preparer Relationship Specialty Start Date End Date Israel Ugalde MD [address] [facility] [address] [place] [address] PCP - General Internal Medicine 07/29/15 documented as of this encounter
--- OUTSIDE RECORDS SUMMARY | 2024-09-28 19:24 | XMS_ITS | Clinical Summary ---
Author Organization [facility] Address [address] [place] [address] Care Team Providers Care Windsmith Name Role Phone Israel Ugalde MD Primary Care Provider [phone] Allergies Active Allergy Reactions Criticality Noted Date [...] Diagnosed Date Coronary artery disease invo lving hughes coronary artery of hughes heart without angina pectoris 11/28/2019 Abnormal myocardial perfusion study 10/22/2019 Overview (10/22/2019): Added automatically from request for surgery [id number] Infection 08/06/2016 Hyperlipidemia 08/06/2016 Prediabetes 08/06/2016 S/P [...] Description 09/11/2024 9:45 AM EDT Office Visit [facility] C[facility] [address] [place] [address] Kenney De Leon MD Coronary artery disease involving hughes coronary artery of hughes heart without angina pectoris (Primary Dx) 09/11/2024 [...] Description 09/11/2025 9:30 AM EDT Office Visit [facility] C[facility] [address] [place] [address] Deonna Kaplan, TREE [employer] [address] [place] [address] Health Maintenance Due Date Last Done Comments TDAP/TD VACCINES (1 - Tdap) 06/22/1958 Pneumococcal Vaccine 50+ (1 of 1 - PCV) 06/22/1989 ZOSTER VACCINE (1 of 2) 06/22/1989 RSV Vaccine - Adults (1 - 1- dose 75+ series) 06/22/2014 ANNUAL WELLNESS VISIT 05/27/2016 LIPID PANEL 10/25/2020 10/26/2019 COVID-19 Vaccine ( - season) 2023, 04/05/2020 INFLUENZA VACCINE 11/07/2024 04/11/2024 Medical Devices Implanted 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 Device Identifier Shelf Expiration Date Model / Serial / Lot Cmt Bone Smartmix Gmv Gent 40gr - [id number] Implanted:Qty: 1 on 08/05/2015 by Willi Murphy MD at [facility] Implant Left: Knee DEPUY 10/07/2016 [id number] / / Comp Fem Attune Cmt Ps Sz7 Rt - [id number] Implanted:Qty: 1 on 08/05/2015 by Willi Murphy MD at [facility] Implant Right: Knee DEPUY 03/09/2025 [id number] / / [id number] Comp Pat Attune Cmt Medl Sindhu 41mm - [id number] Implanted:Qty: 1 on 08/05/2015 by Willi Murphy MD at [facility] Implant Right: Knee DEPUY 03/09/2020 [id number] / / [id number] Insrt Tib Attune Ps Rp Sz7 6mm - [id number] Implanted:Qty: 1 on 08/05/2015 by Willi Murphy MD at [facility] Implant Right: Knee DEPUY 02/07/2020 [id number] / / [id number] Totl Kn Attune Depuy - [id number] Implanted:Qty: 1 on 08/05/2015 by Willi Murphy MD at [facility] Implant Left: Knee DEPUY CAPKNEETOTAL DEP5 / / Totl Kn Attune Depuy - [id number] Implanted:Qty: 1 on 08/05/2015 by Willi Murphy MD at [facility] Implant Right: Knee DEPUY CAPKNEETOTAL DEP5 / / Cmt Bone Smartmix Gmv Gent 40gr - [id number] Implanted:Qty: 1 on 08/05/2015 by Willi Murphy MD at [facility] Implant Left: Knee DEPUY 07/07/2016 [id number] / / Cmt Bone Smartmix Gmv Gent 40gr - [id number] Implanted:Qty: 1 on 08/05/2015 by Willi Murphy MD at [facility] Implant Right: Knee DEPUY 10/07/2016 [id number] / / Cmt Bone Smartmix Gmv Gent 40gr - [id number] Implanted:Qty: 1 on 08/05/2015 by Willi Murphy MD at [facility] Implant Right: Knee DEPUY 10/07/2016 [id number] / / Base Tib Attune Cmt Rp Sz7 - [id number] Implanted:Qty: 1 on 08/05/2015 by Willi Murphy MD at [facility] Implant Left: Knee DEPUY 06/06/2025 [id number] / / [id number] Comp Fem Attune Cmt Ps Sz7 Lt - [id number] Implanted:Qty: 1 on 08/05/2015 by Willi Murphy MD at [facility] Implant Left: Knee DEPUY 05/07/2025 [id number] / / [id number] Comp Pat Attune Cmt Medl Sindhu 41mm - [id number] Implanted:Qty: 1 on 08/05/2015 by Willi Murphy MD at [facility] Implant Left: Knee DEPUY 04/06/2020 [id number] / / [id number] Insrt Tib Attune Ps Rp Sz7 6mm - [id number] Implanted:Qty: 1 on 08/05/2015 by Willi Murphy MD at [facility] Implant Left: Knee DEPUY 10/08/2019 [id number] / / [id number] Base Tib Attune Cmt Rp Sz7 - [id number] Implanted:Qty: 1 on 08/05/2015 by Willi Murphy MD at [facility] Implant Right: Knee DEPUY 05/07/2025 [id number] / / [id number] Bone Filler Void Rapd Cure Stimulan 25cc - [id number] Implanted:Qty: 1 on 05/28/2016 by Willi Murphy MD at [facility] Implant Right: Knee BIOCOMPOSITES 10/07/2018 [id number] / / [id number] [facility] Bone Endurance Smartset 40gm - [id number] Implanted:Qty: 2 on 05/28/2016 by Willi Murphy MD at [facility] Implant Right: Knee DEPUY 02/06/2018 [id number] / / [id number] [facility] Bone Endurance Smartset 40gm - [id number] Implanted:Qty: 1 on 05/28/2016 by Willi Murphy MD at [facility] Implant Right: Knee DEPUY 12/20/2017 [id number] / / [id number] Spacr Kn Interspace Gent 1.3gm 64 Md - [id number] Implanted:Qty: 1 on 05/28/2016 by Willi Murphy MD at [facility] Implant Right: Knee TECRES SPA 02/06/2019 [id number] / / [id number] [facility] Bone Simplex Ro Ful Dose - [id number] Implanted:Qty: 2 on 08/06/2016 by Willi Murphy MD at [facility] Implant Right: Knee BEBETO EDUARDA 02/06/2019 [id number] / / [id number] Stem Fem Flut Univ 37g69rl - [id number] Implanted:Qty: 1 on 08/06/2016 by Willi Murphy MD at [facility] Implant Right: Knee DEPUY 08/06/2025 [id number] / / [id number] [place] Stem Fem Sigma Offst Wadpt Pls/Min2 - [id number] Implanted:Qty: 1 on 08/06/2016 by Willi Murphy MD at [facility] Implant Right: Knee DEPUY 03/09/2026 [id number] / / [id number] Adapt Fem Sigma 5d - [id number] Implanted:Qty: 1 on 08/06/2016 by Willi Murphy MD at [facility] Implant Right: Knee DEPUY 03/09/2026 [id number] / / [id number] Slv Fem Univ Por/Full 31mm - [id number] Implanted:Qty: 1 on 08/06/2016 by Willi Murphy MD at [facility] Implant Right: Knee DEPUY 11/06/2025 [id number] / / [id number] Comp Fem Sigma Non Por Tc3 Sz3 Rt - [id number] Implanted:Qty: 1 on 08/06/2016 by Willi Murphy MD at [facility] Implant Right: Knee DEPUY 10/07/2025 [id number] / / [id number] Comp Fem Aug Sigmapfc Dist Sz3 4 Rt - [id number] Implanted:Qty: 1 on 08/06/2016 by Willi Murphy MD at [facility] Implant Right: Knee DEPUY 05/07/2024 [id number] / / [id number] Comp Fem Aug Sigmapfc Dist Sz3 4 Rt - [id number] Implanted:Qty: 1 on 08/06/2016 by Willi Murphy MD at [facility] Implant Right: Knee DEPUY 10/07/2025 [id number] / / [id number] Try Tib Rev Mbt Cmt Sz3 - [id number] Implanted:Qty: 1 on 08/06/2016 by Willi Murphy MD at [facility] Implant Right: Knee DEPUY 11/06/2025 [id number] / / [id number] Slv Try Tib Mbt Rev Por 37mm - [id number] Implanted:Qty: 1 on 08/06/2016 by Willi Murphy MD at [facility] Implant Right: Knee DEPUY 04/06/2026 [id number] / / [id number] Stem Fem Flut Univ 28f19us - [id number] Implanted:Qty: 1 on 08/06/2016 by Willi Murphy MD at [facility] Implant Right: Knee DEPUY 03/09/2026 [id number] / / [id number] Pat Sigma 3peg Ovl 35mm Sm - [id number] Implanted:Qty: 1 on 08/06/2016 by Willi Murphy MD at [facility] Implant Right: Knee DEPUY 08/06/2020 [id number] / / [id number] Insrt Tib Sigma Rp Tc3 Sz3 10mm - [id number] Implanted:Qty: 1 on 08/06/2016 by Willi Murphy MD at [facility] Implant Right: Knee DEPUY 04/06/2020 [id number] / / [id number] Stnt Xience Elena Everolimus Jarrod 3.43p00uk - [id number] Implanted:Qty: 1 on 10/26/2019 by Kenney De Leon MD at [facility] [id number] / / [id number] Procedures Procedure Name Priority Date/Time Associated Diagnosis Comments LIPID PANEL STAT 10/26/2019 7:43 AM EDT from Last 3 Months or Most Recently Relevant to Health Maintenance Results * (ABNORMAL) Lipid Panel (10/26/2019 7:43 AM EDT) Total Cholesterol 155 0 - 200 mg/dL 10/26/2019 8:29 AM EDT [facility] Triglycerides 244(H) 0 - 150 mg/dL 10/26/2019 8:29 AM EDT [facility] HDL Cholesterol 26(L) 40 - 60 mg/dL 10/26/2019 8:29 AM EDT [facility] LDL Cholesterol 80 0 - 100 mg/dL 10/26/2019 8:29 AM EDT [facility] VLDL Cholesterol 48.8 mg/dL 10/26/19 20 8:29 AM EDT [facility] LDL/HDL Ratio 3.08 10/26/2019 8:29 AM EDT [facility] Blood Line / Unknown 10/26/2019 7: 43 AM EDT 10/26/2019 7:47 AM EDT Narrative [facility] - 10/26/2019 8:29 AM EDT Cholesterol [...] Kaplan APRN LAB BLOOD ORDERABLES Final Result [facility]
[address] [place] [address], from Last 3 Months or Most Recently [...] Of Support Discussed With: Patient Care Teams Windsmith Relationship Specialty Start Date End Date Israel Ugalde MD [address] [facility] [address] [facility] [place] [address] PCP - General Internal Medicine 07/29/15
--- NOTE | 2024-09-28 20:13 | P.HP_ITS ---
<Statement entered by Kingsley Denise MD - 09/28/24 20:43> Rounded on patient just prior to nurse practitioner. Personally examined and interviewed patient. Agree with exam findings and care plan as documented. History of Present Illness *Admission Date: 09/28/24 *Reason for visit:: Chest pain and dizziness *History of present illness: This is an 84-year-old man with a past medical history of CAD, hypertension, hyper lipidemia, CKD who presents emergency department today with dizziness and chest tightness. Was found to be in A-fib with RVR. Patient reports feeling at his normal state of health into the last several days when he has had some episodes of dizziness. Also reports chest tightness in the upper chest that radiates from right to left shoulder. States that he is had systolic blood pressures less than 100 at home. Reports that he keeps a accurate log of his blood pressures daily. Did not check his heart rate during this time. Did endorse mild diaphoresis intermittently otherwise no nausea vomiting. Denies any falls with the dizziness. Emergency Department workup notable for A-fib with RVR with heart rate in the 130s. Elevated BNP of 2700, creatinine of 1.4. Patient spontaneously converted to normal sinus rhythm and is currently in and out of rate controlled A-fib, normal sinus with PACs. Given his new onset A-fib is felt he would benefit from hospitalization. Admitted to hospital service at this time. [facility] Disclaimer: The information contained in this section may have been updated after the patient was seen, as this information can be updated by other users. Medical History Hypertension History of heart attack Surgical History History of knee replacement History of heart artery stent Family History Other Cancer Social History Smoking Status: Never smoker alcohol intake: never substance use type: denies use current occupational status: retired Travel in the last 8 weeks?: None household members: spouse and none housing: house marital status: current occupational exposures/hazards: No caffeine: Yes Have you lived/traveled outside US in past 30 days?: No Contact w/someone who lives/traveled outside US past 30 days?: No Exposure to someone with infectious disease in past 14 days?: No Do you have a fever (greater than 100.4 F or 38 C)?: No Have you tested positive for COVID-19?: No Exposed to someone with COVID-19 in past 14 days?: No Do you have a sore throat?: No Do you have a cough?: No Do you have any weakness?: No Do you have any diarrhea?: No Are you experiencing any unusual bleeding?: No Do you have any muscle aches/pain?: No Do you have any abdominal pain?: No Are you experiencing loss of taste or smell?: No Other Medical History Have you received the Flu Vaccine for this season: No Have you received the Pneumonia Vaccine: Yes Review of Systems Review of Systems Review of systems:: pertinent systems reviewed and negative unless documented below Review of systems (narrative): Negative except for HPI Meds Home Medications and Allergies Home Medications ?Medication ?Instructions ?Recorded ?Confirmed ?Type coenzyme Q10 10 mg capsule 10 mg PO DAILY Supplement 0 08/28/18 09/13/24 History glucosamine sulfate 2KCl 1,000 mg 1,000 mg PO DAILY Reyes pplement 08/28/18 09/13/24 History tablet aspirin 81 mg tablet,delayed 81 mg PO DAILY 06/09/20 0 09/13/24 History release losartan 100 See Rx Instructions .Route 0 07/09/24 09/13/24 Rx mg-hydrochlorothiazide 25 mg tablet .COMPLEX #90 tabs bisoprolol 5 See Rx Instructions .Route 0 07/10/24 09/13/24 Rx mg-hydrochlorothiazide 6.25 mg .COMPLEX #90 tabs tablet rosuvastatin 10 mg tablet 10 mg PO DAILY #90 tabs 07/0 08/3109/13/24 Rx clopidogrel 75 mg tablet 75 mg PO DAILY #90 tabs /09/13/24 Rx triamcinolone acetonide 0.1 % 1 applic topical TID PRN rash 09/18/24 Rx topical cream #453.6 grams New Prescriptions to Start Prescriptions: Allergies Allergy/AdvReac Type Severity Reaction Status Date / Time Penicillins Allergy Verified 09/13/24 12:37 Exam Data for Last 24 hours Vital signs and Labs for Last 24 Hours: Temp Pulse Resp BP Pulse Ox O2 Del Method 97.8 F 78 16 128/75 95 Room Air 09/28/24 19:17 09/28/24 19:17 09/28/24 19:17 09/28/24 19:17 09/28/24 19:17 09/28/24 19:17 Laboratory Results - last 24 hr 09/28/24 16:00: WBC 7.4, RBC 4.37 L, Hgb 12.7 L, Hct 38.2 L, MCV 87.4, MCH 29.1, MCHC 33.2, RDW 12.3, Plt Count 246, MPV 10.0, Neut % (Auto) 58.1, Lymph % (Auto) 29.3, [place] % (Auto) 9.1, Eos % (Auto) 2.6, Baso % (Auto) 0.4, Neut # (Auto) 4.3, Lymph # (Auto) 2.2, [place] # (Auto) 0.7, Eos # (Auto) 0.2, Baso # (Auto) 0.0, Sodium 143, Potassium 4.7, Chloride 113 H, Carbon Dioxide 19 L, Anion Gap 15.7 H , BUN 35 H, Creatinine 1.40 H, Estimated Creat Clear 45, Estimated GFR 48 L, Est GFR ( Amer) 58 L, Glucose 118 H, Calcium 9.7, Magnesium 1.9, Total Bilirubin 0.8, AST 35, ALT 31, Alkaline Phosphatase 83, Troponin I < 0.01, NT-Pro-B Natriuret Pep 2730 H, Total Protein 7.5, Albumin 4.4, Globulin 3.1, Albumin/Globulin Ratio 1.4, TSH 1.35, Thyroxine (T4) 6.2, HCV Ab WENDY w/Rflx PCR Qn Negative, HIV Ag/Ab Combo Qual Negative I & O for Last 24 hours: Intake & Output 09/25/24 09/26/24 09/27/24 09/28/24 23:59 23:59 23:59 23:59 Weight 71.866 kg Constitutional Constitutional: no acute distress *Routine HEENT Exam Head: Present normocephalic Eye: Present EOMI and PERRL ENT: Present mucous membranes moist *Routine Neck Exam Neck: Present supple; Absent lymphadenopathy *Routine Respiratory Exam Respiratory: Present CTA bilaterally *Routine Cardiovascular Exam Cardiovascular: Present RRR *Routine Abdominal Exam Abdominal: Present soft and normoactive bowel sounds; Absent tenderness *Routine Rectal Exam Rectal:: deferred *Routine Genitalia Exam Genitalia:: deferred *Routine Extremities Exam Extremities: Absent cyanosis, clubbing or edema *Routine Skin Exam Skin: Present warm; Absent rash *Routine Neurological Exam Neurological: Present alert and oriented X3 Assessment and Plan *Assessment and plan (1) Atrial fibrillation: Status: Acute Category: Medical Code(s): I48.91 - Unspecified atrial fibrillation (2) Elevated brain natriuretic peptide (BNP) level: Status: Acute Category: Medical Code(s): R79.89 - Other specified abnormal findings of blood chemistry (3) Hyperlipidemia: Status: Chronic Category: Medical Code(s): E78.5 - Hyperlipidemia, unspecified (4) Atherosclerotic heart disease of [place] coronary artery without angina pectoris: Status: Chronic Category: Medical Code(s): I25.10 - Atherosclerotic heart disease of [place] coronary artery without angina pectoris (5) Hypertension: Status: Chronic Qualifiers: Hypertension type: unspecified Qualified Code(s): I10 - Essential (primary) hypertension Category: Medical Code(s): I10 - Essential (primary) hypertension (6) CKD (chronic kidney disease) stage 3, GFR 30-59 ml/min: Status: Acute Category: Medical Code(s): N18.30 - Chronic kidney disease, stage 3 unspecified Plan #Atrial fibrillation with RVR Spontaneously converted to normal sinus rhythm with intermittent episodes of A- fib with controlled rate. Currently heart rate in the 80s. Patient reports increased amount of stress recently. Has had dizziness and chest pressure for several days Echocardiogram in a.m. or when able Will initiate therapeutic Lovenox Cardiology consult in a.m. Low-dose metoprolol twice daily Continue DAPT #Elevated BNP Likely secondary to new onset A-fib. Echocardiogram in a.m. No overt signs of overload at this time. Will trial with 1 dose of Lasix and monitor urine output #CKD stage IIIa Creatinine 1.4 with a baseline around 1.1. Monitor renal function with diuresis. Avoid nephrotoxic medication #Hypertension #Hyperlipidemia Resume home medications once reconciled #CAD Per patient, history of the maker . Received stent approximately 7 years ago. EKG nonischemic at this time. Continue DAPT
[2024-09-28 20:22] LABS: Troponin I 0.01 ng/ml (0.00-0.034)
[2024-09-28] MEDS: ATORVASTATIN 20MG TABLET 10 MG PO (21:24)
[2024-09-29] VITALS (19 sets, daily range): BP systolic 95–158; BP diastolic 43–77; PULSE 48–72; RESP 12–20; TEMP 36.4–36.8; O2SAT 94–99; BMI 23.2
[2024-09-29 05:59] LABS: Hematocrit 32.0 % (42.0-52.0); Immature Granulocytes % 0.5 %; Mean Corpuscular HGB Conc 32.8 g/dL (31.8-35.4); Mean Corpuscular Hemoglobin 29.0 pg (27.0-31.2); Mean Corpuscular Volume 88.4 fl (80-94); Nucleated Red Blood Cells % 0 %; Platelet Count 198 K/mm3 (142-424); Red Blood Count 3.62 M/mm3 (4.60-6.20); Red Cell Distribution Width-SD 39.8 fL; White Blood Count 5.9 K/mm3 (4.8-10.8)
[2024-09-29 06:05] LABS: Albumin Level 3.7 g/dl (3.5-5.0); Chloride 112 mmol/L (98-107); Potassium 4.8 mmoL/L (3.5-5.1); Sodium 140 mmol/L (136-145)
[2024-09-29 06:07] LABS: Blood Urea Nitrogen 30 mg/dl (9-20); Creatinine Clearance Estimated 48 mL/min (50-200); Creatinine,Serum 1.20 mg/dl (0.66-1.25); Estimated Glomerular Filt Rate 58 ml/min (>60); GFR (African American) 70 ML/MIN (>60)
[2024-09-29 06:08] LABS: Alanine Aminotransferase 21 U/L (12-78); Albumin/Globulin Ratio 1.4 (1.1-1.8); Alkaline Phosphatase 80 U/L (38-126); Anion Gap 10.8 mEq/L (5-15); Aspartate Amino Transferase 25 U/L (17-59); Bilirubin,Total 0.4 mg/dl (0.2-1.3); Calcium 9.0 mg/dl (8.4-10.2); Carbon Dioxide 22 mmol/L (22.0-30.0); Cholesterol 78 mg/dl (140-200); Globulin 2.7 g/dL (1.3-3.2); Glucose 97 mg/dl (74-100); HDL Cholesterol 24 mg/dl (40-60); Magnesium 2.0 mg/dl (1.6-2.3); Total Protein,Serum 6.4 g/dl (6.3-8.2); Triglycerides 131 mg/dl (30-150)
--- NOTE | 2024-09-29 06:53 | PC.NURSE ---
Patient is resting in bed with HOB elevated and NAD noted in condition. Patient is now Sinus [place] with a 1st degree AVB with occ PAC's. Patient has denied any Chest Pain, pain, and SOA throughout the night. Patient has been resting periodically. Patient has had some periods throughout out the night of crying, yet when asked and inquired about if patient is ok or to see what the issue may be, patient denies anything and does not wish to speak at those time. Patient has been pleasant and very cooperative for staff. Patient has been sleeping in periods with out any issues noted and or expressed to staff. Patient has and is currently on the bed alarm and calls for assistance when getting up to the bed side commode and to use the urinal.
[2024-09-29 07:45] LABS: Hemoglobin 10.5 g/dL (14.1-18.0)
[2024-09-29] MEDS: CLOPIDOGREL 75MG TAB 75 MG PO (08:44)
[2024-09-29] MEDS: ASPIRIN EC 81MG TABLET 81 MG PO (08:44)
--- NOTE | 2024-09-29 11:30 | HMH.PHAINT1 ---
Pharmacy Intervention Comments: COMPARED MED LIST TO FILL HX.
--- NOTE | 2024-09-29 17:15 | P.PN_ITS ---
Subjective *Date: 09/29/24 *Time: 17:15 Interval history: seen at bedside, no fevers overnight, denied CP, SOB, no complains today Exam Data for Last 24 hours Vital signs and Labs for Last 24 Hours: Temp Pulse Resp BP Pulse Ox O2 Del Method 98.3 F 53 L 13 129/60 98 Room Air 09/29/24 16:00 09/29/24 16:00 09/29/24 16:00 09/29/24 16:00 09/29/24 16:00 09/29/24 16:50 Laboratory Results - last 24 hr 09/28/24 16:00: TSH 1.35, Thyroxine (T4) 6.2, HCV Ab WENDY w/Rflx PCR Qn Negative, HIV Ag/Ab Combo Qual Negative 09/28/24 19:40: Troponin I 0.01 09/29/24 04:41: WBC 5.9, RBC 3.62 L, Hgb 10.5 L D, Hct 32.0 L, MCV 88.4, MCH 29.0, MCHC 32.8, RDW 12.4, Plt Count 198, MPV 10.2, Neut % (Auto) 44.8, Lymph % (Auto) 40.4, [place] % (Auto) 9.6 H, Eos % (Auto) 4.2, Baso % (Auto) 0.5, Neut # (Auto) 2.6, Lymph # (Auto) 2.4, [place] # (Auto) 0.6, Eos # (Auto) 0.3, Baso # (Auto) 0.0, Sodium 140, Potassium 4.8, Chloride 112 H, Carbon Dioxide 22, Anion Gap 10.8, BUN 30 H, Creatinine 1.20, Estimated Creat Clear 48, Estimated GFR 58 L, Est GFR ( Amer) 70 D, Glucose 97, Calcium 9.0, Magnesium 2.0, Total Bilirubin 0.4, AST 25 D, ALT 21 D, Alkaline Phosphatase 80, Total Protein 6.4, Albumin 3.7 D, Globulin 2.7, Albumin/Globulin Ratio 1.4, Triglycerides 131, Cholesterol 78 L, LDL Cholesterol Direct < 30.00 L, VLDL Cholesterol 26, HDL Cholesterol 24 L, Cholesterol/HDL Ratio 3.3 I & O for Last 24 hours: Intake & Output 09/26/24 09/27/24 09/28/24 08/23/25 23:59 23:59 23:59 23:59 Intake Total 360 / 600 760 / 760 Output Total 475 / 475 950 / 950 Balance -115 / 125 -190 / -190 Weight 71.866 kg 75.342 kg Constitutional Constitutional: no acute distress *Routine HEENT Exam Head: Present normocephalic Eye: Present EOMI and PERRL ENT: Present mucous membranes moist *Routine Neck Exam Neck: Present supple; Absent lymphadenopathy *Routine Respiratory Exam Respiratory: Present CTA bilaterally *Routine Cardiovascular Exam Cardiovascular: Present RRR *Routine Abdominal Exam Abdominal: Present soft and normoactive bowel sounds; Absent tenderness *Routine Extremities Exam Extremities: Absent cyanosis, clubbing or edema *Routine Skin Exam Skin: Present warm; Absent rash *Routine Neurological Exam Neurological: Present alert and oriented X3 Assessment and Plan *Assessment and plan (1) Atrial fibrillation: Status: Acute Category: Medical Code(s): I48.91 - Unspecified atrial fibrillation (2) Elevated brain natriuretic peptide (BNP) level: Status: Acute Category: Medical Code(s): R79.89 - Other specified abnormal findings of blood chemistry (3) Hyperlipidemia: Status: Chronic Category: Medical Code(s): E78.5 - Hyperlipidemia, unspecified (4) Atherosclerotic heart disease of [place] coronary artery without angina pectoris: Status: Chronic Category: Medical Code(s): I25.10 - Atherosclerotic heart disease of [place] coronary artery without angina pectoris (5) Hypertension: Status: Chronic Qualifiers: Hypertension type: unspecified Qualified Code(s): I10 - Essential (primary) hypertension Category: Medical Code(s): I10 - Essential (primary) hypertension (6) CKD (chronic kidney disease) stage 3, GFR 30-59 ml/min: Status: Acute Category: Medical Code(s): N18.30 - Chronic kidney disease, stage 3 unspecified Plan #Atrial fibrillation with RVR Spontaneously converted to normal sinus rhythm with intermittent episodes of A- fib with controlled rate. Echocardiogram in a.m. or when able Will initiate therapeutic Lovenox Cardiology consult in a.m. Low-dose metoprolol twice daily Continue DAPT #Elevated BNP Likely secondary to new onset A-fib. Echocardiogram pending. #CKD stage IIIa Creatinine 1.4 with a baseline around 1.1. Monitor renal function with diuresis. Avoid nephrotoxic medication #Hypertension #Hyperlipidemia Resume home medications once reconciled #CAD Per patient, history of the maker . Received stent approximately 7 years ago. EKG nonischemic at this time. Continue DAPT await echocardiogram, discussed with cardiology, may need cardiac cath, dc 1-2 days pending improvement
--- NOTE | 2024-09-29 18:08 | PC.NURSE ---
Report given to GLENDY Eric.
--- NOTE | 2024-09-29 18:10 | PC.NURSE ---
Patient transferred via ambulatory to Medical Surgical room 209 accompanied by ICU staff.
[2024-09-29] MEDS: ATORVASTATIN 10MG TABLET 10 MG PO (20:38)
[2024-09-29] MEDS: HYDROCORTISONE 2.5% CREAM 28GM TUBE TP (22:53)
[2024-09-30] VITALS (7 sets, daily range): BP systolic 128–146; BP diastolic 66–74; PULSE 50–71; RESP 16; TEMP 36.4–36.6; O2SAT 96–99; BMI 22.4
[2024-09-30] MEDS: CLOPIDOGREL 75MG TAB 75 MG PO (08:37)
[2024-09-30] MEDS: ASPIRIN EC 81MG TABLET 81 MG PO (08:37)
--- NOTE | 2024-09-30 16:53 | P.PN_ITS ---
Subjective *Date: 09/30/24 *Time: 16:53 Interval history: seen at bedside, no fevers overnight, denied CP, SOB, no complains today Exam Data for Last 24 hours Vital signs and Labs for Last 24 Hours: Temp Pulse Resp BP Pulse Ox O2 Del Method 97.7 F 61 16 146/72 H 99 Room Air 09/30/24 11:59 09/30/24 12:00 09/30/24 11:59 09/30/24 11:59 09/30/24 11:59 09/30/24 15:05 I & O for Last 24 hours: Intake & Output 09/27/24 09/28/24 09/29/24 09/30/24 23:59 23:59 23:59 23:59 Intake Total 360 / 600 880 / 1120 1060 / 1060 Output Total 475 / 475 950 / 950 0 / 0 Balance -115 / 125 -70 / 170 1060 / 1060 Weight 71.866 kg 75.342 kg 72.83 kg Constitutional Constitutional: no acute distress *Routine HEENT Exam Head: Present normocephalic Eye: Present EOMI and PERRL ENT: Present mucous membranes moist *Routine Neck Exam Neck: Present supple; Absent lymphadenopathy *Routine Respiratory Exam Respiratory: Present CTA bilaterally *Routine Cardiovascular Exam Cardiovascular: Present RRR *Routine Abdominal Exam Abdominal: Present soft and normoactive bowel sounds; Absent tenderness *Routine Extremities Exam Extremities: Absent cyanosis, clubbing or edema *Routine Skin Exam Skin: Present warm; Absent rash *Routine Neurological Exam Neurological: Present alert and oriented X3 Assessment and Plan *Assessment and plan (1) Atrial fibrillation: Status: Acute Category: Medical Code(s): I48.91 - Unspecified atrial fibrillation (2) Elevated brain natriuretic peptide (BNP) level: Status: Acute Category: Medical Code(s): R79.89 - Other specified abnormal findings of blood chemistry (3) Hyperlipidemia: Status: Chronic Category: Medical Code(s): E78.5 - Hyperlipidemia, unspecified (4) Atherosclerotic heart disease of [place] coronary artery without angina pectoris: Status: Chronic Category: Medical Code(s): I25.10 - Atherosclerotic heart disease of [place] coronary artery without angina pectoris (5) Hypertension: Status: Chronic Qualifiers: Hypertension type: unspecified Qualified Code(s): I10 - Essential (primary) hypertension Category: Medical Code(s): I10 - Essential (primary) hypertension (6) CKD (chronic kidney disease) stage 3, GFR 30-59 ml/min: Status: Acute Category: Medical Code(s): N18.30 - Chronic kidney disease, stage 3 unspecified Plan #Atrial fibrillation with RVR Echocardiogram in a.m. or when able initiated therapeutic Lovenox Cardiology consulted Low-dose metoprolol twice daily Continue DAPT #Elevated BNP Likely secondary to new onset A-fib. Echocardiogram pending. #CKD stage IIIa Creatinine 1.4 with a baseline around 1.1. Monitor renal function on diuresis. Avoid nephrotoxic medications #Hypertension #Hyperlipidemia Resume home medications once reconciled #CAD Per patient, history of the maker . Received stent approximately 7 years ago. EKG nonischemic at this time. Continue DAPT await echocardiogram, discussed with cardiology, they will see patient tomorrow, sunny urbano tomorrow
--- NOTE | 2024-09-30 17:01 | PC.NURSE ---
pt is A&Ox4. pt came to ER and his EKG showed a fib with RVR. he was admitted for observation and will see cardiology tomorrow. pt has not had any episodes today with heart palpitations. pt has been up walking up and down the halls independently throughout this shift. pt has no other needs at this time. call light is within reach.
[2024-09-30] MEDS: ATORVASTATIN 10MG TABLET 10 MG PO (21:37)
[2024-10-01] VITALS: BP 123/84; PULSE 60; PULSE 61; RESP 16; TEMP 36.4; O2SAT 98
[2024-10-01 04:00] VITALS: BP 137/70; PULSE 60; PULSE 62; RESP 16; TEMP 36.4; O2SAT 97; BMI 22.1
--- NOTE | 2024-10-01 06:00 | CA_ITS ---
APPROVED REPORT EXAM: Comprehensive 2D, Doppler, and color-flow Echocardiogram Interpretive Program Coordinator: Inez Gracia RDCS Ht: 5 ft 10 in Wt: 160lbs BSA: 1.90 BP: 128/75 mmHg Indications: NEW ONSET AF M-Mode Dimensions RVDd 2.87 cm (0.9-2.6) LA Diam 3.55 cm (1.9-4.0) LVDd 4.80 cm (3.5-5.7) LVDs 3.35 cm (3.5-5.7) IVSd 0.85 cm (0.6-1.1) PWd 0.85 cm (0.6-1.1) EF (Teich) 57.40% FS 30.20% EDV (Teich) 107.50 mL ESV (Teich) 45.80 mL LV Diastology E Decel Time 195 (160-240 msec) E/A Ratio 0.9 Mitral Valve MV E Max Bryan. 58.0 (40-130 cm/s) MV A Velocity 63.0 (40-130 cm/s) E/A Ratio 0.91 MV PHT 57.0 ms Left Ventricle The left ventricle is normal size. Left ventricular systolic function is normal. The left ventricular ejection fraction is within the normal range. There is increased left ventricular wall thickness. There is normal LV segmental wall motion. The left ventricular diastolic function is indeterminate. LVEF is 60% Right Ventricle The right ventricle is mildly dilated. The right ventricular systolic function is normal. Atria The left atrium is mildly dilated. The right atrium is mildly dilated. There is no color Doppler evidence of interatrial shunt. Aortic Valve The aortic valve opens well. There is no hemodynamically significant aortic valvular stenosis. No aortic regurgitation is present. Mitral Valve The mitral valve is normal in structure. No evidence of mitral valve stenosis. Trace mitral regurgitation is present. Tricuspid Valve The tricuspid valve leaflets are thin and pliable. Trace tricuspid regurgitation. There is insufficient TR jet to estimate RVSP. Pulmonic Valve The pulmonary valve is grossly normal in structure. Trace pulmonic valve regurgitation is present. Great Vessels The aortic root is normal in size. IVC is normal in size and collapses >50% with inspiration. Pericardium There is no pericardial effusion. Other Information Study Quality: Fair Conclusion Normal biventricular systolic function. Mild RV dilation. Mild biatrial dilation. No significant valvular stenosis or regurgitation. Electronically signed by : Nneka Saldana MD 10/01/2024 12:12:17
[2024-10-01 06:25] LABS: Hematocrit 35.4 % (42.0-52.0); Hemoglobin 12.3 g/dL (14.1-18.0); Immature Granulocytes % 0.4 %; Mean Corpuscular HGB Conc 34.7 g/dL (31.8-35.4); Mean Corpuscular Hemoglobin 29.9 pg (27.0-31.2); Mean Corpuscular Volume 85.9 fl (80-94); Nucleated Red Blood Cells % 0 %; Platelet Count 211 K/mm3 (142-424); Red Blood Count 4.12 M/mm3 (4.60-6.20); Red Cell Distribution Width-SD 37.8 fL; White Blood Count 5.3 K/mm3 (4.8-10.8)
[2024-10-01 06:30] LABS: Chloride 110 mmol/L (98-107)
[2024-10-01 06:31] LABS: Potassium 4.3 mmoL/L (3.5-5.1); Sodium 139 mmol/L (136-145)
[2024-10-01 06:34] LABS: Anion Gap 11.3 mEq/L (5-15); Blood Urea Nitrogen 24 mg/dl (9-20); Calcium 9.7 mg/dl (8.4-10.2); Carbon Dioxide 22 mmol/L (22.0-30.0); Creatinine Clearance Estimated 56 mL/min (50-200); Creatinine,Serum 1.00 mg/dl (0.66-1.25); Estimated Glomerular Filt Rate 71 ml/min (>60); GFR (African American) 86 ML/MIN (>60); Glucose 99 mg/dl (74-100)
[2024-10-01 07:51] VITALS: BP 169/73; PULSE 63; RESP 18; TEMP 36.4; O2SAT 99
[2024-10-01 08:00] VITALS: PULSE 57; PULSE 80
[2024-10-01] MEDS: ASPIRIN EC 81MG TABLET 81 MG PO (09:07)
[2024-10-01] MEDS: CLOPIDOGREL 75MG TAB 75 MG PO (09:07)
--- NOTE | 2024-10-01 10:10 | EXP.CARD.CON ---
History of Present Illness History of Present Illness Consult date: 10/01/24 Requesting physician: Kingsley Denise Chief complaint: Chest pain, dizzines, generalized weakness History of present illness: Hospitalist note: This is an 84-year-old man with a past medical history of CAD, hypertension, hyperlipidemia, CKD who presents emergency department today with dizziness and chest tightness. Was found to be in A-fib with RVR. Patient reports feeling at his normal state of health into the last several days when he has had some episodes of dizziness. Also reports chest tightness in the upper chest that radiates from right to left shoulder. States that he is had systolic blood pressures less than 100 at home. Reports that he keeps a accurate log of his blood pressures daily. Did not check his heart rate during this time. Did endorse mild diaphoresis intermittently otherwise no nausea vomiting. Denies any falls with the dizziness. Emergency Department workup notable for A-fib with RVR with heart rate in the 130s. Elevated BNP of 2700, creatinine of 1.4. Patient spontaneously converted to normal sinus rhythm and is currently in and out of rate controlled A-fib, normal sinus with PACs. Given his new onset A-fib is felt he would benefit from hospitalization. Admitted to hospital service at this time. Cardiology note: This morning patient remains in normal sinus rhythm with heart rate in the 50s. He reports that his symptoms have resolved. Denies dizziness, generalized weakness or chest pain at this time. He states he follows with Dr. Pennington at [facility] and would like to continue to see him there. Troponin negative. Echocardiogram pending. [facility] Disclaimer: The information contained in this section may have been updated after the patient was seen, as this information can be updated by other users. Medical History Hypertension History of heart attack Surgical History History of knee replacement History of heart artery stent Family History Other Cancer Social History Smoking Status: Never smoker alcohol intake: never substance use type: denies use current occupational status: retired Travel in the last 8 weeks?: None household members: spouse and none housing: house marital status: current occupational exposures/hazards: No caffeine: Yes Have you lived/traveled outside [place] in past 30 days?: No Contact w/someone who lives/traveled outside US past 30 days?: No Exposure to someone with infectious disease in past 14 days?: No Do you have a fever (greater than 100.4 F or 38 C)?: No Have you tested positive for COVID-19?: No Exposed to someone with COVID-19 in past 14 days?: No Do you have a sore throat?: No Do you have a cough?: No Do you have any weakness?: No Do you have any diarrhea?: No Are you experiencing any unusual bleeding?: No Do you have any muscle aches/pain?: No Do you have any abdominal pain?: No Are you experiencing loss of taste or smell?: No Review of Systems Review of Systems Review of systems:: pertinent systems reviewed and negative unless documented below Exam Data for Last 24 hours Vital signs and Labs for Last 24 Hours: Temp Pulse Resp BP Pulse Ox O2 Del Method 97.6 F 57 L 18 169/73 H 99 Room Air 10/01/24 07:51 10/01/24 08:00 10/01/24 07:51 10/01/24 07:51 10/01/24 07:51 10/01/24 09:00 Laboratory Results - last 24 hr 10/01/24 05:50: WBC 5.3, RBC 4.12 L, Hgb 12.3 L, Hct 35.4 L, MCV 85.9, MCH 29.9, MCHC 34.7, RDW 12.0, Plt Count 211, MPV 9.9, Neut % (Auto) 47.8, Lymph % (Auto) 34.7, [place] % (Auto) 11.0 H, Eos % (Auto) 5.3, Baso % (Auto) 0.8, Neut # (Auto) 2.5, Lymph # (Auto) 1.8, [place] # (Auto) 0.6, Eos # (Auto) 0.3, Baso # (Auto) 0.0, Sodium 139, Potassium 4.3, Chloride 110 H, Carbon Dioxide 22, Anion Gap 11.3, BUN 24 H, Creatinine 1.00, Estimated Creat Clear 56, Estimated GFR 71, Est GFR ( Amer) 86 D, Glucose 99, Calcium 9.7 I & O for Last 24 hours: Intake & Output 09/28/24 09/29/24 09/30/24 10/01/24 23:59 23:59 23:59 23:59 Intake Total 360 / 600 880 / 1120 1280 / 1520 640 / 640 Output Total 475 / 475 950 / 950 0 / 0 0 / 0 Balance -115 / 125 -70 / 170 1280 / 1520 640 / 640 Weight 158 lb 7 oz 166 lb 1.6 oz 160 lb 9 oz 158 lb 9 oz Constitutional Constitutional: no acute distress *Routine Respiratory Exam Respiratory: Present CTA bilaterally and symmetric chest movement *Routine Cardiovascular Exam Cardiovascular: Present RRR, Normal S1 and Normal S2 *Routine Abdominal Exam Abdominal: Present soft and normoactive bowel sounds; Absent tenderness *Routine Extremities Exam Extremities: Present full ROM and normal capillary refill; Absent edema *Routine Skin Exam Skin: Present intact, dry and warm Detailed Neck Exam: Thyroids Thyroid: Absent bruit Meds Home Medications and Allergies Home Medications ?Medication ?Instructions ?Recorded ?Confirmed ?Type coenzyme Q10 10 mg capsule 10 mg PO DAILY Supplement 08/28/18 09/28/24 History glucosamine sulfate 2KCl 1,000 mg 1,000 mg PO DAILY Supplement 08/28/18 09/28/24 History tablet aspirin 81 mg tablet,delayed 81 mg PO DAILY 06/09/20 09/28/24 History release rosuvastatin 10 mg tablet 10 mg PO DAILY #90 tabs 08/13/24 09/28/24 Rx clopidogrel 75 mg tablet 75 mg PO DAILY #90 tabs 09/05/24 09/28/24 Rx losartan 100 1 tab PO DAILY 09/28/24 09/29/24 History mg-hydrochlorothiazide 25 mg tablet magnesium 200 mg tablet 200 mg PO DAILY 09/28/24 09/28/24 History potassium 99 mg tablet 99 mg PO DAILY 09/28/24 09/28/24 History zinc 50 mg capsule 50 mg PO DAILY 09/28/24 09/28/24 History bisoprolol 5 1 tab PO DAILY 09/29/24 09/29/24 History mg-hydrochlorothiazide 6.25 mg tablet triamcinolone acetonide 0.1 % 1 applic topical TIDP PRN rash 09/29/24 09/29/24 History topical cream New Prescriptions to Start Prescriptions: Allergies Allergy/AdvReac Type Severity Reaction Status Date / Time Penicillins Allergy Verified 09/13/24 12:37 Assessment and Plan *Assessment and plan (1) CKD (chronic kidney disease) stage 3, GFR 30-59 ml/min: Status: Acute Category: Medical Code(s): N18.30 - Chronic kidney disease, stage 3 unspecified (2) Elevated brain natriuretic peptide (BNP) level: Status: Acute Category: Medical Code(s): R79.89 - Other specified abnormal findings of blood chemistry (3) Atrial fibrillation: Status: Acute Category: Medical Code(s): I48.91 - Unspecified atrial fibrillation Plan New onset A-fib History of coronary artery disease Converted to normal sinus rhythm on own Continue metoprolol tartrate 12.5 mg p.o. twice daily Echocardiogram: Normal biventricular systolic function with no significant valvular stenosis or regurg Troponin negative EKG negative for STEMI Start Eliquis 5 mg p.o. twice daily Continue statin and Plavix CV summary 10/01/2024: Patient is CV stable for discharge home. Please send patient home in a 2-week event monitor and have patient follow-up in cardiology clinic in 2 to [address] De Leon at [facility]: Lipitor 10 mg p.o. daily Plavix 75 mg p.o. daily Metoprolol tartrate 12.5 mg p.o. twice daily Eliquis 5 mg p.o. twice daily
[2024-10-01 12:00] VITALS: BP 135/68; PULSE 64; RESP 20; TEMP 36.4; O2SAT 96
--- NOTE | 2024-10-01 13:16 | EXP.DC.SUM ---
General Admission date:: 09/28/24 HPI HPI HPI: This is an 84-year-old man with a past medical history of CAD, hypertension, hyper lipidemia, CKD who presents emergency department today with dizziness and chest tightness. Was found to be in A-fib with RVR. Patient reports feeling at his normal state of health into the last several days when he has had some episodes of dizziness. Also reports chest tightness in the upper chest that radiates from right to left shoulder. States that he is had systolic blood pressures less than 100 at home. Reports that he keeps a accurate log of his blood pressures daily. Did not check his heart rate during this time. Did endorse mild diaphoresis intermittently otherwise no nausea vomiting. Denies any falls with the dizziness. Emergency Department workup notable for A-fib with RVR with heart rate in the 130s. Elevated BNP of 2700, creatinine of 1.4. Patient spontaneously converted to normal sinus rhythm and is currently in and out of rate controlled A-fib, normal sinus with PACs. Given his new onset A-fib is felt he would benefit from hospitalization. Admitted to hospital service at this time. Hospital Course Hospital Course Hospital Course: Kingsley Hall is a 84-year-old male who presented with lightheadedness, chest pressure and was admitted for new onset A-fib RVR. #Paroxysmal A-fib, new onset #RVR, resolved ? Presented with heart rate in the 130s in A-fib. Spontaneously converted in the ED, then asymptomatic. ? Cardiology consulted, recommended metoprolol tartrate 12.5 mg twice daily, Eliquis 5 mg twice daily. ? ECHO, TSH unremarkable. #Elevated BNP Likely secondary to new onset A-fib. No evidence of heart failure on ECHO. #ISHA on CKD stage IIIa Creatinine 1.4 with a baseline around 1.1. Return to baseline with improvement in A-fib RVR. #CAD with stent #Hypertension #Hyperlipidemia ? Discontinued combination bisoprolol?hydrochlorothiazide as metoprolol started as above, continue home losartan?hydrochlorothiazide 100-25 mg. ? Continue home Plavix, rosuvastatin. Discontinued home aspirin as Eliquis started as above per cardiology recommendations. Total time spent on discharge: 35 minutes on chart review, counseling, documentation, and direct care with patient. Exam Data for Last 24 hours Vital signs and Labs for Last 24 Hours: Temp Pulse Resp BP Pulse Ox O2 Del Method 97.5 F L 64 20 135/68 96 Room Air 10/01/24 12:00 10/01/24 12:00 10/01/24 12:00 10/01/24 12:00 10/01/24 12:00 10/01/24 12:00 Laboratory Results - last 24 hr 10/01/24 05:50: WBC 5.3, RBC 4.12 L, Hgb 12.3 L, Hct 35.4 L, MCV 85.9, MCH 29.9, MCHC 34.7, RDW 12.0, Plt Count 211, MPV 9.9, Neut % (Auto) 47.8, Lymph % (Auto) 34.7, [place] % (Auto) 11.0 H, Eos % (Auto) 5.3, Baso % (Auto) 0.8, Neut # (Auto) 2.5, Lymph # (Auto) 1.8, [place] # (Auto) 0.6, Eos # (Auto) 0.3, Baso # (Auto) 0.0, Sodium 139, Potassium 4.3, Chloride 110 H, Carbon Dioxide 22, Anion Gap 11.3, BUN 24 H, Creatinine 1.00, Estimated Creat Clear 56, Estimated GFR 71, Est GFR ( Amer) 86 D, Glucose 99, Calcium 9.7 I & O for Last 24 hours: Intake & Output 09/28/24 09/29/24 09/30/24 10/01/24 23:59 23:59 23:59 23:59 Intake Total 360 / 600 880 / 1120 1280 / 1520 640 / 640 Output Total 475 / 475 950 / 950 0 / 0 0 / 0 Balance -115 / 125 -70 / 170 1280 / 1520 640 / 640 Weight 71.866 kg 75.342 kg 72.83 kg 71.923 kg Constitutional Constitutional: no acute distress *Routine HEENT Exam Head: Present normocephalic Eye: Present EOMI and PERRL ENT: Present mucous membranes moist *Routine Neck Exam Neck: Present supple; Absent lymphadenopathy *Routine Respiratory Exam Respiratory: Present CTA bilaterally *Routine Cardiovascular Exam Cardiovascular: Present RRR *Routine Abdominal Exam Abdominal: Present soft and normoactive bowel sounds; Absent tenderness *Routine Extremities Exam Extremities: Absent cyanosis, clubbing or edema *Routine Skin Exam Skin: Present warm; Absent rash *Routine Neurological Exam Neurological: Present alert and oriented X3 Results Data Completed and Pending Labs on day of discharge: Labs from last 24 hours 10/01/24 05:50 WBC 5.3 RBC 4.12 L Hgb 12.3 L Hct 35.4 L MCV 85.9 MCH 29.9 MCHC 34.7 RDW 12.0 Plt Count 211 MPV 9.9 Neut % (Auto) 47.8 Lymph % (Auto) 34.7 [place] % (Auto) 11.0 H Eos % (Auto) 5.3 Baso % (Auto) 0.8 Neut # (Auto) 2.5 Lymph # (Auto) 1.8 [place] # (Auto) 0.6 Eos # (Auto) 0.3 Baso # (Auto) 0.0 Sodium 139 Potassium 4.3 Chloride 110 H Carbon Dioxide 22 Anion Gap 11.3 BUN 24 H Creatinine 1.00 Estimated Creat Clear 56 Estimated GFR 71 Est GFR ( Amer) 86 D Glucose 99 Calcium 9.7 DS: Diagnosis Discharge Diagnosis (1) CKD (chronic kidney disease) stage 3, GFR 30-59 ml/min: Status: Acute Code(s): N18.30 - Chronic kidney disease, stage 3 unspecified (2) Elevated brain natriuretic peptide (BNP) level: Status: Acute Code(s): R79.89 - Other specified abnormal findings of blood chemistry (3) Atrial fibrillation: Status: Acute Code(s): I48.91 - Unspecified atrial fibrillation Meds Home Medications and Allergies Home Medications ?Medication ?Instructions ?Recorded ?Confirmed ?Type coenzyme Q10 10 mg capsule 10 mg PO DAILY Supplement 08/28/18 09/28/24 History glucosamine sulfate 2KCl 1,000 mg 1,000 mg PO DAILY Supplement 08/28/18 09/28/24 History tablet rosuvastatin 10 mg tablet 10 mg PO DAILY #90 tabs 08/13/24 09/28/24 Rx clopidogrel 75 mg tablet 75 mg PO DAILY #90 tabs 09/05/24 09/28/24 Rx losartan 100 1 tab PO DAILY 09/28/24 09/29/24 History mg-hydrochlorothiazide 25 mg tablet magnesium 200 mg tablet 200 mg PO DAILY 09/28/24 09/28/24 History potassium 99 mg tablet 99 mg PO DAILY 09/28/24 09/28/24 History zinc 50 mg capsule 50 mg PO DAILY 09/28/24 09/28/24 History triamcinolone acetonide 0.1 % 1 applic topical TIDP PRN rash 09/29/24 09/29/24 History topical cream apixaban 5 mg tablet (Eliquis) 5 mg PO BID 30 days #60 tabs 10/01/24 Rx metoprolol tartrate 25 mg tablet 12.5 mg (1/2 x 25 mg) PO BID 30 10/01/24 Rx days #30 tabs New Prescriptions to Start Prescriptions: nancyxaban [Eliquis] Hernesto Noguera metoprolol tartrate Hernesto Noguera Allergies Allergy/AdvReac Type Severity Reaction Status Date / Time Penicillins Allergy Verified 09/13/24 12:37 Discharge Plan Disposition Patient Disposition: Home, Self-Care Condition: Fair Follow up Plan Prescriptions/Medication Reconciliation: New metoprolol tartrate 25 mg Tablet 12.5 mg PO BID 30 Days Qty: 30 0RF Eliquis 5 mg tablet 5 mg PO BID 30 Days Qty: 60 0RF Continued rosuvastatin 10 mg tablet 10 mg PO DAILY Qty: 90 1RF clopidogrel 75 mg tablet 75 mg PO DAILY Qty: 90 1RF Rx Instructions: TAKE 1 TABLET BY MOUTH ONCE DAILY coenzyme Q10 10 MG capsule 10 mg PO DAILY glucosamine sulfate 2KCl 1,000 MG tablet 1,000 mg PO DAILY potassium 99 mg Tablet 99 mg PO DAILY magnesium 200 mg Tablet 200 mg PO DAILY losartan-hydrochlorothiazide 100-25 mg tablet 1 tab PO DAILY Rx Instructions: 100-25 zinc 50 mg Capsule 50 mg PO DAILY triamcinolone acetonide 0.1 % cream 1 applic topical TIDP PRN (Reason: rash) Discontinued aspirin 81 MG tablet,delayed release (DR/EC) 81 mg PO DAILY bisoprolol-hydrochlorothiazide 5-6.25 mg tablet 1 tab PO DAILY Rx Instructions: TAKE 1 TABLET BY MOUTH ONCE DAILY Problem Reconciliation Problems Reviewed?: Yes Patient Discharge Instructions Patient Instructions: DI for Atrial Fibrillation Print Language: Serbian Providers Primary Care Provider: Israel Ugalde Admit Provider: Kingsley Denise Attending Provider: Kingsley Denise
--- NOTE | 2024-10-02 10:30 | SW/DCPLANNER ---
Spoke with patient on the phone. Patient stated that he is good. Patient stated that he did get his new medicine picked up. Patient stated that he has a appointment with DR Ugalde today. Patient stated that he has no concerns or questions at this time. Cory Dean
== END 2024-10-01 14:11 | disposition home or self-care (01) ==
LOC: ER 18:10 → ICU 09-29 01:18 → 2ND 09-30 16:26 → ICU 09-30 16:26
PROVIDERS: Internal Medicine; Physician Assistant; Admitting Provider Internal Medicine Adolescent Medicine; Emergency Provider Student in an Organized Health Care Education/Training Program; PCP Internal Medicine; Visit Provider Internal Medicine Adolescent Medicine
DX: I48.0 Paroxysmal atrial fibrillation (principal); R79.89 Other specified abnormal findings of blood chemistry; E78.5 Hyperlipidemia, unspecified; I25.10 Atherosclerotic heart disease of native coronary artery without angina pectoris; I12.9 Hypertensive chronic kidney disease with stage 1 through stage 4 chronic kidney disease, or unspecified chronic kidney disease; N18.31 Chronic kidney disease, stage 3a; N17.9 Acute kidney failure, unspecified; I25.2 Old myocardial infarction; Z95.5 Presence of coronary angioplasty implant and graft; Z79.02 Long term (current) use of antithrombotics/antiplatelets; Z88.0 Allergy status to penicillin; Z79.899 Other long term (current) drug therapy
CPT/HCPCS: 36415; 71045; 80048; 80053; 80061; 83735; 83880; 84436; 84443; 84484; 85025; 86803; 87389; 93005; 93306; 96374; 96375; 99284; G0378; J1650

== ENCOUNTER 2024-10-02 14:01 | Outpatient (CLI) | payer MEDICARE, SELFPAY ==
--- OUTSIDE RECORDS SUMMARY | 2006-12-17 05:57 | XMS_ITS | Continuity of Care Document ---
Author Organization [facility] Address [address] [address] Phone Care Team Providers Care Trolley Operator Name Role Phone Unavailable Unavailable Unavailable Procedures Procedure Date Offic/outpt E&m Estab Minor 10 Ophth Serv: Exam-eval; Interme Advance Directives Directive Yes / No Effective Date File Name Resuscitation Not Answered N/A N/A Life Support Not Answered N/A N/A Intubation Not Answered N/A N/A Antibiotics Not Answered N/A N/A IV Fluid Support Not Answered N/A N/A Tube Feed Not Answered N/A N/A Other Directive N/A N/A WARNING:The information contained in this section is historical and is provided for information only and does not constitute a legal document or any assurance that the information is still accurate. Please verify the information with the lu of the legal document before using it for clinical purposes. Encounters Encounter Description Practice Location Reason(s) For Visit Diagnoses Date Provider Providers Copied on Encounter Offic/outpt E&m Estab Minor 10 [facility], [address], [id number], tel:[phone] [facility] No Information No Information [facility], [address], [id number], tel:[phone] [facility] No Information Maxi Valdez. [address], [id number], . tel:[phone] Referring Provider: José Miguel German [place] E, [address] [address] [address], [place], [address] . tel:[phone] Family History Family Member Type Diagnosis Age At Onset No Information Payers Payer name Insurance type Covered green party ID Authorgermán maravilla(s) Medicare [place] [id number] Social History Type Description Quantity Date Captured Comments Alcohol Use Details Unknown Caffeine Use Details Unknown Tobacco Use Status No Information Smoking Status No Information Sex Male Chief Complaint And Reason For Visit No Information Reason For Referral Reason For Referral No Information History Of Present Illness Encounter Date Complaint History Of Prese nt Illness No Information Functional Status Date Functional Assessmen t No Information Instructions Date Instruction Additional Infor mation No Information Assessments Type Assessment Date No Information Patient Care Teams Name Effective Dates (start - stop) Status Members No Information
--- OUTSIDE RECORDS SUMMARY | 2024-09-11 09:45 | XMS_ITS | Encounter Summary ---
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 Coronary artery disease involving [place] coronary artery of [place] heart without angina pectoris(Primary) 1. Coronary artery [...] (not in EMR), copy requested. Dictated utilizing [employer] dictation documented in this encounter Plan of Treatment Upcoming Encounters Date Type Department Care Team (Late st Contact Info) Description 09/11/2025 9:30 AM EDT Office Visit [facility] [address] [place] [address] Deonna Kaplan, NATE [address] [place] [address] documented as of this encounter Visit Diagnoses Diagnosis Coronary artery disease involving [place] coronary artery of [place] heart without angina pectoris- Primary documented in this encounter Care Teams Chute Tapper Relationship Specialty Start Date End Date Israel Ugalde MD [address] [facility] [address] [place] [address] PCP - General Internal Medicine 07/29/15 documented as of this encounter
--- OUTSIDE RECORDS SUMMARY | 2024-10-02 14:04 | XMS_ITS | Clinical Summary ---
Author Organization [facility] Address [address] [place] [address] Care Team Providers Care Compass Operator Name Role Phone Israel Ugalde MD Primary Care Provider [phone] Allergies Active Allergy Reactions Criticality Noted Date [...] Diagnosed Date Coronary artery disease invo lving [place] coronary artery of [place] heart without angina pectoris 11/28/2019 Abnormal myocardial perfusion study 10/22/2019 Overview (10/22/2019): Added automatically from request for surgery [id number] Infection 08/06/2016 Hyperlipidemia 08/06/2016 Prediabetes 08/06/2016 S/P [...] Description 09/11/2024 9:45 AM EDT Office Visit [facility] [address] [place] [place] [address] Kenney De Leon MD Coronary artery disease involving [place] coronary artery of [place] heart without angina pectoris (Primary Dx) 09/11/2024 [...] Description 09/11/2025 9:30 AM EDT Office Visit [facility] [address] [place] [address] Deonna Kaplan, WATER SOFTENER INSTALLER [address] [place] [address] Health Maintenance Due Date Last [...] 11/07/2024 04/11/2024 Medical Devices Implanted Type Area Text Transcriber Device Identifier Shelf Expiration Date Model / Serial / Lot Cmt Bone Smartmix Gmv Gent 40gr - [id number] Implanted:Qty: 1 on 08/05/2015 by Willi Murphy MD at [facility] Implant Left: Knee DEPUY 10/07/2016 [id number] / / Comp Fem Attune Cmt Ps Sz7 Rt - [id number] Implanted:Qty: 1 on 08/05/2015 by Willi Murphy MD at [facility] Implant Right: Knee DEPUY 03/09/2025 [id number] / / [id number] Comp Pat Attune Cmt Medl Sindhu 41mm - [id number] Implanted:Qty: 1 on 08/05/2015 by Willi Murphy MD at [facility] Implant Right: Knee DEPUY 03/09/2020 [id number] / / [id number] Insrt Tib Attune Ps Rp Sz7 6mm - [id number] Implanted:Qty: 1 on 08/05/2015 by Willi Murphy MD at [facility] Implant Right: Knee DEPUY 02/07/2020 [id number] / / [id number] Totl Kn Attune Depuy - [id number] Implanted:Qty: 1 on 08/05/2015 by Willi Murphy MD at [facility] Implant Left: Knee DEPUY CAPKNEETOTAL DEP5 / / Totl Kn Attune Depuy - [id number] Implanted:Qty: 1 on 08/05/2015 by Willi Murphy MD at [facility] Implant Right: Knee DEPUY CAPKNEETOTAL DEP5 / / Cmt Bone Smartmix Gmv Gent 40gr - [id number] Implanted:Qty: 1 on 08/05/2015 by Willi Murphy MD at [facility] Implant Left: Knee DEPUY 07/07/2016 [id number] / / Cmt Bone Smartmix Gmv Gent 40gr - [id number] Implanted:Qty: 1 on 08/05/2015 by Willi Murphy MD at [facility] Implant Right: Knee DEPUY 10/07/2016 [id number] / / Cmt Bone Smartmix Gmv Gent 40gr - [id number] Implanted:Qty: 1 on 08/05/2015 by Willi Murphy MD at [facility] Implant Right: Knee DEPUY 10/07/2016 [id number] / / Base Tib Attune Cmt Rp Sz7 - [id number] Implanted:Qty: 1 on 08/05/2015 by Willi Murphy MD at [facility] Implant Left: Knee DEPUY 06/06/2025 [id number] / / [id number] Comp Fem Attune Cmt Ps Sz7 Lt - [id number] Implanted:Qty: 1 on 08/05/2015 by Willi Murphy MD at [facility] Implant Left: Knee DEPUY 05/07/2025 [id number] / / [id number] Comp Pat Attune Cmt Medl Sindhu 41mm - [id number] Implanted:Qty: 1 on 08/05/2015 by Willi Murphy MD at [facility] Implant Left: Knee DEPUY 04/06/2020 [id number] / / [id number] Insrt Tib Attune Ps Rp Sz7 6mm - [id number] Implanted:Qty: 1 on 08/05/2015 by Willi Murphy MD at [facility] Implant Left: Knee DEPUY 10/08/2019 [id number] / / [id number] Base Tib Attune Cmt Rp Sz7 - [id number] Implanted:Qty: 1 on 08/05/2015 by Willi Murphy MD at [facility] Implant Right: Knee DEPUY 05/07/2025 [id number] / / [id number] Bone Filler Void Rapd Cure Stimulan 25cc - [id number] Implanted:Qty: 1 on 05/28/2016 by Willi Murphy MD at [facility] Implant Right: Knee BIOCOMPOSITES 10/07/2018 [id number] / / [id number] [facility] Bone Endurance Smartset 40gm - [id number] Implanted:Qty: 2 on 05/28/2016 by Willi Murphy MD at [facility] Implant Right: Knee DEPUY 02/06/2018 [id number] / / [id number] [facility] Bone Endurance Smartset 40gm - [id number] Implanted:Qty: 1 on 05/28/2016 by Willi Murphy MD at [facility] Implant Right: Knee DEPUY 12/20/2017 [id number] / / [id number] Spacr Kn Interspace Gent 1.3gm 64 Md - [id number] Implanted:Qty: 1 on 05/28/2016 by Willi Murphy MD at [facility] Implant Right: Knee TECRES SPA 02/06/2019 [id number] / / [id number] [facility] Bone Simplex Ro Ful Dose - [id number] Implanted:Qty: 2 on 08/06/2016 by Willi Murphy MD at [facility] Implant Right: Knee BEBETO EDUARDA 02/06/2019 [id number] / / [id number] Stem Fem Flut Univ 79z38tx - [id number] Implanted:Qty: 1 on 08/06/2016 by Willi Murphy MD at [facility] Implant Right: Knee DEPUY 08/06/2025 [id number] / / [id number] Telf[employer] Stem Fem Sigma Offst Wadpt Pls/Min2 - [id number] Implanted:Qty: 1 on 08/06/2016 by Willi Murphy MD at [facility] Implant Right: Knee DEPUY 03/09/2026 [id number] / / [id number] Adapt Fem Sigma 5d - [id number] Implanted:Qty: 1 on 08/06/2016 by Willi Murphy MD at [facility] Implant Right: Knee DEPUY 03/09/2026 [id number] / / [id number] Slv Fem Univ Por/Full 31mm - [id number] Implanted:Qty: 1 on 08/06/2016 by Willi Murphy MD at [facility] Implant Right: Knee DEPUY 11/06/2025 [id number] / / [id number] Comp Fem Sigma Non Por Tc3 Sz3 Rt - [id number] Implanted:Qty: 1 on 08/06/2016 by Willi Murphy MD at [facility] Implant Right: Knee DEPUY 10/07/2025 [id number] / / [id number] Comp Fem Aug Sigmapfc Dist Sz3 4 Rt - [id number] Implanted:Qty: 1 on 08/06/2016 by Willi Murphy MD at [facility] Implant Right: Knee DEPUY 05/07/2024 [id number] / / [id number] Comp Fem Aug Sigmapfc Dist Sz3 4 Rt - [id number] Implanted:Qty: 1 on 08/06/2016 by Willi Murphy MD at [facility] Implant Right: Knee DEPUY 10/07/2025 [id number] / / [id number] Try Tib Rev Mbt Cmt Sz3 - [id number] Implanted:Qty: 1 on 08/06/2016 by Willi Murphy MD at [facility] Implant Right: Knee DEPUY 11/06/2025 [id number] / / [id number] Slv Try Tib Mbt Rev Por 37mm - [id number] Implanted:Qty: 1 on 08/06/2016 by Willi Murphy MD at [facility] Implant Right: Knee DEPUY 04/06/2026 [id number] / / [id number] Stem Fem Flut Univ 61g45rn - [id number] Implanted:Qty: 1 on 08/06/2016 by Willi Murphy MD at [facility] Implant Right: Knee DEPUY 03/09/2026 [id number] / / [id number] Pat Sigma 3peg Ovl 35mm Sm - [id number] Implanted:Qty: 1 on 08/06/2016 by Willi Murphy MD at [facility] Implant Right: Knee DEPUY 08/06/2020 [id number] / / [id number] Insrt Tib Sigma Rp Tc3 Sz3 10mm - [id number] Implanted:Qty: 1 on 08/06/2016 by Willi Murphy MD at [facility] Implant Right: Knee DEPUY 04/06/2020 [id number] / / [id number] Stnt Xience Elena Everolimus Jarrod 3.04s08qx - [id number] Implanted:Qty: 1 on 10/26/2019 by Kenney De Leon MD at [facility] [id number] / / [id number] Procedures Procedure Name Priority Date/Time Associated Diagnosis Comments LIPID PANEL STAT 10/26/2019 7:43 AM EDT from Last 3 Months or Most Recently Relevant to Health Maintenance Results * (ABNORMAL) Lipid Panel (10/26/2019 7:43 AM EDT) Total Cholesterol 155 0 - 200 mg/dL 10/26/2019 8:29 AM EDT [facility] Triglycerides 244(H) 0 - 150 mg/dL 10/26/2019 8:29 AM EDT [facility] HDL Cholesterol 26(L) 40 - 60 mg/dL 10/26/2019 8:29 AM EDT [facility] LDL Cholesterol 80 0 - 100 mg/dL 10/26/2019 8:29 AM EDT [facility] VLDL Cholesterol 48.8 mg/dL 10/26/19 20 8:29 AM EDT [facility] LDL/HDL Ratio 3.08 10/26/2019 8:29 AM EDT [facility] Blood Line / Unknown 10/26/2019 7: 43 AM EDT 10/26/2019 7:47 AM EDT Narrative [facility] - 10/26/2019 8:29 AM EDT [...] Kaplan APRN LAB BLOOD ORDERABLES Final Result [facility]
[address] [place] [address], from Last 3 Months or Most Recently [...] Of Support Discussed With: Patient Care Teams Compass Operator Relationship Specialty Start Date End Date Israel Ugalde MD [address] [facility] [address] [place] [address] PCP - General Internal Medicine 07/29/15
--- OUTSIDE RECORDS SUMMARY | 2024-10-02 14:04 | XMS_ITS | Encounter Summary ---
Author Organization [facility] Address [address] [place] [id number] Care Team Providers Care Air Defense Control Officer Name Role Phone Israel Ugalde MD Primary Care Provider [phone] Encounter Details Date Type Department Care Team [...] Description 09/11/2025 9:30 AM EDT Office Visit [facility] [address] [place] [address] Deonna Kaplan, NATE [address] [place] [address] documented as of this encounter Visit Diagnoses Not on filedocumented in this encounter Care Teams Air Defense Control Officer Relationship Specialty Start Date End Date Israel Ugalde MD [address] [facility] [address] [place] [address] PCP - General Internal Medicine 07/29/15 documented as of this encounter
--- OUTSIDE RECORDS SUMMARY | 2024-10-02 14:04 | XMS_ITS | Clinical Summary ---
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 (ICD-10-CM ) 06/04 Active 06/04 Laurita W Staphylococcal arthritis, right knee Numbness and tingling in right hand/fingers 47973229 (SNOMED CT) 07/06 Active 07/08 Laurita W [...] of diseases classified elsewhere Benign Essential Hypertension 7556506 (SNOMED CT) 06/04 Active 06/04 Sara Penn Benign essential hypertension Medications Medication Instructions Start Date Stop Date Generic Name NDC Provider DOXYCYCLINE MONOHYDRATE 100 MG CAPS Take one (1) tablet by mouth twice a day DOXYCYCLINE MONOHYDRATE 82110287464 Neli Crance DOXYCYCLINE MONOHYDRATE 100 MG CAPS 1 po bid DOXYCYCLINE MONOHYDRATE 56268593608 Neli Crance DOXYCYCLINE MONOHYDRATE 100 MG CAPS 1 po bid DOXYCYCLINE MONOHYDRATE 70277874409 Dakotah Crespo MD TRIAMCINOLONE ACETONIDE 0.1 % LOTN Use on arms twice daily TRIAMCINOLONE ACETONIDE 78864068004 Dakotah Crespo MD DOXYCYCLINE MONOHYDRATE 100 MG CAPS Take one (1) tablet by mouth twice a day DOXYCYCLINE MONOHYDRATE 68745046386 Dakotah Crespo MD DOXYCYCLINE MONOHYDRATE 100 MG CAPS 1 po bid DOXYCYCLINE MONOHYDRATE 75126831920 Dakotah Crespo MD LEVAQUIN 750 MG ORAL TABLET 1 po qd x 20 day LEVOFLOXACIN 66577876029 Dakotah Crespo MD KEFLEX 500 MG ORAL CAPSULE Take two (2) tablets by mouth twice a day CEPHALEXIN 47385199411 Neli Crance PRAVASTATIN SODIUM 40 MG TABS Take 1 tablet by mouth daily PRAVASTATIN SODIUM 37039950188 Carmelo B COZAAR 50 MG TABS Take 2 tablets by mouth daily LOSARTAN POTASSIUM 26585817930 Carmelo B NORCO 7.5-325 MG ORAL TABLET Take 1 tablet by mouth every 4 hours as needed HYDROCODONE-ACET AMINOPHEN 06159916510 Carmelo B COLACE 100 MG CAPS Take one (1) tablet by mouth twice a day as needed DOCUSATE SODIUM 72889772540 Carmelo B KEFLEX 500 MG ORAL CAPSULE Take two (2) tablets by mouth twice a day CEPHALEXIN 09142737934 Carmelo B ZIAC 5-6.25 MG ORAL TABLET Take 1 tablet by mouth daily BISOPROLOL-HYDRO CHLOROTHIAZIDE 55538154631 Carmelo B ASPIRIN 325 MG TABS Take 1 tablet by mouth daily ASPIRIN 35660432047 Carmelo B ASPIRIN EC 325 MG ORAL TABLET DELAYED RELEASE Take 1 tablet by mouth daily ASPIRIN 67945542862 Carmelo B ZIAC 5-6.25 MG ORAL TABLET Take 1 tablet by mouth daily BISOPROLOL-HYDRO CHLOROTHIAZIDE 05844582436 Carmelo B COLACE 100 MG CAPS Take one (1) tablet by mouth twice a day DOCUSATE SODIUM 92714582591 Carmelo B NORCO 7.5-325 MG ORAL TABLET 1 tablet by mouth every 4 hours as needed HYDROCODONE-ACET AMINOPHEN 06090200600 Carmelo B COZAAR 50 MG TABS Take 2 tabs by mouth daily LOSARTAN POTASSIUM 84226810816 Carmelo B PRAVACHOL 40 MG ORAL TABLET Take 1 tablet by mouth daily PRAVASTATIN SODIUM 48260114748 Carmelo B CEFAZOLIN SODIUM-DEXTROSE 2-5 GM/100ML-% SOLN 2gm IV q 8hrs [employer]/No Dressing & labs at apt. per CEFAZOLIN IN D5W [id number] [facility] CEFAZOLIN SODIUM-DEXTROSE 2-5 GM/100ML-% SOLN 2gm IV q 8hrs [employer]/No Dressing & labs at apt. per CEFAZOLIN IN D5W 46409704914 [facility] PRAVACHOL 40 MG ORAL TABLET Take 1 tablet by mouth daily PRAVASTATIN SODIUM 77289997750 Carmelo B COZAAR 50 MG TABS Take 2 tabs by mouth daily LOSARTAN POTASSIUM 49012338022 Carmelo B NORCO 7.5-325 MG ORAL TABLET 1 tablet by mouth every 4 hours as needed HYDROCODONE-ACET AMINOPHEN 69405116432 Carmelo B COLACE 100 MG CAPS Take one (1) tablet by mouth twice a day DOCUSATE SODIUM 73780600372 Carmelo B ZIAC 5-6.25 MG ORAL TABLET Take 1 tablet by mouth daily BISOPROLOL-HYDRO CHLOROTHIAZIDE 68397362485 Carmelo B ASPIRIN EC 325 MG ORAL TABLET DELAYED RELEASE Take 1 tablet by mouth daily ASPIRIN 23861820044 Carmelo B Medications Administered No information available. 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 smoking status Lab Report: CBC WITH AUTO [...] Procedures Code Procedure Name Date Entry Date CPT-92369 [facility] [id number] CBC with Differential 2017 CPT-18118 Sedimentation Rate (ESR) 201 09/13/03 CPT-31464 C- reactive protein CPT-25325 [facility] [id number] CBC with Differential 2016 CPT-90551 C- reactive protein CPT-06369 Sedimentation Rate (ESR) 201 08/17/20 CPT-97651 Sedimentation Rate (ESR) 201 08/18/19 CPT-01486 C- reactive protein [id number] CBC with Differential 2016 CPT-34491 BMP CPT-sl STAT Labs CPT-Cooral Continue oral antibiotics 24/10/24 CPT-61208 CMP [id number] CBC with Differential 2016 CPT-86901 C- reactive protein CPT-47915 Sedimentation Rate (ESR) 201 08/15/24 CPT-Cooral Continue oral antibiotics 23/09/00 CPT-calvin New Oral Antibiotic CPT-calvin New Oral Antibiotic CPT-48504 BMP [id number] CBC with Differential 2016 CPT-16687 C- reactive protein CPT-79541 Sedimentation Rate (ESR) 201 08/13/10 CPT-41714 Urinalysis with microscopic exam CPT-13522 Urine Culture & Sensitivity CPT-PICREM PICC Removal CPT-ca Continue IV antibiotics 2016 CPT-cwl Weekly Labs (Continue) 07/06 CPT-wpc Weekly PICC Line Care 07/06 [id number] CBC with Differential 2016 CPT-89609 C- reactive protein CPT-94936 Sedimentation Rate (ESR) 201 08/11/29 CPT-02578 BMP CPT-ca Continue IV antibiotics 2016 CPT-ca Continue IV antibiotics 2016 CPT-cwl Weekly Labs (Continue) 06/22 CPT-wpc Weekly PICC Line Care 06/22 CPT-ca Continue IV antibiotics 2016 CPT-wpc Weekly PICC Line Care 06/15 CPT-cwl Weekly Labs (Continue) 06/15 CPT-30580 BMP [id number] CBC with Differential 2016 CPT-80186 C- reactive protein CPT-65685 Sedimentation Rate (ESR) 201 08/11/08 CPT-sl STAT [...]
== END 2024-10-02 23:59 | disposition home or self-care (01) ==
LOC: RT 14:02
PROVIDERS: PCP Internal Medicine; Visit Provider Student in an Organized Health Care Education/Training Program
DX: I48.91 Unspecified atrial fibrillation (principal); I48.92 Unspecified atrial flutter; I49.1 Atrial premature depolarization; I47.19 Other supraventricular tachycardia; I49.3 Ventricular premature depolarization; I47.29 Other ventricular tachycardia
CPT/HCPCS: 93270

== ENCOUNTER 2024-11-14 11:00 | Outpatient (CLI) | payer MEDICARE, SELFPAY ==
[2024-11-14 18:10] LABS: Anion Gap 17.7 mEq/L (5-15); Blood Urea Nitrogen 23 mg/dl (9-20); Calcium 9.6 mg/dl (8.4-10.2); Carbon Dioxide 27 mmol/L (22.0-30.0); Chloride 101 mmol/L (98-107); Creatinine,Serum 1.10 mg/dl (0.66-1.25); Estimated Glomerular Filt Rate 64 ml/min (>60); GFR (African American) 77 ML/MIN (>60); Glucose 60 mg/dl (74-100); Potassium 4.7 mmoL/L (3.5-5.1); Sodium 141 mmol/L (136-145)
== END 2024-11-14 23:59 ==
LOC: LAB.DROPOF 11-16 00:34
PROVIDERS: PCP Internal Medicine; Visit Provider Internal Medicine
DX: I48.0 Paroxysmal atrial fibrillation (principal); I10 Essential (primary) hypertension; I25.10 Atherosclerotic heart disease of native coronary artery without angina pectoris
CPT/HCPCS: 80048